=== PATIENT | female | born 1935 | race Caucasian/White ===

== ENCOUNTER 2016-02-26 08:23 | Day surgery (SDC) | payer OTHER, MEDICARE ==
[2016-02-26] MEDS ORDERED: PROPOFOL 20 ML ONE ×2 (08:41)
[2016-02-26 08:48] VITALS: BMI 35.2
[2016-02-26 10:01] VITALS: TEMP 97.3
[2016-02-26 10:45] VITALS: BP 127/74; PULSE 53
--- NOTE | 2016-02-27 13:10 | PATH ---
Surgical Pathology Report Patient Name: [facility]. Rec. #: [id number] /Age/Gender: 1935 (Age: 80) / F Account: [id number] Location: U-ENDOSCOPY Taken: 02/26/2016 Received: 02/26/2016 Reported: 02/27/2016 Physicians: Charly Morgan M.D. Specimen(s) Received BX POLYPS CECUM Clinical History Polyp surveillance, constipation Colon polyps Final Diagnosis COLON, CECUM, POLYPS, BIOPSY: POLYPOID FRAGMENTS OF COLONIC MUCOSA WITH FOCAL ACTIVE INFLAMMATION, REACTIVE LYMPHOID AGGREGATES AND SURFACE HYPERPLASTIC CHANGE MOST SUGGESTIVE OF INFLAMMATORY TYPE POLYPS. Electronically Signed Silas Herrera M.D. Gross Description Received in formalin, labeled "polyp cecum" are 3 levin, irregular portions of soft tissue ranging from 0.1-0.6 cm in greatest dimension. The specimens are submitted in toto in one cassette. 02/26/201602/26/2016
== END 2016-02-26 11:10 | disposition home or self-care (01) ==
LOC: JASU-ENDO 08:23
PROVIDERS: ATTEND Internal Medicine Gastroenterology
PROC: 0DBH8ZX Excision of Cecum, Via Natural or Artificial Opening Endoscopic, Diagnostic (ICD-10-PCS; principal; 2016-02-26 09:00)
DX: Z86.010 Personal history of colon polyps (principal); D12.0 Benign neoplasm of cecum; K57.30 Diverticulosis of large intestine without perforation or abscess without bleeding; K64.8 Other hemorrhoids
CPT/HCPCS: 88305-TC

== ENCOUNTER 2016-06-26 11:33 | Emergency (ER) | payer OTHER, MEDICARE ==
[2016-06-26 11:40] VITALS: TEMP 98; BMI 34.3
--- NOTE | 2016-06-26 12:03 | PDOC ---
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 HISTORY OF PRESENT ILLNESS: The patient states this morning she started having pressure in her chest, along with palpitations. She states she felt dizzy and nauseous as well. He daughter says she looked "clammy". The patient denies LOC , MACK, neck pain, cough, v/d, SOB, abd pain, slurred speech, facial drooping. She took all of her normal morning medications. PCP is Dr. Pedro Mushroom Cultivator is Dr. Lopez. Vital signs on arrival are within normal limits. REVIEW OF SYSTEMS: GENERAL/CONSTITUTIONAL: No fever/chills. No weakness. No weight change. HEAD, EYES, EARS, NOSE AND THROAT: No change in vision. No ear pain or discharge. No sore throat. CARDIOVASCULAR: +chest pain. +palpitations. No chest pain or shortness of breath. RESPIRATORY: No cough, wheezing, or hemoptysis. GASTROINTESTINAL: +nausea. No vomiting, diarrhea, constipation. GENITOURINARY: No dysuria, frequency, or change in urination. MUSCULOSKELETAL: No joint or muscle swelling or pain. No neck or back pain. SKIN: No rash or easy bruising. NEUROLOGIC: +dizziness. No headache, loss of consciousness, or loss of sensation. PHYSICAL EXAM: GENERAL: The patient is awake, alert, and fully oriented, in no acute distress. She is well appearing. No diaphoresis. HEAD: Normal with no signs of trauma. ENT: Pupils equal, round and reactive to light, extraocular movements intact, sclera anicteric, conjunctiva clear. Neck supple. LUNGS: Clear to auscultation bilaterally. Normal excursion. No respiratory distress or use of accessory muscles. CV: RRR, S1/S2, no MRG. Cap refill < 2 sec. No reproducible pain with palpation of anterior chest. ABDOMEN: Soft, non-distended, non-tender even to deep palpation, no hepatomegaly or splenomegaly, no masses. EXTREMITIES: Normal range of motion, no edema. NEUROLOGICAL: Normal speech, normal gait. CN II-XII grossly intact. No slurred speech. No facial droop. PSYCH: Normal mood, normal affect. SKIN: Warm, dry, normal turgor, no rashes or lesions noted. (Candelaria Cosby) Past History - Past Medical History Anemia: No Asthma: No Cancer: Yes (LEFT BREAST CANCER,OVARIAN CANCER) Cardiac Disorders: Yes (ASHD) CVA: No COPD: Yes CHF: No Dementia: No Diabetes: No GI Disorders: Yes (GASTRITIS,HIATAL HERNIA,ACID REFLUX,COLON POLYPS) Disorders: No HTN: Yes Hypercholesterolemia: Yes Liver Disease: Yes (H/O HEPATITIS B) Seizures: No - Surgical History Abdominal Surgery: No Appendectomy: No Cardiac Surgery: Yes (CARDIAC STENT) Cholecystectomy: No Lung Surgery: No Neurologic Surgery: No Orthopedic Surgery: Yes (Bilateral Knees and Shoulders) - Psycho/Social/Smoking Cessation Hx Anxiety: No Suicidal Ideation: No Smoking History: Never smoked Have you smoked in the past 12 months: No Information on smoking cessation initiated: No Hx Alcohol Use: No Drug/Substance Use Hx: No Substance Use Type: None Hx Substance Use Treatment: No <Candelaria Cosby - Last Filed: 06/26/16 19:04> <Thee Boyd - Last Filed: 06/26/16 20:43> - Past Medical History Allergies/Adverse Reactions: Allergies Allergy/AdvReac Type Severity Reaction Status Date / Time latex Allergy Intermediate Swelling Verified 06/26/16 11:40 Home Medications: Ambulatory Orders Clopidogrel Bisulfate [Plavix -] 75 mg PO DAILY 12/29/12 Losartan/Hydrochlorothiazide [Hyzaar 50-12.5 Tablet] 1 each PO DAILY 12/29/12 Ubidecarenone [Coq-10] 100 mg PO DAILY 12/29/12 Ranolazine [Ranexa] 500 mg PO DAILY 12/30/12 Rosuvastatin Calcium [Crestor] 10 mg PO HS 12/30/12 Furosemide [Lasix -] 20 mg PO DAILY PRN 08/22/13 Cholecalciferol (Vitamin D3) [Vitamin D3] 1,200 unit PO DAILY 06/26/16 Melatonin 10 mg PO DAILY 06/26/16 Metoclopramide HCl [Reglan -] 10 mg PO TID #10 tablet 06/26/16 Multivit-Min/FA/Lycopen/Lutein [Centrum Silver Tablet] 1 each PO DAILY 06/26/16 Cardiac Specific PMH - Complaint Specific PMHX Pacemaker: No <Candelaria Cosby - Last Filed: 06/26/16 19:04> - Vital Signs Last Vital Signs Temp Pulse Resp BP Pulse Ox 98.0 F 55 L 20 97/53 92 L 06/26/16 11:37 06/26/16 19:42 06/26/16 19:42 06/26/16 19:42 06/26/16 20:16 Heart Score/ECG Review <Candelaria Cosby - Last Filed: 06/26/16 19:04> <Thee Boyd - Last Filed: 06/26/16 20:43> - ECG Intrepretation Comment:: Twelve-lead EKG was performed and reviewed by Dr. Lockwood. There is normal sinus rhythm with a normal rate. The axis is normal. The intervals are normal. Inferior infarct, age undetermined Impression: Abnormal twelve-lead EKG (Candelaria Cosby) ED Treatment Course - LABORATORY CBC & Chemistry Diagram: 06/26/16 12:30 06/26/16 12:30 <Candelaria Cosby - Last Filed: 06/26/16 19:04> - LABORATORY CBC & Chemistry Diagram: 06/26/16 12:30 06/26/16 12:30 <Thee Boyd - Last Filed: 06/26/16 20:43> - ADDITIONAL ORDERS Additional order review: Laboratory Results 06/26/16 06/26/16 06/26/16 18:05 16:30 12:30 INR Sodium 141 Potassium 3.7 Chloride 103 Carbon Dioxide 31 Anion Gap 7 L BUN 21 H D Creatinine 0.9 Creat Clearance w eGFR > 60 Random Glucose 112 H D Calcium 8.7 Total Bilirubin 0.5 AST 18 ALT 21 Alkaline Phosphatase 54 Creatine Kinase 86 90 Troponin I < 0.02 < 0.02 B-Natriuretic Peptide 141.64 Total Protein 7.1 Albumin 3.8 Urine Color Yellow Urine Appearance Cloudy Urine pH 8.0 Ur Specific [place] 1.015 Urine Protein Negative Urine Glucose (UA) Negative Urine Ketones Negative Urine Blood Negative Urine Nitrite Negative Urine Bilirubin Negative Urine Urobilinogen Negative Ur Leukocyte Esterase Trace H Urine RBC 4 Urine WBC 11 Ur Epithelial Cells Rare Urine Mucus Rare Urine Yeast Few 06/26/16 12:30 INR 1.08 Sodium Potassium Chloride Carbon Dioxide Anion Gap BUN Creatinine Creat Clearance w eGFR Random Glucose Calcium Total Bilirubin AST ALT Alkaline Phosphatase Creatine Kinase Troponin I B-Natriuretic Peptide Total Protein Albumin Urine Color Urine Appearance Urine pH Ur Specific [place] Urine Protein Urine Glucose (UA) Urine Ketones Urine Blood Urine Nitrite Urine Bilirubin Urine Urobilinogen Ur Leukocyte Esterase Urine RBC Urine WBC Ur Epithelial Cells Urine Mucus Urine Yeast 06/26/16 12:30 RBC 4.14 MCV 94.6 MCHC 33.9 RDW 13.4 MPV 8.4 Neutrophils % 62.6 Lymphocytes % 26.8 D Monocytes % 8.5 Eosinophils % 1.0 Basophils % 1.1 - Medications Given in the ED: ED Medications Discontinued Medications Generic Name Dose Route Start Last Admin Trade Name Freq PRN Reason Stop Dose Admin Al Hydroxide/Mg Hydroxide 30 ml 06/26/16 14:34 06/26/16 14:53 Mylanta Oral Suspension - PO 06/26/16 14:35 30 ml ONCE ONE Administration Diphenhydramine HCl 25 mg 06/26/16 17:23 06/26/16 17:30 Benadryl Injection - IVPUSH 06/26/16 17:24 25 mg ONCE ONE Administration Famotidine/Sodium Chloride 50 mls @ 100 mls/hr 06/26/16 13:04 06/26/16 13:19 Pepcid 20 Mg Premixed Ivpb - IVPB 06/26/16 13:33 100 mls/hr ONCE ONE Administration Sodium Chloride 1,000 mls @ 1,000 mls/hr 06/26/16 13:44 06/26/16 14:18 Normal Saline - IV 06/26/16 14:43 1,000 mls/hr ASDIR STA Administration Sodium Chloride 1,000 mls @ 1,000 mls/hr 06/26/16 16:41 06/26/16 17:18 Normal Saline - IV 06/26/16 17:40 1,000 mls/hr ASDIR STA Administration Metoclopramide HCl 10 mg 06/26/16 17:23 06/26/16 17:30 Reglan Injection - IVPB 06/26/16 17:24 10 mg ONCE ONE Administration Ondansetron HCl 4 mg 06/26/16 13:23 06/26/16 13:27 Zofran Injection IVPB 06/26/16 13:24 4 mg ONCE ONE Administration Ondansetron HCl 4 mg 06/26/16 14:09 06/26/16 14:18 Zofran Injection IVPUSH 06/26/16 14:10 4 mg ONCE ONE Administration Medical Decision Making <Candelaria Cosby - Last Filed: 06/26/16 19:04> <Thee Boyd - Last Filed: 06/26/16 20:43> - Medical Decision Making A/P: 80 y/o female with chest pain, palpitations, dizziness and nausea this morning. The patient has a history of PR with 1 stent. She is currently on Plavix. Plan is as follows: 1. EKG 2. CXR 3. Labs CXR IMPRESSION: No evidence of pneumonia, CHF, pleural effusion. EKG normal Labs unremarkable. Pt states her chest pain has resolved. She is now only complaining of "sour stomach". The patient vomited. Given IV zofran. She vomited again. Gave another IV zofran, pepcid and IV fluids The patient was doing ok, waiting for 2nd troponin at 5pm when she vomited a large bolus of food. She denies abdominal pain. She does not want any more zofran. She wants more fluids. The patient continued to retch. Ordered IV benadryl and reglan. The patient states she feels much better after reglan and benadryl. She states that immediately calmed her stomach. She continues to deny abd pain. As long as 2nd cardiac enzyme is negative will d/c to home with rx for reglan. INstructed her and family to make sure she rehydrates and slowly reintroduces bland foods. Instructed them to call Dr. Pedro on Wednesday for follow up and return to the ER immediately with any worsening or concerning symptoms. The patient verbalizes understanding of all instructions, has no further questions and is awaiting discharge. (Candelaria Cosby) *DC/Admit/Observation/Transfer <Candelaria Cosby - Last Filed: 06/26/16 19:04> - Discharge Dispostion Admit: No <Thee Boyd - Last Filed: 06/26/16 20:43> Diagnosis at time of Disposition: Atypical chest pain Vomiting Qualifiers: Vomiting type: unspecified Vomiting Intractability: non-intractable Nausea presence: with nausea Qualified Code(s): R11.2 - Nausea with vomiting, unspecified - Discharge Dispostion Disposition: HOME Condition at time of disposition: Improved - Prescriptions Prescriptions: Metoclopramide HCl [Reglan -] 10 mg PO TID #10 tablet - Referrals Referrals: Chandler Pedro MD [Staff Physician] - (Call Wednesday) - Patient Instructions Printed Discharge Instructions: DI for Atypical Chest Pain, DI for Vomiting -- Adult Additional Instructions: Discharge Instructions: -A prescription was sent to your pharmacy for medication for vomiting; please take only as needed -Drink at least 64oz of water daily and slowly introduce bland foods until feeling better -Call Dr. Pedro on Wednesday to schedule follow up appointment -Return to the ER with any worsening or concerning symptoms
[2016-06-26 12:53] LABS: BASOPHIL 1.1 % (0-2.0); MCH 32.1 pg (25.7-33.7); MCHC 33.9 g/dl (32.0-36.0); MEAN CELL VOLUME 94.6 fl (80-96); MEAN PLT VOLUME 8.4 fl (7.5-11.1); NEUTROPHILS 62.6 % (42.8-82.8); PLATELET COUNT 187 K/MM3 (134-434); RDW 13.4 % (11.6-15.6)
[2016-06-26] MEDS ORDERED: FAMOTIDINE 20 MG/50 ML IVPB 50 ML IVPB ONE ×2 (13:04→13:14)
[2016-06-26 13:11] LABS: ALBUMIN 3.8 g/dl (3.4-5.0); ANION GAP 7 (8-16); CALCIUM 8.7 mg/dL (8.5-10.1); CO2 31 mmol/L (21-32); COCKROFT - GAULT 73.7715; CREATININE 0.9 mg/dL (0.55-1.02); GLUCOSE,RANDOM 112 mg/dL (74-106); SGOT/AST 18 U/L (15-37); SGPT/ALT 21 U/L (12-78); TOT PROT 7.1 g/dl (6.4-8.2)
[2016-06-26] MEDS ORDERED: ONDANSETRON 4 MG/2 ML VIAL IVPB ONE (13:23)
[2016-06-26] MEDS ORDERED: ONDANSETRON 4 MG/2 ML VIAL ONE ×2 (13:24→14:14)
[2016-06-26 13:26] LABS: ALK PHOS 54 U/L (45-117); BILIRUBIN,TOTAL 0.5 mg/dL (0.2-1.0); TROPONIN I < 0.02 ng/ml (0.00-0.05)
[2016-06-26 13:37] LABS: INR 1.08 (0.82-1.09); PROTHROMBIN TIME (PATIENT) 11.9 SEC (9.98-11.88)
[2016-06-26] MEDS ORDERED: SODIUM CHLORIDE 1,000 ML IV STA ×2 (13:44→16:41)
[2016-06-26] MEDS ORDERED: ONDANSETRON 4 MG/2 ML VIAL IVPUSH ONE (14:09)
[2016-06-26] MEDS ORDERED: MAG HYDROX/AL HYDROX/SIMETH 30 ML UNIT-DOSE CUP PO ONE (14:34)
[2016-06-26] MEDS ORDERED: MAG HYDROX/AL HYDROX/SIMETH 30 ML UNIT-DOSE CUP ONE (14:50)
--- NOTE | 2016-06-26 16:10 | EKG ---
Test Reason : Blood Pressure : / mmHG Vent. Rate : 066 BPM Atrial Rate : 066 BPM P-R Int : 156 ms QRS Dur : 072 ms QT Int : 442 ms P-R-T Axes : 044 -12 034 degrees QTc Int : 463 ms NORMAL SINUS RHYTHM INFERIOR INFARCT (CITED ON OR BEFORE 22-AUG-2013) ABNORMAL ECG WHEN COMPARED WITH ECG OF 22-AUG-2013 11:22, NO SIGNIFICANT CHANGE WAS FOUND Confirmed by COREY JOHNSON MD ([id number]) on 06/26/2016 4:10:24 PM Referred By: Confirmed By:COREY JOHNSON MD
[2016-06-26 17:01] LABS: URINE APPEARANCE CLOUDY; URINE BILIRUBIN NEGATIVE (NEGATIVE); URINE BLOOD NEGATIVE (NEGATIVE); URINE COLOR YELLOW; URINE GLUCOSE (UA) NEGATIVE (NEGATIVE); URINE KETONE NEGATIVE (NEGATIVE); URINE NITRITE NEGATIVE (NEGATIVE); URINE PROTEIN NEGATIVE (NEGATIVE); URINE UROBILINOGEN NEGATIVE E.U./dl (0.2-1.0)
[2016-06-26] MEDS ORDERED: METOCLOPRAMIDE HCL INJECTION 10 MG/2 ML VIAL ONE (17:08)
[2016-06-26 17:20] LABS: URINE LEUK ESTERASE TRACE (NEGATIVE)
[2016-06-26] MEDS ORDERED: METOCLOPRAMIDE HCL INJECTION 10 MG/2 ML VIAL IVPB ONE (17:23)
[2016-06-26 18:06] LABS: URINE MUCUS RARE; URINE RBC 4 /hpf (0-3); URINE WBC 11 /hpf (3-5); YEAST FEW
[2016-06-26 19:24] LABS: TROPONIN I < 0.02 ng/ml (0.00-0.05)
[2016-06-26 19:43] VITALS: BP 97/53; PULSE 55
== END 2016-06-26 21:05 | disposition home or self-care (01) ==
LOC: JER 11:33
PROC: 3E0337Z Introduction of Electrolytic and Water Balance Substance into Peripheral Vein, Percutaneous Approach (ICD-10-PCS; principal; 2016-06-26)
PROC: 3E033GC Introduction of Other Therapeutic Substance into Peripheral Vein, Percutaneous Approach (ICD-10-PCS; 2016-06-26)
PROC: 3E033GC Introduction of Other Therapeutic Substance into Peripheral Vein, Percutaneous Approach (ICD-10-PCS; 2016-06-26)
PROC: 3E033GC Introduction of Other Therapeutic Substance into Peripheral Vein, Percutaneous Approach (ICD-10-PCS; 2016-06-26)
DX: R07.89 Other chest pain (principal); R11.2 Nausea with vomiting, unspecified; I25.2 Old myocardial infarction; I25.10 Atherosclerotic heart disease of native coronary artery without angina pectoris; I10 Essential (primary) hypertension; Z95.5 Presence of coronary angioplasty implant and graft; E78.5 Hyperlipidemia, unspecified; J44.9 Chronic obstructive pulmonary disease, unspecified; Z86.19 Personal history of other infectious and parasitic diseases; Z85.3 Personal history of malignant neoplasm of breast; Z85.43 Personal history of malignant neoplasm of ovary; Z90.12 Acquired absence of left breast and nipple
CPT/HCPCS: 36415; 71020-TC; 80053; 81003; 81015; 82550; 83880; 84484; 85025; 85610; 87086; 87186; 93005; 93010; 96361; 96365; 96375; 99284-25

== ENCOUNTER 2018-01-07 11:38 | Observation (INO) | payer OTHER, MEDICARE ==
--- NOTE | 2018-01-07 12:02 | PDOC ---
History of Present Illness - General Chief Complaint: Syncope/Near Syncope Stated Complaint: INJURY Time Seen by Provider: 01/07/18 11:56 - History of Present Illness Initial Comments: 01/07/18 12:50 The patient is an 82 year old female with a history of HTN, HLD, CAD, MN, Breast CA who presents for evaluation following syncope. The patient reports that she was in a grocery store pushing a cart when she had a witnessed syncopal episode. She states she was pushing the shopping cart and the next thing she knew she was on the floor. She notes that she did hit her head on the floor. She otherwise denies fevers, chills, SOB, chest pain, nausea, vomiting, abdominal pain, numbness, tingling, weakness, or changes with urination or bowel movements. Past History - Past Medical History Allergies/Adverse Reactions: Allergies Allergy/AdvReac Type Severity Reaction Status Date / Time latex Allergy Intermediate Swelling Verified 01/07/18 11:49 Home Medications: Ambulatory Orders Losartan/Hydrochlorothiazide [Hyzaar 50-12.5 Tablet] 1 each PO DAILY 12/29/12 Ubidecarenone [Coq-10] 100 mg PO DAILY 12/29/12 Ranolazine [Ranexa] 500 mg PO BID 12/30/12 Cholecalciferol (Vitamin D3) [Vitamin D3] 1,000 unit PO DAILY 06/26/16 Multivit-Min/FA/Lycopen/Lutein [Centrum Silver Tablet] 1 each PO DAILY 06/26/16 Budesonide [Budesonide ER] 9 mg IH ASDIR 01/07/18 Clopidogrel Bisulfate [Plavix -] 75 mg PO DAILY 01/07/18 Melatonin 10 mg PO HS 01/07/18 Mv-Min/FA/Vit K/Lycop/Lut/Zeax [Ocuvite Eye + Multi Tablet] 1 each PO ASDIR Rosuvastatin [Crestor -] 10 mg PO DAILY 01/07/18 Tiotropium [place] [Spiriva] 1 inh PO DAILY 01/07/18 Anemia: No Asthma: No Cancer: Yes (LEFT BREAST CANCER,OVARIAN CANCER) Cardiac Disorders: Yes (ASHD) CVA: No COPD: Yes CHF: No Dementia: No Diabetes: No GI Disorders: Yes (GASTRITIS,HIATAL HERNIA,ACID REFLUX,COLON POLYPS) Disorders: No HTN: Yes Hypercholesterolemia: Yes Liver Disease: Yes (H/O HEPATITIS B) Seizures: No Thyroid Disease: No - Surgical History Abdominal Surgery: No Appendectomy: No Cardiac Surgery: Yes (CARDIAC STENT) Cholecystectomy: No Lung Surgery: No Neurologic Surgery: No Orthopedic Surgery: Yes (Bilateral Knees and Shoulders) - Suicide/Smoking/Psychosocial Hx Smoking History: Never smoked Have you smoked in the past 12 months: No Hx Alcohol Use: No Drug/Substance Use Hx: No Substance Use Type: None Hx Substance Use Treatment: No Review of Systems - Review of Systems Comments:: 01/07/18 12:52 Constitutional: No fevers, chills, fatigue, malaise HEENT: Head Trauma. No Rhinorrhea, nasal congestion, visual changes Cardiovascular: Syncope. No chest pain, palpitations, lightheadedness Respiratory: No Cough, SOB, Hemoptysis, Gastrointestinal: No Abdominal pain, Nausea, Vomiting, Constipation, Diarrhea, Melena Genitourinary: No Dysuria, Frequency, Urgency, Hesitancy, Hematuria, Flank pain Musculoskeletal: No Myalgia, arthralgia Skin: No rashes, itching, bruising, pallor Neurologic: No Headache, Dizziness, Numbness, Weakness, or Tingling Psychiatric: No Hallucinations. No SI or HI *Physical Exam - Vital Signs Last Vital Signs Temp Pulse Resp BP Pulse Ox 97.6 F 69 16 142/68 100 01/07/18 11:49 01/07/18 11:49 01/07/18 11:49 01/07/18 11:49 01/07/18 11:49 - Physical Exam Comments: 01/07/18 12:52 General Appearance: Nourished. No Apparent Distress HEENT: EOMI, BAILEY. No Pharyngeal Erythema, Tonsillar Exudate, Tonsillar Erythema Neck: No Cervical Lymphadenopathy Respiratory/Chest: Lungs Clear, Normal Breath Sounds. No Crackles, Rales, Rhonchi, Wheezing Cardiovascular: Regular Rhythm, Regular Rate. No Murmur, Gallops, Rubs Gastrointestinal/Abdominal: Normal Bowel Sounds, Soft. No Guarding, Rebound, Tenderness Musculoskeletal: No CVA Tenderness Extremity: Normal Capillary Refill Integumentary: Normal Color, Dry, Warm Neurologic: ironer II-XII NML intact, Fully Oriented, Alert, Normal Mood/Affect, Normal Response, Motor Strength 5/5. Moderate Sedation - Procedure Monitoring Vital Signs: Procedure Monitoring Vital Signs Temperature 97.6 F 01/07/18 11:49 Pulse Rate 69 01/07/18 11:49 Respiratory Rate 16 01/07/18 11:49 Blood Pressure 142/68 01/07/18 11:49 O2 Sat by Pulse Oximetry (%) 100 01/07/18 11:49 ED Treatment Course - LABORATORY CBC & Chemistry Diagram: 01/07/18 12:24 01/07/18 12:24 Medical Decision Making - Medical Decision Making 01/07/18 12:53 The patient is an 82 year old female with a history of HTN, HLD, CAD, MN, Breast CA who presents for evaluation following syncope. Differential includes but is not limited to: ACS, Arrhythmia, Intracranial process, Infectious, Metabolic Derangement. Given the patient's history and physical exam, we will obtain a cbc, cmp, troponin, ekg, chest plain film, head CT to evaluate further. We will continue to monitor and reassess while here in the ED. 01/07/18 17:09 CBC, cmp, troponin are unremarkable. Chest plain film is unremarkable. Head CT is unremarkable as read by our radiologist. UA demonstrates positive leuk esterase and elevated wbc consistent with a UTI. We will treat with ceftriaxone. Given the patient's syncopal episode and co-morbidities, she will require observation admission for further monitoring. We discussed the case with the admitting team who accepted the patient for admission. *DC/Admit/Observation/Transfer Diagnosis at time of Disposition: Syncope Qualifiers: Syncope type: unspecified Qualified Code(s): R55 - Syncope and collapse UTI (urinary tract infection) Qualifiers: Urinary tract infection type: site unspecified Hematuria presence: without hematuria Qualified Code(s): N39.0 - Urinary tract infection, site not specified - Discharge Dispostion Condition at time of disposition: Stable Decision to Admit order: Yes - Referrals - Patient Instructions - Post Discharge Activity
[2018-01-07 12:29] LABS: BASO % 1.3 % (0-2.0); EOS % 1.6 % (0-4.5); HEMOGLOBIN 14.4 GM/dL (10.7-15.3); LYMPH % 37.9 % (8-40); MCH 32.8 pg (25.7-33.7); MCHC 32.7 g/dl (32.0-36.0); MEAN CELL VOLUME 100.2 fl (80-96); MEAN PLT VOLUME 8.6 fl (7.5-11.1); MONO % 10.1 % (3.8-10.2); NEUT % 49.1 % (42.8-82.8); PLATELET COUNT 172 K/MM3 (134-434); RBC 4.39 M/mm3 (3.60-5.2); RDW 13.1 % (11.6-15.6); WHITE BLOOD COUNT 7.2 K/mm3 (4.0-10.0)
--- NOTE | 2018-01-07 12:34 | PDOC ---
Attending Attestation - Resident Resident Name: Modesto Mayer - ED Attending Attestation I have performed the following: I have examined & evaluated the patient, The case was reviewed & discussed with the resident, I agree w/resident's findings & plan, Exceptions are as noted - HPI HPI: 01/07/18 16:51 82 yo F here h/o cad, mi hld, htn, breast ca s/p syncopal episode while in grocery store pushing a care, next thing she knew she was on floor . pt denies cp or palpitation. no f/c no n/v no abd pain. no h/o prior syncope. no leg swelling. no h/o pe or dvt. did hit her head on the floor. 01/07/18 17:11 - Physicial Exam PE: 01/07/18 16:52 awake alert lungs clear bilaterally heart rrr no mrg abd soft nt nd. ext wwp no edema. no calf tenderness. alert oriented x 3 5/5 all four ext. - Medical Decision Making 01/07/18 16:53 differntial infection such as uti, pna, dysrhthmia, anemia dehydration. plan lab ekg tele monitoring. uq cxr ua. pt with uti, will treat with abx, admit tele r/o dysrhtymia. ekg unremarkable. Heart Score/ECG Review #1 General ECG Interpretation: Sinus Rhythm, Normal Rate (64), Normal Intervals, No acute ischemic changes
[2018-01-07 13:16] LABS: ALBUMIN 3.4 g/dl (3.4-5.0); ALK PHOS 71 U/L (45-117); ANION GAP 6 MMOL/L (8-16); BILIRUBIN,TOTAL 0.6 mg/dL (0.2-1); BLOOD UREA NITROGEN 19 mg/dL (7-18); CALCIUM 8.8 mg/dL (8.5-10.1); CHLORIDE 101 mmol/L (98-107); CO2 31 mmol/L (21-32); CREATININE 0.8 mg/dL (0.55-1.3); GLUCOSE,RANDOM 94 mg/dL (74-106); POTASSIUM 4.3 mmol/L (3.5-5.1); SGOT/AST 43 U/L (15-37); SGPT/ALT 35 U/L (13-61); SODIUM 138 mmol/L (136-145); TOT PROT 7.2 g/dl (6.4-8.2)
[2018-01-07 15:08] LABS: URINE APPEARANCE CLEAR; URINE BILIRUBIN NEGATIVE (<2.0 mg/dL); URINE COLOR LTYELLOW; URINE GLUCOSE (UA) NEGATIVE (NEGATIVE); URINE KETONE NEGATIVE (NEGATIVE); URINE LEUK ESTERASE 3+ (NEGATIVE); URINE NITRITE NEGATIVE (NEGATIVE); URINE PROTEIN NEGATIVE (NEGATIVE); URINE UROBILINOGEN NEGATIVE mg/dL (0.2-1.0)
[2018-01-07] MEDS ORDERED: CEFTRIAXONE 1 GM in DEXTROSE 5%-WATER - 100 ML IVPB ONE (15:46)
[2018-01-07] MEDS ORDERED: SODIUM CHLORIDE 1,000 ML IV SCH (16:15)
[2018-01-07] MEDS ORDERED: CEFTRIAXONE 1 GM/50 ML BAG ONE (16:18)
--- NOTE | 2018-01-07 16:21 | HP ---
CHIEF COMPLAINT: syncope PCP: HISTORY OF PRESENT ILLNESS: 82 yo F with PMHx HTN, HLD, CAD, [place], Breast CA who presents for evaluation following syncope. The patient reports that she was in a grocery store pushing a cart when she had a witnessed syncopal episode. She states she was pushing the shopping cart and the next thing she knew she was on the floor. She notes that she did hit her head on the floor. She otherwise denies fevers, chills, SOB, chest pain, nausea, vomiting. She endorses pyuria and increased frequency. ER course was notable for: (1)EKG shows Sinus Rhythm, Normal Rate (64), Normal Intervals, No acute ischemic changes (2)UA shows UTI (3)1gm Rocephin given. 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 PAST SURGICAL HISTORY: Social History: Smoking:never Alcohol:denies Drugs: denies Family History: Allergies latex Allergy (Intermediate, Verified 01/07/18 11:49) Swelling HOME MEDICATIONS: Home Medications Medication Instructions Recorded Losartan/Hydrochlorothiazide 1 each PO DAILY 12/29/12 [Hyzaar 50-12.5 Tablet] Ubidecarenone [Coq-10] 100 mg PO DAILY 12/29/12 Ranolazine [Ranexa] 500 mg PO BID 12/30/12 Cholecalciferol (Vitamin D3) 1,000 unit PO DAILY 06/26/16 [Vitamin D3] Multivit-Min/FA/Lycopen/Lutein 1 each PO DAILY 06/26/16 [Centrum Silver Tablet] Budesonide [Budesonide ER] 9 mg IH ASDIR 01/07/18 Clopidogrel Bisulfate [Plavix -] 75 mg PO DAILY 01/07/18 Melatonin 10 mg PO HS 01/07/18 Mv-Min/FA/Vit K/Lycop/Lut/Zeax 1 each PO ASDIR 01/07/18 [Ocuvite Eye + Multi Tablet] Rosuvastatin [Crestor -] 10 mg PO DAILY 01/07/18 Tiotropium [place] [Spiriva] 1 inh PO DAILY 01/07/18 REVIEW OF SYSTEMS CONSTITUTIONAL: Absent: fever, chills, diaphoresis, generalized weakness, malaise, loss of appetite, weight change HEENT: Absent: rhinorrhea, nasal congestion, throat pain, throat swelling, difficulty swallowing, mouth swelling, ear pain, eye pain, visual changes CARDIOVASCULAR: syncope Absent: chest pain,, palpitations, irregular heart rate, lightheadedness, peripheral edema RESPIRATORY: Absent: cough, shortness of breath, dyspnea with exertion, orthopnea, wheezing, stridor, hemoptysis GASTROINTESTINAL: Absent: abdominal pain, abdominal distension, nausea, vomiting, diarrhea, constipation, melena, hematochezia GENITOURINARY: Absent: dysuria, frequency, urgency, hesitancy, hematuria, flank pain, genital pain MUSCULOSKELETAL: Absent: myalgia, arthralgia, joint swelling, back pain, neck pain SKIN: Absent: rash, itching, pallor HEMATOLOGIC/IMMUNOLOGIC: Absent: easy bleeding, easy bruising, lymphadenopathy, frequent infections ENDOCRINE: Absent: unexplained weight gain, unexplained weight loss, heat intolerance, cold intolerance NEUROLOGIC: dizziness, unsteady gait Absent: headache, focal weakness or paresthesias, , seizure, mental status changes, bladder or bowel incontinence PSYCHIATRIC: Absent: anxiety, depression, suicidal or homicidal ideation, hallucinations. PHYSICAL EXAMINATION Vital Signs - 24 hr 01/07/18 11:49 Temperature 97.6 F Pulse Rate 69 Respiratory 16 Rate Blood Pressure 142/68 O2 Sat by Pulse 100 Oximetry (%) GENERAL: Awake and alert, NAD HEAD: NC, small hematoma on right parietal area of scalp . EYES: Pupils equal, round and reactive to light, extraocular movements intact, sclera anicteric, conjunctiva clear. No lid lag. EARS, NOSE, THROAT: Ears normal, nares patent, oropharynx clear without exudates. Moist mucous membranes. NECK: Normal range of motion, supple without lymphadenopathy, JVD, or masses. LUNGS: Breath sounds equal, clear to auscultation bilaterally. No wheezes, and no crackles. No accessory muscle use. HEART: Regular rate and rhythm, normal S1 and S2 without murmur, rub or gallop. ABDOMEN: Soft, suprapubic tenderness. , not distended, normoactive bowel sounds , no guarding, no rebound, no masses. No hepatomegaly or splenomegaly. MUSCULOSKELETAL: Normal range of motion at all joints. No bony deformities or tenderness. No CVA tenderness. UPPER EXTREMITIES: 2+ pulses, warm, well-perfused. No cyanosis. No clubbing. No peripheral edema. LOWER EXTREMITIES: 2+ pulses, warm, well-perfused. No calf tenderness. No peripheral edema. NEUROLOGICAL: Cranial nerves II-XII intact. Normal speech. Normal gait. PSYCHIATRIC: Cooperative. Good eye contact. Appropriate mood and affect. SKIN: Warm, dry, normal turgor, no rashes or lesions noted, normal capillary refill. Laboratory Results - last 24 hr 01/07/18 01/07/18 01/07/18 12:24 12:24 12:24 WBC 7.2 RBC 4.39 Hgb 14.4 Hct 44.0 MCV 100.2 H MCH 32.8 MCHC 32.7 RDW 13.1 Plt Count 172 MPV 8.6 Absolute Neuts (auto) 3.5 Neutrophils % 49.1 D Lymphocytes % 37.9 D Monocytes % 10.1 Eosinophils % 1.6 Basophils % 1.3 Nucleated RBC % 0 Sodium 138 Potassium 4.3 Chloride 101 Carbon Dioxide 31 Anion Gap 6 L BUN 19 H Creatinine 0.8 Creat Clearance w eGFR > 60 Random Glucose 94 Calcium 8.8 Total Bilirubin 0.6 AST 43 H ALT 35 Alkaline Phosphatase 71 Creatine Kinase 87 Troponin I < 0.02 Total Protein 7.2 Albumin 3.4 Urine Color Urine Appearance Urine pH Ur Specific [place] Urine Protein Urine Glucose (UA) Urine Ketones Urine Blood Urine Nitrite Urine Bilirubin Urine Urobilinogen Ur Leukocyte Esterase Urine WBC (Auto) Urine RBC (Auto) 01/07/18 14:56 WBC RBC Hgb Hct MCV MCH MCHC RDW Plt Count MPV Absolute Neuts (auto) Neutrophils % Lymphocytes % Monocytes % Eosinophils % Basophils % Nucleated RBC % Sodium Potassium Chloride Carbon Dioxide Anion Gap BUN Creatinine Creat Clearance w eGFR Random Glucose Calcium Total Bilirubin AST ALT Alkaline Phosphatase Creatine Kinase Troponin I Total Protein Albumin Urine Color Ltyellow Urine Appearance Clear Urine pH 6.0 Ur Specific [place] 1.010 Urine Protein Negative Urine Glucose (UA) Negative Urine Ketones Negative Urine Blood Negative Urine Nitrite Negative Urine Bilirubin Negative Urine Urobilinogen Negative Ur Leukocyte Esterase 3+ H Urine WBC (Auto) 14 Urine RBC (Auto) 1 ASSESSMENT/PLAN: 82 yo F with PMHx HTN, HLD, CAD, [place], Breast CA who presents for evaluation following syncope placed on observation to telemetry. Problem List - Problem (1) Syncope Assessment/Plan: most likely secondary to acute UTI. * place on observation to telemetry. * Orthostatic vital signs Q8H * Trend trops * Echo and carotid doppler pending * Cardiology consult * repeat EKG in AM * IVF with NS @ 50ml/hr (2) UTI (urinary tract infection) Assessment/Plan: * Urine cultures and sensativity pending. * Continue Ceftiaxone 1gm daily. * Repeat CBC in AM (3) CAD (coronary artery disease) Assessment/Plan: Continue statin and ranexa. (4) HTN (hypertension) Assessment/Plan: Continue HCTZ and losartan. (5) Hyperlipidemia type II Assessment/Plan: continue statin. Visit type - Emergency Visit Emergency Visit: Yes ED Registration Date: 01/07/18 Care time: The patient presented to the Emergency Department on the above date and was hospitalized for further evaluation of their emergent condition. - New Patient This patient is new to me today: Yes Date on this admission: 01/10/18 - Critical Care Critical Care patient: No
--- NOTE | 2018-01-07 17:36 | PN ---
Teaching Attending Note Name of Resident: Remberto Rosa ATTENDING PHYSICIAN STATEMENT I saw and evaluated the patient. I reviewed the resident's note and discussed the case with the resident. I agree with the resident's findings and plan as documented. SUBJECTIVE: Mrs Fonseca is a very pleasant 82 year old female who presents with syncopal episode and dysuria Past Medical History Cardio/Vascular CAD,HTN Pulmonary Sleep Apnea Heme/Onc Cancer Psych Anxiety,Depression Past Surgical History Past Surgical History Hysterectomy,Joint Replacement,Mastectomy Allergies Allergy/AdvReac Type Severity Reaction Status Date / Time latex Allergy Intermediate Swelling Verified 01/07/18 11:49 Home Medications Medication Instructions Recorded Losartan/Hydrochlorothiazide 1 each PO DAILY 12/29/12 [Hyzaar 50-12.5 Tablet] Ubidecarenone [Coq-10] 100 mg PO DAILY 12/29/12 Ranolazine [Ranexa] 500 mg PO BID 12/30/12 Cholecalciferol (Vitamin D3) 1,000 unit PO DAILY 06/26/16 [Vitamin D3] Multivit-Min/FA/Lycopen/Lutein 1 each PO DAILY 06/26/16 [Centrum Silver Tablet] Budesonide [Budesonide ER] 9 mg IH ASDIR 01/07/18 Clopidogrel Bisulfate [Plavix -] 75 mg PO DAILY 01/07/18 Melatonin 10 mg PO HS 01/07/18 Mv-Min/FA/Vit K/Lycop/Lut/Zeax 1 each PO ASDIR 01/07/18 [Ocuvite Eye + Multi Tablet] Rosuvastatin [Crestor -] 10 mg PO DAILY 01/07/18 Tiotropium [place] [Spiriva] 1 inh PO DAILY 01/07/18 Social History Smoking history Never smoked Have you smoked in the past 12 No months Hx Alcohol Use No ROS: patient complains of dysuria. Otherwise FROS negative OBJECTIVE: Gen: nad CV: rrr Pulm: ctab Abd: +bs, s/nt/nd Ext: no c/c/e ASSESSMENT AND PLAN: 1. Syncope 2. UTI 3. CAD 4. HTN -admit to telemetry observation -check ECHO and carotid ultrasound -cardiology consult -check orthostatics -rocephin for UTI -gentle hydration Problem List - Problems (1) Syncope Code(s): R55 - SYNCOPE AND COLLAPSE Qualifiers: Syncope type: unspecified Qualified Code(s): R55 - Syncope and collapse (2) UTI (urinary tract infection) Code(s): N39.0 - URINARY TRACT INFECTION, SITE NOT SPECIFIED Qualifiers: Urinary tract infection type: site unspecified Hematuria presence: without hematuria Qualified Code(s): N39.0 - Urinary tract infection, site not specified (3) CAD (coronary artery disease) Code(s): I25.10 - ATHSCL HEART DISEASE OF [place] CORONARY ARTERY W/O ANG PCTRS Qualifiers: Coronary Disease-Associated Artery/Lesion type: [place] artery [place] vs. transplanted heart: [place] heart Associated angina: with stable angina Qualified Code(s): I25.118 - Atherosclerotic heart disease of [place] coronary artery with other forms of angina pectoris (4) HTN (hypertension) Code(s): I10 - ESSENTIAL (PRIMARY) HYPERTENSION Qualifiers: Hypertension type: essential hypertension Qualified Code(s): I10 - Essential (primary) hypertension
[2018-01-07] MEDS: ROSUVASTATIN CA 10 MG TABLET (FP) PO SCH (21:53)
[2018-01-07] MEDS: RANOLAZINE E.R. 500 MG TABLET (FP) PO SCH (21:53)
[2018-01-07] MEDS: MELATONIN 5 MG TABLETS PO SCH (21:53)
[2018-01-07] MEDS ORDERED: MELATONIN 10 MG PO SCH (22:00)
[2018-01-08 04:55] VITALS: BMI 30.9
[2018-01-08 06:43] LABS: BASO % 0.7 % (0-2.0); EOS % 1.4 % (0-4.5); HEMATOCRIT 39.7 % (32.4-45.2); LYMPH % 39.5 % (8-40); MCH 32.6 pg (25.7-33.7); MCHC 32.8 g/dl (32.0-36.0); MEAN CELL VOLUME 99.5 fl (80-96); MONO % 12.7 % (3.8-10.2); NEUT % 45.7 % (42.8-82.8); PLATELET COUNT 142 K/MM3 (134-434); RBC 3.98 M/mm3 (3.60-5.2); WHITE BLOOD COUNT 5.7 K/mm3 (4.0-10.0)
[2018-01-08 06:57] LABS: ALBUMIN 2.9 g/dl (3.4-5.0); ALK PHOS 57 U/L (45-117); ANION GAP 8 MMOL/L (8-16); BILIRUBIN,TOTAL 0.6 mg/dL (0.2-1); BLOOD UREA NITROGEN 15 mg/dL (7-18); CALCIUM 8.3 mg/dL (8.5-10.1); CHLORIDE 105 mmol/L (98-107); CO2 28 mmol/L (21-32); CREATININE 0.8 mg/dL (0.55-1.3); GLUCOSE,RANDOM 85 mg/dL (74-106); MAGNESIUM 2.1 mg/dL (1.8-2.4); PHOSPHOROUS 3.5 mg/dL (2.5-4.9); POTASSIUM 3.6 mmol/L (3.5-5.1); SGOT/AST 24 U/L (15-37); SGPT/ALT 27 U/L (13-61); SODIUM 141 mmol/L (136-145); TOT PROT 5.8 g/dl (6.4-8.2)
[2018-01-08] MEDS ORDERED: LOSARTAN 50MG/HCTZ 12.5MG 1 TAB (FP) PO SCH (10:00)
[2018-01-08] MEDS ORDERED: PATIENT'S OWN MEDICATION (NON-FORMULARY) (Multivit-Min/Fa/Lycopen/Lutein [Centrum Silver T PO SCH (10:00)
[2018-01-08] MEDS ORDERED: PATIENT'S OWN MEDICATION (NON-FORMULARY) (Tiotropium Bromide [Spiriva] 1 INH) PO SCH (10:00)
[2018-01-08] MEDS ORDERED: PATIENT'S OWN MEDICATION (NON-FORMULARY) (Ubidecarenone [Coq-10] 100 MG) PO SCH (10:00)
[2018-01-08] MEDS ORDERED: CEFTRIAXONE 1 GM in DEXTROSE 5%-WATER - 50 ML IVPB SCH (10:00)
--- NOTE | 2018-01-08 10:15 | CON.CARD ---
Consult Consult Specialty:: Cardiology Referred by:: Beverley Reason for Consultation:: syncope - History of Present Illness Chief Complaint: syncope History of Present Illness: 82F h/o HTN, HLD, CAD, [place], breast cancer p/w syncope. Was in the grocery store pushing a cart, lost consciousness. Witnessed episode, not sure how long episode was. no prodrome. No chest pain, palps. In the ER UA c/w UTI, started on abx, stopped for negative culture. Sees John for cardio, saw him earlier this month with plan for stress test given dyspnea on exertion for the last 4 months. No prior episode of syncope. Today feels weak and dizzy. did not feel dizzy prior to syncopal episode - Past Medical History Cardio/Vascular: Yes: CAD, HTN. No: AFIB, CHF Pulmonary: Yes: Sleep Apnea (on CPAP at home) Psych: Yes: Anxiety, Depression - Past Surgical History Past Surgical History: Yes: Hysterectomy, Joint Replacement (b/l knees), Mastectomy - Alcohol/Substance Use Hx Alcohol Use: No - Smoking History Smoking history: Never smoked Have you smoked in the past 12 months: No Home Medications - Allergies Allergies/Adverse Reactions: Allergies Allergy/AdvReac Type Severity Reaction Status Date / Time latex Allergy Intermediate Swelling Verified 01/07/18 11:49 - Home Medications Home Medications: Ambulatory Orders Losartan/Hydrochlorothiazide [Hyzaar 50-12.5 Tablet] 1 each PO DAILY 12/29/12 Ubidecarenone [Coq-10] 100 mg PO DAILY 12/29/12 Ranolazine [Ranexa] 500 mg PO BID 12/30/12 Cholecalciferol (Vitamin D3) [Vitamin D3] 1,000 unit PO DAILY 06/26/16 Multivit-Min/FA/Lycopen/Lutein [Centrum Silver Tablet] 1 each PO DAILY 06/26/16 Budesonide [Budesonide ER] 9 mg IH ASDIR 01/07/18 Clopidogrel Bisulfate [Plavix -] 75 mg PO DAILY 01/07/18 Melatonin 10 mg PO HS 01/07/18 Mv-Min/FA/Vit K/Lycop/Lut/Zeax [Ocuvite Eye + Multi Tablet] 1 each PO ASDIR Rosuvastatin [Crestor -] 10 mg PO DAILY 01/07/18 Tiotropium [place] [Spiriva] 1 inh PO DAILY 01/07/18 Tramadol HCl 50 mg PO 01/08/18 Family Disease History - Family Disease History Family History: Unremarkable Review of Systems - Review of Systems Constitutional: reports: Weakness Eyes: reports: No Symptoms HENT: reports: No Symptoms Neck: reports: No Symptoms Cardiovascular: reports: Shortness of Breath Respiratory: reports: No Symptoms Gastrointestinal: reports: No Symptoms Genitourinary: reports: No Symptoms Musculoskeletal: reports: No Symptoms Integumentary: reports: No Symptoms Neurological: reports: Dizziness Endocrine: reports: No Symptoms Hematology/Lymphatic: reports: No Symptoms Psychiatric: reports: No Symptoms Vital Signs: Vital Signs Temperature 98.3 F 01/08/18 09:51 Pulse Rate 77 01/08/18 09:51 Respiratory Rate 14 01/08/18 09:51 Blood Pressure 107/63 01/08/18 09:51 O2 Sat by Pulse Oximetry (%) 96 01/08/18 08:45 Constitutional: Yes: No Distress, Calm Eyes: Yes: Conjunctiva Clear, EOM Intact HENT: Yes: Atraumatic, Normocephalic Neck: Yes: Supple, Trachea Midline Respiratory: Yes: Regular, CTA Bilaterally Gastrointestinal: Yes: Normal Bowel Sounds, Soft Cardiovascular: Yes: Regular Rate and Rhythm JVD: No Heart Sounds: Yes: S1, S2 Musculoskeletal: No: Back Pain Extremities: No: Cold Edema: No Peripheral Pulses WNL: No Peripheral Pulses: 2+ Left Doralis Pedis, 2+ Right Dorsalis Pedis Integumentary: No: Jaundice Neurological: Yes: Alert, Oriented Psychiatric: Yes: Alert, Oriented - Other Data Labs, Other Data: CBC, BMP 01/08/18 05:30 01/08/18 05:30 Troponin, BNP 01/07/18 01/07/18 01/08/18 12:24 20:15 01:10 Troponin I < 0.02 < 0.02 < 0.02 Troponin, BNP 01/07/18 01/07/18 01/08/18 12:24 20:15 01:10 Troponin I < 0.02 < 0.02 < 0.02 Assessment/Plan Carotid dopplers: no hemodynamically significant stenosis CXR: no acute process Head CT no acute process EKG: sinus rhythm, no ischemic changes tele:sinus 82F h/o HTN, HLD, CAD, [place], breast cancer p/w syncope Syncope - may be vasovagal vs orthostatic vs arrhythmia (no prodrome) - carotid dopplers no stenosis, EKG unremarkable - monitoring on tele, trop neg x 2 - echo pending CAD - continue plavix, statin, ranexa HTN - stable on home meds
[2018-01-08] MEDS ORDERED: cefTRIAXone SODIUM 1 GM VIAL ONE (10:16)
[2018-01-08] MEDS ORDERED: DEXTROSE 5%-WATER - 50 ML IVPB ONE (10:17)
[2018-01-08] MEDS: ENOXAPARIN NA (PORCINE) 40 MG/0.4 ML DISP.SYRIN SQ SCH (11:05)
[2018-01-08] MEDS: CHOLECALCIFEROL (VITAMIN D3) 1,000 UNIT TABLET (FP) PO SCH (11:06)
[2018-01-08] MEDS: MULTIVITAMINS (DAILY MVI) TABLET (FP) PO SCH (11:06)
[2018-01-08] MEDS: RANOLAZINE E.R. 500 MG TABLET (FP) PO SCH ×2 (11:06→21:49)
[2018-01-08] MEDS: CLOPIDOGREL BISULFATE 75 MG TABLET (FP) PO SCH (11:06)
[2018-01-08] MEDS: TIOTROPIUM BROMIDE 2.5 MCG (SPIRIVA) RESPIMAT INHALER IH SCH (11:07)
--- NOTE | 2018-01-08 11:28 | PN ---
Progress Note, Physician Chief Complaint: Mrs Fonseca says she is feeling better today. Has slight weakness but improved. No cp, sob, n/v. - Current Medication List Current Medications: Active Medications Cholecalciferol (Vitamin D3 -) 1,000 unit PO DAILY [facility] Last Admin: 01/08/18 11:06 Dose: 1,000 unit Clopidogrel Bisulfate (Plavix -) 75 mg PO DAILY [facility] Last Admin: 01/08/18 11:06 Dose: 75 mg Enoxaparin Sodium (Lovenox -) 40 mg SQ DAILY [facility] Last Admin: 01/08/18 11:05 Dose: 40 mg HCTZ/Losartan Potassium (Hyzaar -) 1 tab PO DAILY [facility] Last Admin: 01/08/18 11:06 Dose: Not Given Sodium Chloride (Normal Saline -) 1,000 mls @ 50 mls/hr IV ASDIR [facility] Stop: 01/08/18 16:09 Last Admin: 01/07/18 16:19 Dose: 50 mls/hr Melatonin (Melatonin) 10 mg PO [facility] Last Admin: 01/07/18 21:53 Dose: 10 mg Mometasone Furoate (Asmanex 220mcg -) 1 puff IH [facility] Multivitamins/Minerals/Vitamin C (Tab-A-Vit -) 1 tab PO DAILY [facility] Last Admin: 01/08/18 11:06 Dose: 1 tab Ranolazine (Ranexa -) 500 mg PO BID [facility] Last Admin: 01/08/18 11:06 Dose: 500 mg Rosuvastatin Calcium (Crestor -) 10 mg PO HS [facility] Last Admin: 01/07/18 21:53 Dose: 10 mg Tiotropium [place] (Spiriva Respimat) 2 puff IH DAILY [facility] Last Admin: 01/08/18 11:07 Dose: Not Given - Objective Vital Signs: Vital Signs Temperature 36.8 C 01/08/18 09:51 Pulse Rate 77 01/08/18 09:51 Respiratory Rate 14 01/08/18 09:51 Blood Pressure 107/63 01/08/18 09:51 O2 Sat by Pulse Oximetry (%) 96 01/08/18 08:45 Constitutional: Yes: Well Nourished, No Distress, Calm Cardiovascular: Yes: Regular Rate and Rhythm. No: Gallop, Murmur, Rub Respiratory: Yes: Regular, CTA Bilaterally. No: Rales, Rhonchi, Wheezes Gastrointestinal: Yes: Normal Bowel Sounds, Soft. No: Distention, Tenderness Extremities: Yes: WNL Edema: No Labs: CBC, BMP 01/08/18 05:30 01/08/18 05:30 Problem List - Problems (1) Syncope Assessment/Plan: -unclear cause -patient still complains of general weakness -case d/w cardiology -PT consult placed -carotid dopplers performed and read reviewed -not orthostatic -will need ECHO prior to discharge, Dr Aquino in agreement Code(s): R55 - SYNCOPE AND COLLAPSE Qualifiers: Syncope type: unspecified Qualified Code(s): R55 - Syncope and collapse (2) UTI (urinary tract infection) Assessment/Plan: -urine culture NGTD -stop rocephin Code(s): N39.0 - URINARY TRACT INFECTION, SITE NOT SPECIFIED Qualifiers: Urinary tract infection type: site unspecified Hematuria presence: without hematuria Qualified Code(s): N39.0 - Urinary tract infection, site not specified (3) CAD (coronary artery disease) Assessment/Plan: -no chest pain or other signs of angina -continue home regimen -continue telemetry -cardiology following Code(s): I25.10 - ATHSCL HEART DISEASE OF [place] CORONARY ARTERY W/O ANG PCTRS Qualifiers: Coronary Disease-Associated Artery/Lesion type: [place] artery [place] vs. transplanted heart: [place] heart Associated angina: with stable angina Qualified Code(s): I25.118 - Atherosclerotic heart disease of [place] coronary artery with other forms of angina pectoris (4) HTN (hypertension) Assessment/Plan: -low normal -monitor -continue IVF currently Code(s): I10 - ESSENTIAL (PRIMARY) HYPERTENSION Qualifiers: Hypertension type: essential hypertension Qualified Code(s): I10 - Essential (primary) hypertension (5) Hyperlipidemia type II Assessment/Plan: -continue crestor
--- NOTE | 2018-01-08 17:09 | EKG ---
Test Reason : Blood Pressure : / mmHG Vent. Rate : 065 BPM Atrial Rate : 065 BPM P-R Int : 154 ms QRS Dur : 076 ms QT Int : 436 ms P-R-T Axes : 058 025 052 degrees QTc Int : 453 ms NORMAL SINUS RHYTHM NORMAL ECG WHEN COMPARED WITH ECG OF 07-JAN-2018 12:14, CRITERIA FOR INFERIOR INFARCT ARE NO LONGER PRESENT Confirmed by MD AGNES, ESTELA ([id number]) on 01/08/2018 5:09:07 PM Referred By: Confirmed By:ESTELA ALARCON MD
--- NOTE | 2018-01-08 17:22 | EKG ---
Test Reason : Blood Pressure : / mmHG Vent. Rate : 064 BPM Atrial Rate : 064 BPM P-R Int : 154 ms QRS Dur : 078 ms QT Int : 436 ms P-R-T Axes : 041 -22 023 degrees QTc Int : 449 ms NORMAL SINUS RHYTHM INFERIOR INFARCT (CITED ON OR BEFORE 22-AUG-2013) ABNORMAL ECG WHEN COMPARED WITH ECG OF 26-JUN-2016 11:46, NO SIGNIFICANT CHANGE WAS FOUND Confirmed by MD AGNES, ESTELA ([id number]) on 01/08/2018 5:21:39 PM Referred By: Confirmed By:ESTELA ALARCON MD
[2018-01-08] MEDS ORDERED: ACETAMINOPHEN 500 MG TABLET (FP) PO ONE (21:15)
[2018-01-08] MEDS ORDERED: PT OWN MED DRAWER 7, Y5N ONE (21:31)
[2018-01-08] MEDS: MELATONIN 5 MG TABLETS PO SCH (21:49)
[2018-01-08] MEDS: ROSUVASTATIN CA 10 MG TABLET (FP) PO SCH (21:49)
[2018-01-08] MEDS: MOMETASONE FUROATE 220 MCG/IH INHALER IH SCH (23:53)
[2018-01-09 07:53] LABS: ANION GAP 10 MMOL/L (8-16); BLOOD UREA NITROGEN 20 mg/dL (7-18); CALCIUM 8.5 mg/dL (8.5-10.1); CHLORIDE 103 mmol/L (98-107); CO2 28 mmol/L (21-32); CREATININE 0.8 mg/dL (0.55-1.3); GLUCOSE,RANDOM 83 mg/dL (74-106); MAGNESIUM 2.5 mg/dL (1.8-2.4); PHOSPHOROUS 3.2 mg/dL (2.5-4.9); SODIUM 141 mmol/L (136-145)
[2018-01-09 08:29] LABS: BASO % 1.2 % (0-2.0); HEMOGLOBIN 13.8 GM/dL (10.7-15.3); LYMPH % 47.5 % (8-40); MCH 32.3 pg (25.7-33.7); MEAN CELL VOLUME 100.9 fl (80-96); MEAN PLT VOLUME 9.2 fl (7.5-11.1); MONO % 13.1 % (3.8-10.2); NEUT % 36.2 % (42.8-82.8); PLATELET COUNT 149 K/MM3 (134-434); RBC 4.26 M/mm3 (3.60-5.2); WHITE BLOOD COUNT 5.7 K/mm3 (4.0-10.0)
--- NOTE | 2018-01-09 09:56 | PN ---
Progress Note (short form) - Note Progress Note: s: no cp sob palps dizzy o: Vital Signs Period Temp Pulse Resp BP Sys/[place] Pulse Ox Last 24 Hr 97.4 F-98.6 F 54-62 17-18 95-118/51-73 96-98 Constitutional: Yes: No Distress, Calm Eyes: Yes: Conjunctiva Clear Respiratory: Yes: Regular, CTA Bilaterally Gastrointestinal: Yes: Normal Bowel Sounds, Soft Cardiovascular: Yes: Regular Rate and Rhythm JVD: No Heart Sounds: Yes: S1, S2 Extremities: No: Cold Edema: No Peripheral Pulses: 2+ Left Doralis Pedis, 2+ Right Dorsalis Pedis Integumentary: No: Jaundice Neurological: Yes: Alert, Oriented Current Medications Generic Name Dose Route Start Last Admin Trade Name Freq PRN Reason Stop Dose Admin Cholecalciferol 1,000 unit 01/08/18 10:00 01/08/18 11:06 Vitamin D3 - PO 1,000 unit DAILY [facility] Administration Clopidogrel Bisulfate 75 mg 01/08/18 10:00 01/08/18 11:06 Plavix - PO 75 mg DAILY [facility] Administration Enoxaparin Sodium 40 mg 01/08/18 10:00 01/08/18 11:05 Lovenox - SQ 40 mg DAILY [facility] Administration Melatonin 10 mg 01/07/18 22:00 01/08/18 21:49 Melatonin PO 10 mg HS [facility] Administration Mometasone Furoate 1 puff 01/08/18 22:00 01/08/18 23:53 Asmanex 220mcg - IH Not Given HS [facility] Multivitamins/Minerals/Vitamin C 1 tab 01/08/18 10:00 01/08/18 11:06 Tab-A-Vit - PO 1 tab DAILY [facility] Administration Ranolazine 500 mg 01/07/18 22:00 01/08/18 21:49 Ranexa - PO 500 mg BID [facility] Administration Rosuvastatin Calcium 10 mg 01/07/18 22:00 01/08/18 21:49 Crestor - PO 10 mg HS [facility] Administration Tiotropium [place] 2 puff 01/08/18 10:00 01/08/18 11:07 Spiriva Respimat IH Not Given DAILY [facility] CBC, BMP 01/09/18 05:30 01/09/18 05:30 Assessment/Plan Carotid dopplers: no hemodynamically significant stenosis CXR: no acute process Head CT no acute process EKG: sinus rhythm, no ischemic changes tele:sinus 82F h/o HTN, HLD, CAD, [place], breast cancer p/w syncope Syncope - may be vasovagal vs orthostatic vs arrhythmia (no prodrome) - carotid dopplers no stenosis, EKG unremarkable - monitoring on tele, trop neg - echo pending CAD - continue plavix, statin, ranexa HTN - stable on home meds
[2018-01-09] MEDS: RANOLAZINE E.R. 500 MG TABLET (FP) PO SCH ×2 (09:59→21:25)
[2018-01-09] MEDS: ENOXAPARIN NA (PORCINE) 40 MG/0.4 ML DISP.SYRIN SQ SCH (09:59)
[2018-01-09] MEDS: MULTIVITAMINS (DAILY MVI) TABLET (FP) PO SCH (10:00)
[2018-01-09] MEDS: CLOPIDOGREL BISULFATE 75 MG TABLET (FP) PO SCH (10:00)
[2018-01-09] MEDS: CHOLECALCIFEROL (VITAMIN D3) 1,000 UNIT TABLET (FP) PO SCH (10:00)
[2018-01-09] MEDS: TIOTROPIUM BROMIDE 2.5 MCG (SPIRIVA) RESPIMAT INHALER IH SCH (10:00)
--- NOTE | 2018-01-09 10:53 | PN ---
Progress Note, Physician Chief Complaint: Mrs Fonseca says her weakness is unchanged. Denies cp, sob, n/v. - Current Medication List Current Medications: Active Medications Cholecalciferol (Vitamin D3 -) 1,000 unit PO DAILY [facility] Last Admin: 01/09/18 10:00 Dose: 1,000 unit Clopidogrel Bisulfate (Plavix -) 75 mg PO DAILY [facility] Last Admin: 01/09/18 10:00 Dose: 75 mg Enoxaparin Sodium (Lovenox -) 40 mg SQ DAILY [facility] Last Admin: 01/09/18 09:59 Dose: 40 mg Melatonin (Melatonin) 10 mg PO HS [facility] Last Admin: 01/08/18 21:49 Dose: 10 mg Mometasone Furoate (Asmanex 220mcg -) 1 puff IH [facility] Last Admin: 01/08/18 23:53 Dose: Not Given Multivitamins/Minerals/Vitamin C (Tab-A-Vit -) 1 tab PO DAILY [facility] Last Admin: 01/09/18 10:00 Dose: 1 tab Ranolazine (Ranexa -) 500 mg PO BID [facility] Last Admin: 01/09/18 09:59 Dose: 500 mg Rosuvastatin Calcium (Crestor -) 10 mg PO HS [facility] Last Admin: 01/08/18 21:49 Dose: 10 mg Tiotropium [place] (Spiriva Respimat) 2 puff IH DAILY [facility] Last Admin: 01/09/18 10:00 Dose: Not Given - Objective Vital Signs: Vital Signs Temperature 36.6 C 01/09/18 08:26 Pulse Rate 56 L 01/09/18 08:26 Respiratory Rate 18 01/09/18 08:26 Blood Pressure 117/68 01/09/18 08:26 O2 Sat by Pulse Oximetry (%) 98 01/09/18 08:00 Constitutional: Yes: Well Nourished, No Distress, Calm Cardiovascular: Yes: Regular Rate and Rhythm. No: Gallop, Murmur, Rub Respiratory: Yes: Regular, CTA Bilaterally. No: Rales, Rhonchi, Wheezes Gastrointestinal: Yes: Normal Bowel Sounds, Soft. No: Distention, Tenderness Extremities: Yes: WNL Edema: No Labs: CBC, BMP 01/09/18 05:30 01/09/18 05:30 Problem List - Problems (1) Syncope Code(s): R55 - SYNCOPE AND COLLAPSE Qualifiers: Syncope type: unspecified Qualified Code(s): R55 - Syncope and collapse (2) UTI (urinary tract infection) Code(s): N39.0 - URINARY TRACT INFECTION, SITE NOT SPECIFIED Qualifiers: Urinary tract infection type: site unspecified Hematuria presence: without hematuria Qualified Code(s): N39.0 - Urinary tract infection, site not specified (3) CAD (coronary artery disease) Code(s): I25.10 - ATHSCL HEART DISEASE OF [place] CORONARY ARTERY W/O ANG PCTRS Qualifiers: Coronary Disease-Associated Artery/Lesion type: [place] artery [place] vs. transplanted heart: [place] heart Associated angina: with stable angina Qualified Code(s): I25.118 - Atherosclerotic heart disease of [place] coronary artery with other forms of angina pectoris (4) HTN (hypertension) Code(s): I10 - ESSENTIAL (PRIMARY) HYPERTENSION Qualifiers: Hypertension type: essential hypertension Qualified Code(s): I10 - Essential (primary) hypertension Assessment/Plan (1) Syncope Assessment/Plan: -case d/w Dr Cervantes -ECHO pending -continue telemetry monitoring -PT consulted Code(s): R55 - SYNCOPE AND COLLAPSE Qualifiers: Syncope type: unspecified Qualified Code(s): R55 - Syncope and collapse (2) UTI (urinary tract infection) Assessment/Plan: -urine culture NGTD Code(s): N39.0 - URINARY TRACT INFECTION, SITE NOT SPECIFIED Qualifiers: Urinary tract infection type: site unspecified Hematuria presence: without hematuria Qualified Code(s): N39.0 - Urinary tract infection, site not specified (3) CAD (coronary artery disease) Assessment/Plan: -no chest pain or other signs of angina -continue home regimen -continue telemetry -cardiology following Code(s): I25.10 - ATHSCL HEART DISEASE OF [place] CORONARY ARTERY W/O ANG PCTRS Qualifiers: Coronary Disease-Associated Artery/Lesion type: [place] artery [place] vs. transplanted heart: [place] heart Associated angina: with stable angina Qualified Code(s): I25.118 - Atherosclerotic heart disease of [place] coronary artery with other forms of angina pectoris (4) HTN (hypertension) Assessment/Plan: -low normal -stopped antihypertensives currently -monitor Code(s): I10 - ESSENTIAL (PRIMARY) HYPERTENSION Qualifiers: Hypertension type: essential hypertension Qualified Code(s): I10 - Essential (primary) hypertension (5) Hyperlipidemia type II Assessment/Plan: -continue crestor
[2018-01-09] MEDS: ACETAMINOPHEN 325 MG TABLET (FP) PO PRN (12:46)
[2018-01-09] MEDS ORDERED: PT OWN MED DRAWER 7, Y5N ONE (17:38)
[2018-01-09] MEDS: ROSUVASTATIN CA 10 MG TABLET (FP) PO SCH (21:25)
[2018-01-09] MEDS: MELATONIN 5 MG TABLETS PO SCH (21:25)
[2018-01-09] MEDS: MOMETASONE FUROATE 220 MCG/IH INHALER IH SCH (22:25)
[2018-01-10] MEDS: ACETAMINOPHEN 325 MG TABLET (FP) PO PRN (06:00)
[2018-01-10 06:55] LABS: BASO % 1.3 % (0-2.0); EOS % 2.6 % (0-4.5); HEMATOCRIT 41.5 % (32.4-45.2); HEMOGLOBIN 13.5 GM/dL (10.7-15.3); LYMPH % 48.5 % (8-40); MCH 32.6 pg (25.7-33.7); MCHC 32.5 g/dl (32.0-36.0); MEAN CELL VOLUME 100.2 fl (80-96); MEAN PLT VOLUME 8.9 fl (7.5-11.1); MONO % 12.1 % (3.8-10.2); NEUT % 35.5 % (42.8-82.8); PLATELET COUNT 136 K/MM3 (134-434); RBC 4.15 M/mm3 (3.60-5.2); WHITE BLOOD COUNT 4.8 K/mm3 (4.0-10.0)
[2018-01-10 07:11] LABS: ANION GAP 8 MMOL/L (8-16); BLOOD UREA NITROGEN 16 mg/dL (7-18); CALCIUM 8.4 mg/dL (8.5-10.1); CHLORIDE 107 mmol/L (98-107); CO2 28 mmol/L (21-32); CREATININE 0.8 mg/dL (0.55-1.3); GLUCOSE,RANDOM 113 mg/dL (74-106); MAGNESIUM 2.3 mg/dL (1.8-2.4); PHOSPHOROUS 3.5 mg/dL (2.5-4.9); POTASSIUM 3.5 mmol/L (3.5-5.1); SODIUM 142 mmol/L (136-145)
--- NOTE | 2018-01-10 09:28 | PN ---
Progress Note, Physician Chief Complaint: syncope History of Present Illness: no dizzy, palpit, cp, sob - Current Medication List Current Medications: Active Medications Acetaminophen (Tylenol -) 650 mg PO Q4H PRN PRN Reason: PAIN Last Admin: 01/10/18 06:00 Dose: 650 mg Cholecalciferol (Vitamin D3 -) 1,000 unit PO DAILY [facility] Last Admin: 01/09/18 10:00 Dose: 1,000 unit Clopidogrel Bisulfate (Plavix -) 75 mg PO DAILY [facility] Last Admin: 01/09/18 10:00 Dose: 75 mg Enoxaparin Sodium (Lovenox -) 40 mg SQ DAILY [facility] Last Admin: 01/09/18 09:59 Dose: 40 mg Melatonin (Melatonin) 10 mg PO HS [facility] Last Admin: 01/09/18 21:25 Dose: 10 mg Mometasone Furoate (Asmanex 220mcg -) 1 puff IH [facility] Last Admin: 01/09/18 22:25 Dose: 1 puff Multivitamins/Minerals/Vitamin C (Tab-A-Vit -) 1 tab PO DAILY [facility] Last Admin: 01/09/18 10:00 Dose: 1 tab Ranolazine (Ranexa -) 500 mg PO BID [facility] Last Admin: 01/09/18 21:25 Dose: 500 mg Rosuvastatin Calcium (Crestor -) 10 mg PO HS [facility] Last Admin: 01/09/18 21:25 Dose: 10 mg Tiotropium [place] (Spiriva Respimat) 2 puff IH DAILY [facility] Last Admin: 01/09/18 10:00 Dose: Not Given - Objective Vital Signs: Vital Signs Temperature 98.4 F 01/10/18 08:44 Pulse Rate 64 01/10/18 08:44 Respiratory Rate 16 01/10/18 08:44 Blood Pressure 110/76 01/10/18 08:44 O2 Sat by Pulse Oximetry (%) 98 01/10/18 08:03 Constitutional: Yes: Well Nourished, No Distress, Calm Cardiovascular: Yes: Regular Rate and Rhythm, S1, S2. No: Gallop, Murmur Respiratory: Yes: Regular, CTA Bilaterally. No: Accessory Muscle Use Extremities: No: Cold Edema: No Neurological: Yes: Alert, Oriented Psychiatric: No: Agitated Labs: CBC, BMP 01/10/18 05:30 01/10/18 05:30 Assessment/Plan EKG: sinus rhythm, no ischemic changes CXR: no acute process Carotid dopplers: no hemodynamically significant stenosis Head CT no acute process [facility] 2010 (sx's of sob): normal cor.s, patent prior RCA stent. nl EDP [place] Echo 08/24: 89% MPHR. no ST change, no ischemia Cardiac MRI 2013: nl LV/RV. no LVH or HCM. Event monitor (14d) 2011 (for palpitations): PSVT 26b run--no sx. NSVT brief (4 beats) tele: NSR, no bradyarrhythmia/pauses/heart block 82F h/o HTN, HLD, CAD, [place], breast cancer p/w syncope Syncope - occurred while pushing cart in store, no prodrome - suspect orthostatic hypotension, given 8 mmHg fall on standing bp here - holding home losartan-HCT--rpt orthostatics (01/10) no longer drops her bp - given lack of prodrome and pt's CV h istory/age, will monitor for arrhythmia on tele--if tele benign, plan outpt prolonged holter - no s/sx of acute ischemia here - f/u echo today to confirm normal LVEF (normal on stress echo 2016) CAD - h/o RCA stent x2 (BMS, then SAM 2003) - continue plavix, statin, ranexa (sob likely non-anginal but hx equivocal and pt tolerating so continued as outpt) HTN - sbp's often soft here, suspected orthostatic hypotension syncope - holding losartan-HCT - if bp trends up, will resume low dose ARB without thiazide chronic sob: - chronic sx with no cv substrate in past - ? occult early diast chf with filling pressures elevating only during exertion - no signs pulm htn on prior echoes and dobut echo--planned for rpt as outpt given recent increase in sob sx's - not an acute problem--defer to outpt setting (remains with no signs of overt chf here) if EF normal on today's echo, pt can be discharged from CV p.o.v., HOLD LOSARTAN -HCT, and f/u with me 1-2 wks for bp check. will arrange outpt 30 day holter monitor
[2018-01-10] MEDS: ENOXAPARIN NA (PORCINE) 40 MG/0.4 ML DISP.SYRIN SQ SCH (10:47)
[2018-01-10] MEDS: CLOPIDOGREL BISULFATE 75 MG TABLET (FP) PO SCH (10:48)
[2018-01-10] MEDS: MULTIVITAMINS (DAILY MVI) TABLET (FP) PO SCH (10:48)
[2018-01-10] MEDS: RANOLAZINE E.R. 500 MG TABLET (FP) PO SCH (10:48)
[2018-01-10] MEDS: CHOLECALCIFEROL (VITAMIN D3) 1,000 UNIT TABLET (FP) PO SCH (10:48)
[2018-01-10] MEDS: TIOTROPIUM BROMIDE 2.5 MCG (SPIRIVA) RESPIMAT INHALER IH SCH (10:49)
--- NOTE | 2018-01-10 12:01 | ECHO ---
Name: ALMA ELAM Exam:Adult Echocardiogram Study Date: 01/10/2018 08:58 AM Age: 82 yrs Reason For Study: SYNCOPE ASSESS LVF Height: 64 in Weight: 196 lb BSA: 1.9 m2 MMode/2D Measurements & Calculations IVSd: 1.0 cm Ao root diam: 2.8 cm LVIDd: 4.9 cm LA dimension: 3.9 cm LVIDs: 3.5 cm LVPWd: 0.82 cm EDV(Teich): 114.6 ml TAPSE: 2.1 cm ESV(Teich): 52.0 ml Doppler Measurements & Calculations MV E max edi: 110.1 cm/sec MR max edi: 360.9 cm/sec MV A max edi: 134.3 cm/sec MR max P.1 mmHg MV E/A: 0.82 MV dec time: 0.29 sec TR max edi: 163.1 cm/sec Med Peak E' Edi: 4.8 cm/sec TR max P.7 mmHg Med E/e': 23.0 Lat Peak E' Edi: 5.3 cm/sec Lat E/e': 20.9 Procedure A complete two-dimensional transthoracic echocardiogram was performed (2D, M-mode, Doppler and color flow Doppler). The study was technically good with many images being of high quality. Left Ventricle The left ventricle is normal in size. Left ventricular systolic function is normal. Ejection Fraction = 60- 65%. TDI reveals impaired relaxation with elevated filling pressure (E/E' > 20). No regional wall mot ion abnormalities noted. Right Ventricle The right ventricle is normal size. The right ventricular systolic function is normal. RV systolic TD I is 12 cm/s. Atria The left atrial size is normal. Right atrial size is normal. Mitral Valve There is mild mitral valve thickening. There is mild mitral annular calcification. There is no mitral regurgitation noted. Tricuspid Valve The tricuspid valve is normal in structure and function. There is mild tricuspid regurgitation. Right ventricular systolic pressure is normal. Aortic Valve The aortic valve is normal in structure and function. No aortic regurgitation is present. Pulmonic Valve The pulmonic valve is not well visualized. Great Vessels The aortic root is normal size. Pericardium/Pleura There is no pericardial effusion. Interpretation Summary The left ventricle is normal in size. Left ventricular systolic function is normal. No regional wall motion abnormalities noted. Ejection Fraction = 60-65%. TDI reveals impaired relaxation with elevated filling pressure (E/E' > 20) The right ventricular systolic function is normal. The left atrial size is normal. Right atrial size is normal. There is mild mitral valve thickening. There is mild mitral annular calcification. There is mild tricuspid regurgitation. Right ventricular systolic pressure is normal. There is no pericardial effusion. Previous study is not available for comparison Ken Cotton MD 01/10/2018 12:00 PM
[2018-01-10 14:58] VITALS: BP 118/59; PULSE 70; TEMP 97.9
--- NOTE | 2018-01-10 16:27 | DS ---
Physical Exam: SUBJECTIVE: Patient seen and examined at bedside. No overnight events. No new complaints. She states she feels much better today. She is eager to go home. Denies CP, MACK, SOB, abdominal pain, nausea or vomiting. OBJECTIVE: Vital Signs Period Temp Pulse Resp BP Sys/[place] Pulse Ox Last 24 Hr 97.6 F-98.5 F 56-73 16-18 102-129/57-77 96-98 PHYSICAL EXAM GENERAL: Awake and alert, NAD LUNGS: Breath sounds equal, clear to auscultation bilaterally, no wheezes, no crackles, no accessory muscle use. HEART: Regular rate and rhythm, S1, S2 without murmur, rub or gallop. ABDOMEN: Soft, nontender, nondistended, normoactive bowel sounds, no guarding, no rebound, no hepatosplenomegaly, no masses. EXTREMITIES: 2+ pulses, warm, well-perfused, no edema. NEUROLOGICAL: Cranial nerves II through XII grossly intact. Normal speech, gait not observed. PSYCH: Normal mood, normal affect. SKIN: Warm, dry, normal turgor, no rashes or lesions noted. LABS Laboratory Results - last 24 hr 01/10/18 01/10/18 05:30 05:30 WBC 4.8 RBC 4.15 Hgb 13.5 Hct 41.5 MCV 100.2 H MCH 32.6 MCHC 32.5 RDW 13.0 Plt Count 136 MPV 8.9 Absolute Neuts (auto) 1.7 Neutrophils % 35.5 L Lymphocytes % 48.5 H Monocytes % 12.1 H Eosinophils % 2.6 Basophils % 1.3 Nucleated RBC % 0 Sodium 142 Potassium 3.5 Chloride 107 Carbon Dioxide 28 Anion Gap 8 BUN 16 Creatinine 0.8 Creat Clearance w eGFR > 60 Random Glucose 113 H Calcium 8.4 L Phosphorus 3.5 Magnesium 2.3 HOSPITAL COURSE: 82 yo F with PMHx HTN, HLD, CAD, [place], Breast CA who presents for evaluation following syncopal episode. She was placed on observation to telemetry. She was seen by cardiology and echo and carotid doppler were done. Echo showed normal LV size and function with EF of 60%. Carotids did not show any significant stenosis. No events noted on telemetry. Orthostatic BP reveled a 8mmHg drop in BP when standing. As result Hyzaar held and will be discontinued for now as this syncope most likely secondary to orthostatic hypotension. She will continue all other medications as previously prescribed. Plan is to follow up with cardiology 1week for possible holter monitoring as outpatient. Follow up with PCP in one week as well. Patient is stable for discharge home today. Date of Admission:01/07/18 Date of Discharge: 01/10/18 Minutes to complete discharge: 42 Discharge Summary Reason For Visit: UTI/SYNCOPE Current Active Problems Syncope (Acute) UTI (urinary tract infection) (Acute) Condition: Improved - Instructions Diet, Activity, Other Instructions: You have been seen and treated for fainting spell (syncope). This was most likely a result of being dehydrated. Make sure you drink 6-8 cups of water daily.Please hold your hyzaar medication until follow up with cardiology. Increase your activity as tolerated. Resume a heart healthy diet. You need to follow up with your primary doctor and ammonia distiller in one week. You had some complaints of dizziness and hearing difficulties for which you should follow up with Dr. Piña ENT. If your experience worsening of symptoms or you develop chest pain, fever or chills please return to ER immediately. Referrals: Abhijit Lopez MD [Staff Physician] - 1 Week Magno Piña MD [Staff Physician] - 1 Week (Patient is know patient and been advised in past need for hearing aid also now complaining of symptoms of vertigo which may represent BPPV.) Disposition: HOME - Home Medications Comprehensive Discharge Medication List: Ambulatory Orders Losartan/Hydrochlorothiazide [Hyzaar 50-12.5 Tablet] 1 each PO DAILY DISCONTINUE Ubidecarenone [Coq-10] 100 mg PO DAILY 12/29/12 Ranolazine [Ranexa] 500 mg PO BID 12/30/12 Cholecalciferol (Vitamin D3) [Vitamin D3] 1,000 unit PO DAILY 06/26/16 Multivit-Min/FA/Lycopen/Lutein [Centrum Silver Tablet] 1 each PO DAILY 06/26/16 Budesonide [Budesonide ER] 9 mg IH [facility] 01/07/18 Clopidogrel Bisulfate [Plavix -] 75 mg PO DAILY 01/07/18 Melatonin 10 mg PO HS 01/07/18 Mv-Min/FA/Vit K/Lycop/Lut/Zeax [Ocuvite Eye Plus Multi Tablet] 1 each PO ASDIR 01/07/18 Rosuvastatin [Crestor -] 10 mg PO DAILY 01/07/18 Tiotropium [place] [Spiriva] 1 inh PO DAILY 01/07/18 Tramadol HCl 50 mg PO 01/08/18 Problem List - Problems (1) Syncope (2) CAD (coronary artery disease) (3) HTN (hypertension) This patient is new to me today: No Emergency Visit: Yes ED Registration Date: 01/07/18 Care time: The patient presented to the Emergency Department on the above date and was hospitalized for further evaluation of their emergent condition. Critical Care patient: No - Discharge Referral Referred to [facility] No
--- NOTE | 2018-01-10 17:09 | PN ---
Teaching Attending Note Name of Resident: Remberto Rosa ATTENDING PHYSICIAN STATEMENT I saw and evaluated the patient. I reviewed the resident's note and discussed the case with the resident. I agree with the resident's findings and plan as documented. SUBJECTIVE: Mrs Fonseca is without complaint. No cp, sob, n/v. OBJECTIVE: Gen: nad CV: rrr Pulm: ctab Abd: +bs, s/nt/nd Ext: no c/c/e ASSESSMENT AND PLAN: Ms Fonseca is a pleasant 82 year old female who came in with syncope. She was admitted under observation. She had a carotid ultrasound and ECHO which were normal. She was seen by cardiology and cleared. She was seen by PT and ambulated well. Her blood pressure medications will be stopped. She is safe for discharge home. Problem List - Problems (1) Syncope Code(s): R55 - SYNCOPE AND COLLAPSE Qualifiers: Syncope type: unspecified Qualified Code(s): R55 - Syncope and collapse (2) CAD (coronary artery disease) Code(s): I25.10 - ATHSCL HEART DISEASE OF [place] CORONARY ARTERY W/O ANG PCTRS Qualifiers: Coronary Disease-Associated Artery/Lesion type: [place] artery [place] vs. transplanted heart: [place] heart Associated angina: with stable angina Qualified Code(s): I25.118 - Atherosclerotic heart disease of [place] coronary artery with other forms of angina pectoris (3) HTN (hypertension) Code(s): I10 - ESSENTIAL (PRIMARY) HYPERTENSION Qualifiers: Hypertension type: essential hypertension Qualified Code(s): I10 - Essential (primary) hypertension
== END 2018-01-10 16:33 | disposition home or self-care (01) ==
LOC: JER 11:38 → JERBED 15:53 → J4W 21:27
PROVIDERS: ADMIT Internal Medicine; ATTEND Internal Medicine
PROC: 3E0F7GC Introduction of Other Therapeutic Substance into Respiratory Tract, Via Natural or Artificial Opening (ICD-10-PCS; principal; 2018-01-07)
PROC: 3E013GC Introduction of Other Therapeutic Substance into Subcutaneous Tissue, Percutaneous Approach (ICD-10-PCS; 2018-01-07)
DX: R55 Syncope and collapse (principal); N39.0 Urinary tract infection, site not specified; I25.119 Atherosclerotic heart disease of native coronary artery with unspecified angina pectoris; I10 Essential (primary) hypertension; Z95.5 Presence of coronary angioplasty implant and graft; I25.2 Old myocardial infarction; E78.5 Hyperlipidemia, unspecified; Z85.3 Personal history of malignant neoplasm of breast; Z85.43 Personal history of malignant neoplasm of ovary; F41.8 Other specified anxiety disorders; F32.9 Major depressive disorder, single episode, unspecified; G47.30 Sleep apnea, unspecified; K75.4 Autoimmune hepatitis; Z90.710 Acquired absence of both cervix and uterus; Z91.040 Latex allergy status
CPT/HCPCS: 36415; 70450-TC; 71045-TC-FY; 72125-TC; 80048; 80053; 81003; 81015; 82550; 83735; 84100; 84484; 85025; 87086; 93005; 93010; 93306-TC; 93880-TC; 94640; 96372; 97116-GP; 97161-GP; 99284-25; G0378; J7030

== ENCOUNTER 2019-02-26 12:39 | Inpatient (IN) | payer OTHER, MEDICARE ==
--- NOTE | 2019-02-26 13:52 | PDOC ---
History of Present Illness - General Chief Complaint: Pain Stated Complaint: BACK PAIN History Source: Patient Exam Limitations: No Limitations - History of Present Illness Initial Comments: 02/26/19 18:19 83 yo F with a hx of CAD s/p 2x stents, HLD, HTN, COPD, and chronic back pain s/ p vertebral stimulator presents to the emergency department with lower back pain that has been ongoing for 2 weeks. The pain has been chronic for [address] Tesfaye Swartz, of which she has been receiving injections , states her pain has been progressively worsening since her last injection. She states her pain is of same quality but now is unable to walk. Per the , he had difficulty assisting her with moving throughout the home which as baseline she can. For the past 2 weeks, her pain has been progressively worsening. She describes her pain as dull in nature, located in the lumbar/ gluteal region bilaterally, without radiation, worsens with ambulation, and denies the following symptoms: urinary and stool incontinence, urinary retention , paresthesia in the sacral issue, FND, fevers, SOB, nausea, vomiting, diarrhea , and abdominal pain. Allergies: NKDA Past History - Past Medical History Allergies/Adverse Reactions: Allergies Allergy/AdvReac Type Severity Reaction Status Date / Time latex Allergy Intermediate Swelling Verified 02/26/19 12:44 Home Medications: Ambulatory Orders Budesonide [Budesonide ER] 9 mg IH ASDIR 01/07/18 Clopidogrel Bisulfate [Plavix -] 75 mg PO DAILY 01/07/18 Rosuvastatin [Crestor -] 10 mg PO DAILY 01/07/18 Amlodipine Besylate 2.5 mg PO DAILY 02/27/19 Ezetimibe [Zetia] 10 mg PO DAILY 02/27/19 Famotidine [Pepcid -] 20 mg PO BID 02/27/19 Pramipexole Dihydrochloride [Mirapex -] 0.25 mg PO HS 02/28/19 Ropinirole HCl 0.5 mg PO HS 02/28/19 Miscellaneous Medical Supply [Outpatient Order] 1 each ASDIR #1 misc Lidocaine 5% Patch [Lidoderm -] 1 patch TP DAILY #7 patch 03/02/19 Oxycodone HCl 5 mg PO Q12H PRN #9 tablet MDD 2 tab 03/02/19 Prednisone See Taper PO DAILY #11 tablet 03/02/19 Anemia: No Asthma: No Cancer: Yes (LEFT BREAST CANCER,OVARIAN CANCER) Cardiac Disorders: Yes (ASHD) CVA: No COPD: Yes CHF: No Dementia: No Diabetes: No GI Disorders: Yes (GASTRITIS,HIATAL HERNIA,ACID REFLUX,COLON POLYPS) Disorders: No HTN: Yes Hypercholesterolemia: Yes Liver Disease: Yes (H/O HEPATITIS B) Seizures: No Thyroid Disease: No - Surgical History Abdominal Surgery: No Appendectomy: No Cardiac Surgery: Yes (CARDIAC STENT) Cholecystectomy: No Lung Surgery: No Neurologic Surgery: No Orthopedic Surgery: Yes (Bilateral Knees and Shoulders) - Immunization History Immunization Up to Date: Yes - Psycho Social/Smoking Cessation Hx Smoking History: Never smoked Have you smoked in the past 12 months: No Hx Alcohol Use: No Drug/Substance Use Hx: No Substance Use Type: None Hx Substance Use Treatment: No Review of Systems - Review of Systems Able to Perform ROS?: Yes Is the patient limited Ecuadorean proficient: No Constitutional: Yes: Weakness. No: Chills, Diaphoresis, Fever HEENTM: No: Eye Pain, Ear Pain, Nose Pain, Throat Pain, Mouth Pain Respiratory: No: Cough, Shortness of Breath, Hemoptysis Cardiac (ROS): No: Chest Pain, Lightheadedness, Chest Tightness ABD/GI: No: Constipated, Diarrhea, Nausea, Rectal Bleeding, Vomiting, Tarry Stools : No: Dysuria, Hematuria Musculoskeletal: Yes: Back Pain. No: Joint Pain, Neck Pain Integumentary: No: Bruising, Erythema, Rash Neurological: No: Headache, Numbness, Tingling, Tremors Psychiatric: No: Change in Appetite Endocrine: No: Unexplained Weight Loss Hematologic/Lymphatic: No: Anemia *Physical Exam - Vital Signs Last Vital Signs Temp Pulse Resp BP Pulse Ox 97.5 F L 68 18 112/76 98 02/26/19 12:41 02/26/19 12:41 02/26/19 12:41 02/26/19 12:41 02/26/19 12:41 - Physical Exam General Appearance: Yes: Nourished, Appropriately Dressed. No: Apparent Distress, Intoxicated HEENT: positive: EOMI, BAILEY, Normal Voice, Symmetrical, Pharynx Normal, Hearing Grossly Normal. negative: Pale Conjunctivae, Scleral Icterus (R), Scleral Icterus (L), Muffled/Hoarse voice, Pharyngeal Erythema, Tonsillar Exudate, Tonsillar Erythema, Nasal Congestion, Rhinorrhea, Sinus Tenderness, Excessive drooling Neck: positive: Trachea midline, Supple. negative: Tender, Lymphadenopathy (R) , Lymphadenopathy (L), Tender lateral, Tender midline Respiratory/Chest: positive: Lungs Clear, Normal Breath Sounds. negative: Chest Tender, Respiratory Distress, Accessory Muscle Use, Crackles, Rales, Rhonchi, Stridor, Wheezing Cardiovascular: positive: Regular Rhythm, Regular Rate, S1, S2. negative: Systolic Murmur Gastrointestinal/Abdominal: positive: Normal Bowel Sounds, Flat, Soft. negative : Tender, Distended, Guarding, Rebound Lymphatic: negative: Adenopathy Musculoskeletal: positive: Normal Inspection, Vertebral Tenderness (no midline tenderness noted in the lumbar, thoracic, and cervical region. The patient has tenderness in the lumbar and gluteal region bilaterally with palpation. no ecchymosis noted. ). negative: CVA Tenderness Extremity: positive: Normal Capillary Refill, Normal Inspection, Normal Range of Motion. negative: Tender Integumentary: positive: Normal Color, Dry, Warm. 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 negative: EOM Palsy, Facial Droop , Numbness, Sensory Deficit, Finger to Nose ED Treatment Course - LABORATORY CBC & Chemistry Diagram: 03/02/19 07:25 03/02/19 07:25 Medical Decision Making - Medical Decision Making 83 yo F with a hx of CAD s/p 2x stents, HLD, HTN, COPD, and chronic back pain s/ p vertebral stimulator presents to the emergency department with lower back pain that has been ongoing for 2 weeks. Initial vitals: Initial Vital Signs Temp Pulse Resp BP Pulse Ox 97.5 F L 68 18 112/76 98 02/26/19 12:41 02/26/19 12:41 02/26/19 12:41 02/26/19 12:41 02/26/19 12:41 Work up: Patient presents with acute on chronic back pain that has been progressively worsening for the past 2 weeks without fever and toxic appearance. While epidural abscess is unlikely it still remains in the differential as they can present without fever. Ddx also includes the following: epidural hematoma vs fracture of the spinal column (unlikely given no new traumas) vs lumbago vs UTI vs nephrolithiasis. AAA also in the differential diagnosis Because the patient has a stimulator vertebral and has MR conditional setting, will start with CT of the spinal column with IV contrast. Will treat pain with analgesics and obtain blood work. Laboratory Tests 02/26/19 02/26/19 02/26/19 14:13 14:51 14:51 WBC 10.0 RBC 4.00 Hgb 13.4 Hct 39.5 MCV 98.9 H MCH 33.6 MCHC 34.0 RDW 14.3 Plt Count 199 MPV 8.2 Absolute Neuts (auto) 6.4 Neutrophils % 63.8 D Lymphocytes % 22.0 D Monocytes % 13.3 H Eosinophils % 0.2 D Basophils % 0.7 Nucleated RBC % 0 Sodium 141 Potassium 4.0 Chloride 107 Carbon Dioxide 29 Anion Gap 5 L BUN 16.8 Creatinine 0.7 Est GFR (CKD-EPI)AfAm 94.18 Est GFR (CKD-EPI)NonAf 81.26 Random Glucose 109 H Calcium 8.9 Total Bilirubin 0.6 AST 21 ALT 33 Alkaline Phosphatase 64 Total Protein 6.4 Albumin 3.4 Urine Color Yellow Urine Appearance Clear Urine pH 6.0 Ur Specific [place] 1.019 Urine Protein Negative Urine Glucose (UA) Negative Urine Ketones Negative Urine Blood Negative Urine Nitrite Negative Urine Bilirubin Negative Urine Urobilinogen 0.2 Ur Leukocyte Esterase Negative UA negative for UTI and hematuria no leukocytosis no AZEEM No CT evidence of paraspinal, epidural abscess, no bony abnormalities seen, and no evidence of compression deformities. Unlikely to have cord compression given that the patient did not have neurological findings on examinations with negative red flags. Patient needs to be admitted for further work up of inability to walk. 02/26/19 18:[address] Swartz. The patient was admitted to hospitalist team without delay. EKG: sinus amy without ST elevations or depressions. Discharge - Discharge Information Problems reviewed: Yes Clinical Impression/Diagnosis: Unable to ambulate, Intractable pain Disposition: VNS/HOME HEALTH CARE - Follow up/Referral - Patient Discharge Instructions - Post Discharge Activity
[2019-02-26] MEDS ORDERED: LIDOCAINE 5% TOPICAL PATCH TP ONE (14:56)
[2019-02-26] MEDS ORDERED: LIDOCAINE 5% TOPICAL PATCH ONE ×2 (15:11→22:14)
--- NOTE | 2019-02-26 15:42 | PDOC ---
Documentation entered by Modesto Gautam SCRIBE, acting as scribe for Gracie Cummings MD. Gracie Cummings MD: This documentation has been prepared by the Dain agudelo Daniel, SCRIBE, under my direction and personally reviewed by me in its entirety. I confirm that the documentation accurately reflects all work, treatment, procedures, and medical decision making performed by me. Attending Attestation - Resident Resident Name: Silas Pineda - ED Attending Attestation I have performed the following: I have examined & evaluated the patient, The case was reviewed & discussed with the resident, I agree w/resident's findings & plan, Exceptions are as noted - HPI HPI: 02/26/19 14:46 The patient is an 83 year old female with a past medical history of CAD s/p 2 stents, chronic back pain (followed by pain mgmt, s/p spinal stimulator placed at [facility] in 2016), COPD, HTN, HLD, b/l knee replacements 20+ years ago (Dr. Joel Barber at [facility]) here today for evaluation of worsening back pain. The patient reports that she usually sees Dr. Swartz for injections for her back pain. She reports 3 recent injections, the first two having improved her pain, but reports the most recent injection 2 weeks ago cause her pain to become worse. She describes her pain as being in the bilateral lumbar gluteal region and states that it is becoming difficult to walk due to her increasing pain. Denies new focal weakness/numbness, urine or stool incontinence or retention. Patient denies headache, lightheadedness. Denies fever, chills. Denies chest pain, shortness of breath. Denies nausea, vomiting, diarrhea, abdominal pain. Allergies: latex PCP: Chandler Pedro Pain Management: Tesfaye Swartz - Physicial Exam PE: 02/26/19 14:46 GENERAL: Awake, alert, and fully oriented, in no acute distress. Very pleasant HEAD: No signs of trauma EYES: Sclera anicteric, conjunctiva clear ENT: Oropharynx clear without exudates. Moist mucosa NECK: Normal ROM, supple, no lymphadenopathy, JVD, or masses LUNGS: Breath sounds equal, clear to auscultation bilaterally. No wheezes, and no crackles HEART: Regular rate and rhythm, normal S1 and S2, no murmurs, rubs or gallops ABDOMEN: Soft, nontender, normoactive bowel sounds. No guarding, no rebound. No masses EXTREMITIES: Normal range of motion, no edema. No clubbing or cyanosis. No cords , erythema, or tenderness BACK: No midline spinal tenderness in cervical/thoracic/lumbar region. +B/l diffuse paraspinal and gluteal ttp NEUROLOGICAL: Normal speech, cranial nerves intact, \5/5 strength in all 4 extremities, normal sensation to light touch in all 4 extremities, normal cerebellar exam, normal reflexes, unsteady gait with 1 person assistance SKIN: Warm, Dry, normal turgor, no rashes or lesions noted. - Medical Decision Making 02/26/19 15:42 83-year-old female with a past medical history of chronic back pain s/p spinal stimulator 2015 (MR conditional, pt has card), b/l knee replacement >20 yrs ago (unknown MRI compatability) presents to the ED with progressive lower lumbar back pain since injection by pain management 2 weeks ago. Pt unable to walk today prompting ED visit Concern for possible post injection infection vs hematoma causing sudden progression of pain for last 2 weeks Pt's pain is improved after lidocaine and morphine, however pt still unable to walk Attempted to contact [facility] (Dr. Joel Barber) to ascertain MRI safety of pt' s knee replacements but have not heard back Will plan for MRI lumbar spine with IV contrast (under MR conditional setting) once we know if pt's knee replacements are MRI safe In the meantime, will obtain CT lumbar spine Since pt unable to ambulate when she typically is able to at baseline, anticipate admission
[2019-02-26] MEDS ORDERED: morphine CARPU-JECT 2 MG/1 ML DISP.SYRIN IVPUSH ONE (16:50)
[2019-02-26 17:12] LABS: BASO % 0.7 % (0-2.0); EOS % 0.2 % (0-4.5); HEMATOCRIT 39.5 % (32.4-45.2); HEMOGLOBIN 13.4 GM/dL (10.7-15.3); MCH 33.6 pg (25.7-33.7); MEAN CELL VOLUME 98.9 fl (80-96); MEAN PLT VOLUME 8.2 fl (7.5-11.1); MONO % 13.3 % (3.8-10.2); NEUT % 63.8 % (42.8-82.8); PLATELET COUNT 199 K/MM3 (134-434); RDW 14.3 % (11.6-15.6)
[2019-02-26] MEDS ORDERED: MORPHINE SULFATE 2 MG/ML VIAL ONE (17:13)
[2019-02-26 17:49] LABS: ALBUMIN 3.4 g/dl (3.4-5.0); BILIRUBIN,TOTAL 0.6 mg/dL (0.2-1); BLOOD UREA NITROGEN 16.8 mg/dL (7-18); CALCIUM 8.9 mg/dL (8.5-10.1); CREATININE 0.7 mg/dL (0.55-1.3); TOT PROT 6.4 g/dl (6.4-8.2)
[2019-02-26 20:30] LABS: URINE APPEARANCE CLEAR; URINE BILIRUBIN NEGATIVE (NEGATIVE); URINE COLOR YELLOW; URINE GLUCOSE (UA) NEGATIVE (NEGATIVE); URINE KETONE NEGATIVE (NEGATIVE); URINE LEUK ESTERASE NEGATIVE (NEGATIVE); URINE NITRITE NEGATIVE (NEGATIVE); URINE PROTEIN NEGATIVE (NEGATIVE); URINE UROBILINOGEN 0.2 mg/dL (0.2-1.0)
--- NOTE | 2019-02-26 21:27 | PDOC ---
*Physical Exam - Vital Signs Last Vital Signs Temp Pulse Resp BP Pulse Ox 97.5 F L 68 18 112/76 98 02/26/19 12:41 02/26/19 12:41 02/26/19 12:41 02/26/19 12:41 02/26/19 12:41 ED Treatment Course - LABORATORY CBC & Chemistry Diagram: 02/26/19 14:51 02/26/19 14:51 - ADDITIONAL ORDERS Additional order review: Laboratory Results 02/26/19 02/26/19 14:51 14:13 Sodium 141 Potassium 4.0 Chloride 107 Carbon Dioxide 29 Anion Gap 5 L BUN 16.8 Creatinine 0.7 Est GFR (CKD-EPI)AfAm 94.18 Est GFR (CKD-EPI)NonAf 81.26 Random Glucose 109 H Calcium 8.9 Total Bilirubin 0.6 AST 21 ALT 33 Alkaline Phosphatase 64 Total Protein 6.4 Albumin 3.4 Urine Color Yellow Urine Appearance Clear Urine pH 6.0 Ur Specific [place] 1.019 Urine Protein Negative Urine Glucose (UA) Negative Urine Ketones Negative Urine Blood Negative Urine Nitrite Negative Urine Bilirubin Negative Urine Urobilinogen 0.2 Ur Leukocyte Esterase Negative 02/26/19 14:51 RBC 4.00 MCV 98.9 H MCHC 34.0 RDW 14.3 MPV 8.2 Neutrophils % 63.8 D Lymphocytes % 22.0 D Monocytes % 13.3 H Eosinophils % 0.2 D Basophils % 0.7 - RADIOLOGY Radiograph Interpretation: THIS IS A PRELIMINARY REPORT FROM [facility] DATE OF SERVICE: 2019-02-26 20:01:49 EXAM: LUMBAR SPINE CT WITH CONTRAST FINDINGS: There is no evidence of abscess Multilevel bilateral facet arthropathy and multilevel marginal endplate osteophytes in the lumbar spine with grade 1 anterolisthesis of L4 on L5 likely chronic related to adjacent facet arthropathy Bony alignment is otherwise normal. The vertebral body heights and disc spaces are preserved Moderate central canal stenosis at L1-L4 secondary to posterior disc osteophyte complexes Neurostimulator leads enter the spinal canal at the T12/L1 level and extend above the limits of the scan 2 mm nonobstructing stone and small cyst in the lower pole of the right kidney 02/26/19 21:26 - Medications Given in the ED: ED Medications Discontinued Medications Generic Name Dose Route Start Last Admin Trade Name Freq PRN Reason Stop Dose Admin Lidocaine 1 patch 02/26/19 14:56 02/26/19 15:11 Lidoderm Patch - TP 02/26/19 14:57 1 patch ONCE ONE Administration Morphine Sulfate 2 mg 02/26/19 16:50 02/26/19 17:22 Morphine Injection - IVPUSH 02/26/19 16:51 2 mg ONCE ONE Administration Medical Decision Making - Medical Decision Making Pt received as sign out Pending CT lumbar spine w/ contrast -Study neg for abscess/hematoma Plan is for admission for inability to ambulate 2/2 intractable pain Pt signed out to [facility] Admitting Discharge - Discharge Information Problems reviewed: Yes Clinical Impression/Diagnosis: Unable to ambulate, Intractable pain Condition: Stable - Admission Yes - Follow up/Referral - Patient Discharge Instructions - Post Discharge Activity
--- NOTE | 2019-02-26 21:28 | PN ---
Teaching Attending Note Name of Resident: Magno Richardson ATTENDING PHYSICIAN STATEMENT I saw and evaluated the patient. I reviewed the resident's note and discussed the case with the resident. I agree with the resident's findings and plan as documented. SUBJECTIVE: Patient is an 83 year old woman with a past medical history of CAD s/p 2 stents , Chronic back pain (followed by Dr. Tesfaye Swartz. s/p spinal stimulator placed at [place] in 2016), COPD, HTN, HLD, Bilateral knee replacements 20+ years ago (Dr. Joel Barber at [facility]), Left breast cancer (s/p mastectomy) and Ovarian cancer here for evaluation of worsening back pain. The patient reports that she usually sees Dr. Swartz for injections for her back pain but states that they are not as effective as they used to be. She describes her pain as being in the bilateral lumbar gluteal region and states that it is becoming difficult to walk due to her increasing pain. Denies headache, lightheadedness, fever, chills, chest pain, shortness of breath, nausea, vomiting, diarrhea, dysuria, frequency or abdominal pain. Uses a cane and walker at home. Denies alcohol, tobacco or illicit drug use. No sick contacts or recent travels. OBJECTIVE: Alert Vital Signs Period Temp Pulse Resp BP Sys/Santacruz Pulse Ox Last 24 Hr 97.5 F 68 18 112/76 98 HEENT: No Jaundice, eye redness or discharge, PERRLA, EOMI. Normocephalic, atraumatic. External ears are normal and hearing is grossly intact. No nasal discharge. Neck: Supple, nontender. No palpable adenopathy or thyromegaly. No JVD Chest: Good effort. Clear to auscultation and percussion. Heart: Regular. No S3, rub or murmur Abdomen: Not distended, soft, nontender and no HSM. No rebound or guarding. Normal bowel sounds. Ext: Peripheral pulses intact. No leg edema. Normal rectal sphincter tone. Skin: Warm and dry. No petechiae, rash or ecchymosis. Neuro: Alert. Oriented x3. CN 2-12 grossly intact. Pain on straight leg raising of both legs. Sensation grossly intact in all four extremities and DTR are symmetric. Gait not tested for safety reasons. Psych: Appropriate mood and affect. Good insight. Current Medications Generic Name Dose Route Start Last Admin Trade Name [place] PRN Reason Stop Dose Admin Miscellaneous 1 each 02/26/19 22:00 Lidoderm Patch Removal MC [id number] [facility] Home Medications Medication Instructions Recorded Ubidecarenone [Coq-10] 100 mg PO DAILY 12/29/12 Ranolazine [Ranexa] 500 mg PO BID 12/30/12 Cholecalciferol (Vitamin D3) 1,000 unit PO DAILY 06/26/16 [Vitamin D3] Multivit-Min/FA/Lycopen/Lutein 1 each PO DAILY 06/26/16 [Centrum Silver Tablet] Budesonide [Budesonide ER] 9 mg IH ASDIR 01/07/18 Clopidogrel Bisulfate [Plavix -] 75 mg PO DAILY 01/07/18 Melatonin 10 mg PO HS 01/07/18 Mv-Min/FA/Vit K/Lycop/Lut/Zeax 1 each PO ASDIR 01/07/18 [Ocuvite Eye Plus Multi Tablet] Rosuvastatin [Crestor -] 10 mg PO DAILY 01/07/18 Tiotropium Ezel [Spiriva] 1 inh PO DAILY 01/07/18 Abnormal Lab Results 02/26/19 02/26/19 14:51 14:51 MCV 98.9 H Monocytes % 13.3 H Anion Gap 5 L Random Glucose 109 H ASSESSMENT AND PLAN: 1. Intractable low back pain/Inability to ambulate - CT scan of lumbar spine with contrast showed "There is no evidence of abscess. Multilevel bilateral facet arthropathy and multilevel marginal endplate osteophytes in the lumbar spine with grade 1 anterolisthesis of L4 on L5 likely chronic related to adjacent facet arthropathy. Bony alignment is otherwise normal. The vertebral body heights and disc spaces are preserved. Moderate central canal stenosis at L1-L4 secondary to posterior disc osteophyte complexes. Neurostimulator leads enter the spinal canal at the T12/L1 level and extend above the limits of the scan. 2 mm nonobstructing stone and small cyst in the lower pole of the right kidney". EKG shows sinus bradycardia at 59/minute and anterior infarct of undetermined age. Will get a lumbosacral MRI if approved by her orthopedic surgeon. Got IV Morphine and Lidocaine patch in the ER. Will continue Lidocine patch, give PO Oxycodone if Lidocaine patch is insufficient, use IV Morphine for breakthrough pain, give Prednisone, Protonix and provide bowel regimen. Consult Ortho and PT. Will continue comprehensive care for all of patients comorbid conditions including Duoneb PRN. 2. Obesity Counseled on the risks associated with obesity. Will provide patient all the necessary assistance, counseling and positive reinforcement to facilitate weight loss. Consult psychological operations. 3. Hypertension - Restart suitable outpatient antihypertensive drugs when clinically appropriate. Revise regimen to ensure [id number] excellent BP control and vocational counselor patient on the injurious effects of uncontrolled hypertension. Nonpharmacologic measures to control hypertension like weight loss , salt restriction and exercise discussed. Importance of adherence to treatment regimen and attainment of normotension emphasized. 4. DVT prophylaxis - Lovenox 40 mg SQ q 24 hours. 5. Advance directives - Full code
[2019-02-26] MEDS ORDERED: LIDOCAINE PATCH REMOVAL MC SCH (22:00)
[2019-02-26] MEDS: LIDOCAINE PATCH REMOVAL MC SCH (22:23)
[2019-02-26] MEDS ORDERED: ACETAMINOPHEN 325 MG TABLET (FP) PO PRN (23:34)
[2019-02-26] MEDS ORDERED: ALBUTEROL SO4 2.5/IPRATROPIUM 0.5 INH SOL 3 ML VIAL.NEB. NEB PRN (23:39)
[2019-02-27] MEDS ORDERED: oxyCODONE HCL 5 MG TABLET PO PRN (00:09)
[2019-02-27] MEDS ORDERED: ACETAMINOPHEN 325 MG TABLET (FP) PO PRN (00:09)
--- NOTE | 2019-02-27 01:10 | HP ---
CHIEF COMPLAINT: intractable back pain, inability to walk PCP: Dr. Pedro Pain Management: Dr. Tesfaye Swartz HISTORY OF PRESENT ILLNESS: Winter Fonseca is a 83 year old female with a past medical history of CAD (s/ p 2 stents), HLD, HTN, COPD, chronic back pain s/p vertebral stimulator, L breast cancer (s/p mastectomy), ovarian cancer (in remission), hiatal hernia, GERD, autoimmune hepatitis. Patient presents with 2 weeks of worsening back pain. She had been receiving epidural steroid injections with her pain management physician with the most recent on Feb 23. She noted that since that time she had been having worsening back pain and difficulty in ambulating. She normally ambulates with a cane and sometimes uses a walker. She has been having complete inability to ambulate and required assistance from her family in order to move around. She states she had some tingling in her proximal lower extremities. She denies any bowel or bladder incontinence, saddle anesthesia, numbness in the lower extremities. She denies cp, palpitations sob, abd pain, n/v/c/d, fever, chills, dysuria, hematuria, frequency, urgency, hesitancy, dizziness, lightheadedness, focal weakness, visual changes. ER course was notable for: (1) CT lumbar with multilevel bilateral facet arthropathy and multilevel endplate osteophytes. Grade 1 anterolisthesis of L4/L5. Moderate central canal stenosis at L1-L4 secondary to posterior disc osteophyte complexes. No hematoma or epidural abscess identified. 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 Allergies latex Allergy (Intermediate, Verified 02/26/19 12:44) Swelling HOME MEDICATIONS: Home Medications Medication Instructions Recorded Ubidecarenone [Coq-10] 100 mg PO DAILY 12/29/12 Ranolazine [Ranexa] 500 mg PO BID 12/30/12 Cholecalciferol (Vitamin D3) 1,000 unit PO DAILY 06/26/16 [Vitamin D3] Multivit-Min/FA/Lycopen/Lutein 1 each PO DAILY 06/26/16 [Centrum Silver Tablet] Budesonide [Budesonide ER] 9 mg IH ASDIR 01/07/18 Clopidogrel Bisulfate [Plavix -] 75 mg PO DAILY 01/07/18 Melatonin 10 mg PO HS 01/07/18 Mv-Min/FA/Vit K/Lycop/Lut/Zeax 1 each PO ASDIR 01/07/18 [Ocuvite Eye Plus Multi Tablet] Rosuvastatin [Crestor -] 10 mg PO DAILY 01/07/18 Tiotropium [place] [Spiriva] 1 inh PO DAILY 01/07/18 REVIEW OF SYSTEMS CONSTITUTIONAL: generalized weakness Absent: fever, chills, diaphoresis, malaise, loss of appetite, weight change HEENT: Absent: rhinorrhea, nasal congestion, throat pain, throat swelling, difficulty swallowing, visual changes CARDIOVASCULAR: Absent: chest pain, syncope, palpitations, irregular heart rate, lightheadedness RESPIRATORY: Absent: cough, shortness of breath, dyspnea with exertion, orthopnea, wheezing, GASTROINTESTINAL: Absent: abdominal pain, abdominal distension, nausea, vomiting, diarrhea, constipation, GENITOURINARY: Absent: dysuria, frequency, urgency, hesitancy, hematuria, flank pain, MUSCULOSKELETAL: back pain Absent: myalgia, arthralgia, joint swelling, neck pain SKIN: Absent: rash, itching, pallor HEMATOLOGIC/IMMUNOLOGIC: Absent: easy bleeding, easy bruising, lymphadenopathy, frequent infections ENDOCRINE: Absent: unexplained weight gain, unexplained weight loss, heat intolerance, cold intolerance NEUROLOGIC: bilateral lower extremity weakness, tingling of the proximal lower extremities Absent: headache, focal weakness or paresthesias, dizziness, seizure, mental status changes, bowel or bladder incontinence PSYCHIATRIC: Absent: anxiety, depression, suicidal or homicidal ideation, hallucinations. PHYSICAL EXAMINATION Vital Signs - 24 hr 02/26/19 02/26/19 12:41 22:21 Temperature 97.5 F L Pulse Rate 68 Respiratory 18 Rate Blood Pressure 112/76 O2 Sat by Pulse 98 98 Oximetry (%) GENERAL: Awake, alert, and fully oriented, in mild acute distress. HEAD: Normal with no signs of trauma. EYES: Pupils equal, round and reactive to light, extraocular movements intact, sclera anicteric, conjunctiva clear. EARS, NOSE, THROAT: Oropharynx clear without exudates. Moist mucous membranes. NECK: Normal range of motion, supple without lymphadenopathy, JVD. LUNGS: Breath sounds equal, clear to auscultation bilaterally. No wheezes, and no crackles. No accessory muscle use. HEART: Regular rate and rhythm, normal S1 and S2 without murmur, rub. ABDOMEN: Soft, nontender, not distended, normoactive bowel sounds, no guarding, no rebound, no masses. MUSCULOSKELETAL: Decreased motion at the hip secondary to pain. Positive straight leg raise. No bony deformities or tenderness. No CVA tenderness. UPPER EXTREMITIES: 2+ pulses, warm, well-perfused. No cyanosis. No clubbing. No peripheral edema. LOWER EXTREMITIES: 2+ pulses, warm, well-perfused. No calf tenderness. No peripheral edema. NEUROLOGICAL: Cranial nerves II-XII intact. 3/5 hip flexion off the bilateral lower extremities. 4/5 bilateral knee flexion/extension. 5/5 muscle strength of the bilateral distal lower extremities. 5/5 of all bilateral upper extremities. Sensation intact to gross touch throughout. Good rectal tone and no saddle anesthesia. PSYCHIATRIC: Cooperative. Good eye contact. Appropriate mood and affect. SKIN: Warm, dry, normal turgor, no rashes or lesions noted, normal capillary refill. Laboratory Results - last 24 hr 02/26/19 02/26/19 02/26/19 14:13 14:51 14:51 WBC 10.0 RBC 4.00 Hgb 13.4 Hct 39.5 MCV 98.9 H MCH 33.6 MCHC 34.0 RDW 14.3 Plt Count 199 MPV 8.2 Absolute Neuts (auto) 6.4 Neutrophils % 63.8 D Lymphocytes % 22.0 D Monocytes % 13.3 H Eosinophils % 0.2 D Basophils % 0.7 Nucleated RBC % 0 Sodium 141 Potassium 4.0 Chloride 107 Carbon Dioxide 29 Anion Gap 5 L BUN 16.8 Creatinine 0.7 Est GFR (CKD-EPI)AfAm 94.18 Est GFR (CKD-EPI)NonAf 81.26 Random Glucose 109 H Calcium 8.9 Total Bilirubin 0.6 AST 21 ALT 33 Alkaline Phosphatase 64 Total Protein 6.4 Albumin 3.4 Urine Color Yellow Urine Appearance Clear Urine pH 6.0 Ur Specific [place] 1.019 Urine Protein Negative Urine Glucose (UA) Negative Urine Ketones Negative Urine Blood Negative Urine Nitrite Negative Urine Bilirubin Negative Urine Urobilinogen 0.2 Ur Leukocyte Esterase Negative EKG--> sinus bradycardia, age indeterminate inferior infarct, no ST segment changes, QTc 425 ASSESSMENT/PLAN: Iolanda Angelucci is a 83 year old female with a past medical history of CAD (s/ p 2 stents), HLD, HTN, COPD, chronic back pain s/p vertebral stimulator, L breast cancer (s/p mastectomy), ovarian cancer (in remission), hiatal hernia, GERD, autoimmune hepatitis admitted for intractable back pain and inability to walk. Intractable Back Pain/Inability to walk - CT as above with no acute pathology - lidocaine patch - oxycodone prn for pain - can consider MRI, nerve stimulator is compatible but unknown if knee replacements are, will need to contact orthopedist to determine if compatible. Patient states she has received MRIs after the knee replacements were done - will need to contact patient's pain management doctor for further management - prednisone 40mg - protonix 40mg - bowel regimen, senna and Colace - physical therapy - orthopedics consulted Hx of CAD - continue Plavix Hx of autoimmune hepatitis - continue home budesonide HLD - continue home Crestor and Zetia HTN - amlodipine 2.5mg daily GERD - famotidine 20mg daily COPD - duoneb prn Hx of RLS - on pramipexole and ropinirole - will likely need outpatient neurology she is on two dopamine agonists, will need optimization of medications DVT PPx - Lovenox 40 mg subq once daily FEN - no standing fluids - continue to monitor electrolytes and replete as necessary - sodium/fat controlled diet Dispo - admit to med-surg - has been med-reced Family Medical History Family Hx Cancer: Mother (pancreatic cancer), Father (stomach cancer) Visit type - Emergency Visit Emergency Visit: Yes ED Registration Date: 02/26/19 Care time: The patient presented to the Emergency Department on the above date and was hospitalized for further evaluation of their emergent condition. - New Patient This patient is new to me today: Yes Date on this admission: 02/27/19 - Critical Care Critical Care patient: No
[2019-02-27] MEDS ORDERED: BUDESONIDE 9 MG IH SCH (04:00)
--- NOTE | 2019-02-27 09:57 | EKG ---
Test Reason : Blood Pressure : / mmHG Vent. Rate : 059 BPM Atrial Rate : 059 BPM P-R Int : 144 ms QRS Dur : 078 ms QT Int : 430 ms P-R-T Axes : 053 -12 056 degrees QTc Int : 425 ms SINUS BRADYCARDIA WHEN COMPARED WITH ECG OF 08-JAN-2018 09:55, NO SIGNIFICANT CHANGE WAS FOUND Confirmed by RONALDO NICHOLE MD ([id number]) on 02/27/2019 9:57:05 AM Referred By: Confirmed By:RONALDO NICHOLE MD
--- NOTE | 2019-02-27 09:58 | PN ---
Physical Exam: SUBJECTIVE: Patient seen and examined. Pt. tearful about pain and states that she just wants to be able to walk again. Pt. states that she saw Dr. García ~1 year ago and was prescribed a medication for her pain that made her delirious and changed her personality. Pt. stopped taking the medication after 2 weeks despite following up with Dr. García and being reassured. Pt.'s delirium resolved. Pt. requests not to be seen by Dr. García again. Pt. states that the pain has been getting progressively worse. Pt. denies any current constipation but does endorse over active bladder. Pt. denies any numbness to the groin. Pt. denies any numbness in the extremities but endorses pain despite having recent epidural shot on Feb 23. Pt. endorses that she has had MRIs since having her knees replaced. Pt. refused Prednisone. OBJECTIVE: Vital Signs Period Temp Pulse Resp BP Sys/Santacruz Pulse Ox Last 24 Hr 97.5 F-98.7 F 62-89 17-18 103-128/60-81 96-100 GENERAL: The patient is awake, alert, and fully oriented, in mod. distress 2/2 pain. HEAD: Normal with no signs of trauma. EYES: Extraocular movements intact, sclera anicteric, conjunctiva clear. No ptosis. ENT: Ears normal, nares patent, oropharynx clear without exudates, moist mucous membranes. NECK: Trachea midline, full range of motion, supple. LUNGS: Breath sounds equal, clear to auscultation bilaterally, no wheezes, no crackles, no accessory muscle use. HEART: Regular rate and rhythm, S1, S2 without murmur, rub or gallop. EXTREMITIES: 2+ dorsal pedal pulses, warm, no calf tenderness, well-perfused, no edema. 5/5 muscle strength throughout. Straight leg test positive bilaterally with R. worse than the left. Pt. experienced pain at ~70 degreed flexion on right and ~80 degrees flexion on left. NEUROLOGICAL: Cranial nerves II-XII intact. 3/5 hip flexion off the bilateral lower extremities. 4/5 bilateral knee flexion/extension. 5/5 muscle strength of the bilateral distal lower extremities. 5/5 of all bilateral upper extremities. Sensation intact to gross touch throughout. PSYCH: Normal mood, normal affect. SKIN: Warm, dry, normal turgor, no rashes or lesions noted Laboratory Results - last 24 hr 02/26/19 02/26/19 02/26/19 14:13 14:51 14:51 WBC 10.0 RBC 4.00 Hgb 13.4 Hct 39.5 MCV 98.9 H MCH 33.6 MCHC 34.0 RDW 14.3 Plt Count 199 MPV 8.2 Absolute Neuts (auto) 6.4 Neutrophils % 63.8 D Lymphocytes % 22.0 D Monocytes % 13.3 H Eosinophils % 0.2 D Basophils % 0.7 Nucleated RBC % 0 Sodium 141 Potassium 4.0 Chloride 107 Carbon Dioxide 29 Anion Gap 5 L BUN 16.8 Creatinine 0.7 Est GFR (CKD-EPI)AfAm 94.18 Est GFR (CKD-EPI)NonAf 81.26 Random Glucose 109 H Calcium 8.9 Total Bilirubin 0.6 AST 21 ALT 33 Alkaline Phosphatase 64 Total Protein 6.4 Albumin 3.4 Urine Color Yellow Urine Appearance Clear Urine pH 6.0 Ur Specific [place] 1.019 Urine Protein Negative Urine Glucose (UA) Negative Urine Ketones Negative Urine Blood Negative Urine Nitrite Negative Urine Bilirubin Negative Urine Urobilinogen 0.2 Ur Leukocyte Esterase Negative Active Medications Home Medications Medication Instructions Recorded Ranolazine [Ranexa] 1,000 mg PO BID 12/30/12 Cholecalciferol (Vitamin D3) 1,000 unit PO DAILY 06/26/16 [Vitamin D3] Budesonide [Budesonide ER] 9 mg IH ASDIR 01/07/18 Clopidogrel Bisulfate [Plavix -] 75 mg PO DAILY 01/07/18 Rosuvastatin [Crestor -] 10 mg PO DAILY 01/07/18 Amlodipine Besylate 2.5 mg PO DAILY 02/27/19 Ezetimibe [Zetia] 10 mg PO DAILY 02/27/19 Famotidine [Pepcid -] 20 mg PO BID 02/27/19 Oxybutynin Chloride 5 mg PO DAILY 02/27/19 Pramipexole Dihydrochloride 0.25 mg PO HS 02/27/19 [Mirapex -] Ropinirole HCl [Requip -] 0.25 mg PO HS 02/27/19 Current Medications Acetaminophen (Tylenol -) 650 mg PO Q4H PRN PRN Reason: PAIN LEVEL 1-5 Albuterol/Ipratropium (Duoneb -) 1 amp NEB RQID PRN PRN Reason: SHORTNESS OF BREATH Amlodipine Besylate (Norvasc -) 2.5 mg PO DAILY [facility] Cholecalciferol (Vitamin D3 -) 1,000 unit PO DAILY [facility] Clopidogrel Bisulfate (Plavix -) 75 mg PO DAILY [facility] Docusate Sodium (Colace -) 100 mg PO DAILY [facility] Ezetimibe (Zetia -) 10 mg PO DAILY [facility] Enoxaparin Sodium (Lovenox -) 40 mg SQ DAILY [facility] Famotidine (Pepcid -) 20 mg PO BID [facility] Lidocaine (Lidoderm Patch -) 1 patch TP DAILY [facility] Miscellaneous (Lidoderm Patch Removal) 1 each MC DAILY@2200 [facility] Last Admin: 02/26/19 22:23 Dose: 1 each Non-Formulary Medication (Budesonide [Budesonide Er]) 9 mg PO DAILY [facility] Oxycodone HCl (Roxicodone -) 5 mg PO Q6H PRN PRN Reason: PAIN LEVEL 6-10 Pantoprazole Sodium (Protonix -) 40 mg PO DAILY [facility] Pramipexole Dihydrochloride (Mirapex -) 0.25 mg PO HS [facility] Prednisone (Deltasone -) 40 mg PO DAILY [facility] Ranolazine (Ranexa -) 1,000 mg PO BID [facility] Ropinirole HCl (Requip -) 0.25 mg PO HS [facility] Rosuvastatin Calcium (Crestor -) 10 mg PO HS [facility] Senna (Senna -) 1 tab PO HS [facility] ASSESSMENT/PLAN: Winter Fonseca is a 83 year old female with a past medical history of CAD (s/ p 2 stents), HLD, HTN, COPD, chronic back pain s/p vertebral stimulator, L breast cancer (s/p mastectomy), ovarian cancer (in remission), hiatal hernia, GERD, autoimmune hepatitis admitted for intractable back pain and inability to walk. Intractable Back Pain/Inability to walk - CT as above with no acute pathology - lidocaine patch - oxycodone prn for pain - can consider MRI, nerve stimulator is compatible but unknown if knee replacements are, will need to contact orthopedist to determine if compatible. Patient states she has received MRIs after the knee replacements were done - will need to contact patient's pain management doctor for further management - prednisone 40mg (Pt. refused) - protonix 40mg - bowel regimen, senna and Colace - physical therapy - orthopedics consulted - Pain management and Neurosurgery consulted (Dr. Maravilla and Dr. Espinoza) Hx of CAD - continue Plavix Hx of autoimmune hepatitis - continue home budesonide HLD - continue home Crestor and Zetia HTN - amlodipine 2.5mg daily GERD - famotidine 20mg daily COPD - duoneb prn Hx of RLS - on pramipexole and ropinirole - will likely need outpatient neurology she is on two dopamine agonists, will need optimization of medications! DVT PPx - Lovenox 40 mg subq once daily FEN - no standing fluids - continue to monitor electrolytes and replete as necessary - sodium/fat controlled diet Dispo - admit to med-surg - has been med-reced Visit type - Emergency Visit Emergency Visit: Yes ED Registration Date: 02/26/19 Care time: The patient presented to the Emergency Department on the above date and was hospitalized for further evaluation of their emergent condition. - New Patient This patient is new to me today: Yes Date on this admission: 02/27/19 - Critical Care Critical Care patient: No - Discharge Referral Referred to [facility] Med P.C.: No ATTENDING PHYSICIAN STATEMENT I saw and evaluated the patient. I reviewed the resident's note and discussed the case with the resident. I agree with the resident's findings and plan as documented. SUBJECTIVE: OBJECTIVE: ASSESSMENT AND PLAN:
[2019-02-27] MEDS ORDERED: BUDESONIDE 9 MG PO SCH (10:00)
[2019-02-27] MEDS: LIDOCAINE 5% TOPICAL PATCH TP SCH (10:27)
[2019-02-27] MEDS: DOCUSATE SODIUM 100 MG CAPSULE (FP) PO SCH (10:27)
[2019-02-27] MEDS: RANOLAZINE E.R. 500 MG TABLET (FP) PO SCH ×2 (10:28→22:02)
[2019-02-27] MEDS: PANTOPRAZOLE 40 MG TABLET PO SCH (10:28)
[2019-02-27] MEDS: amLODIPine BESYLATE 2.5 MG TABLET (FP) PO SCH (10:28)
[2019-02-27] MEDS: CLOPIDOGREL BISULFATE 75 MG TABLET (FP) PO SCH (10:28)
[2019-02-27] MEDS: CHOLECALCIFEROL (VIT D3) 1,000 UNIT (25 MCG) TABLET PO SCH (10:28)
[2019-02-27] MEDS: EZETIMIBE 10 MG TABLET (FP) PO SCH (10:28)
[2019-02-27] MEDS: FAMOTIDINE 20 MG TABLET PO SCH ×2 (10:28→22:02)
[2019-02-27] MEDS: ENOXAPARIN NA (PORCINE) 40 MG/0.4 ML DISP.SYRIN SQ SCH (10:28)
[2019-02-27] MEDS: predniSONE 20 MG TABLET (UD) PO SCH (10:35)
[2019-02-27 12:06] LABS: BASO % 0.3 % (0-2.0); EOS % 0.3 % (0-4.5); HEMATOCRIT 42.2 % (32.4-45.2); HEMOGLOBIN 14.1 GM/dL (10.7-15.3); LYMPH % 19.4 % (8-40); MCH 32.9 pg (25.7-33.7); MCHC 33.4 g/dl (32.0-36.0); MEAN CELL VOLUME 98.5 fl (80-96); MEAN PLT VOLUME 8.3 fl (7.5-11.1); MONO % 13.6 % (3.8-10.2); NEUT % 66.4 % (42.8-82.8); PLATELET COUNT 201 K/MM3 (134-434); RBC 4.29 M/mm3 (3.60-5.2); RDW 14.4 % (11.6-15.6); WHITE BLOOD COUNT 9.7 K/mm3 (4.0-10.0)
[2019-02-27 12:21] LABS: BLOOD UREA NITROGEN 16.7 mg/dL (7-18); CALCIUM 8.9 mg/dL (8.5-10.1); CREATININE 0.7 mg/dL (0.55-1.3); MAGNESIUM 2.5 mg/dL (1.8-2.4); POTASSIUM 3.8 mmol/L (3.5-5.1)
[2019-02-27 17:52] VITALS: BMI 31.6
--- NOTE | 2019-02-27 18:56 | PN ---
Teaching Attending Note Name of Resident: Rodrigo Howe ATTENDING PHYSICIAN STATEMENT I saw and evaluated the patient. I reviewed the resident's note and discussed the case with the resident. I agree with the resident's findings and plan as documented. SUBJECTIVE: Patient is a 83yo female , presented for having progressive weakness and back pain . Patient perry s a back stimulator and had an epidural x 2 by her pain mangement doctor at [place]. Temperature 98.4 F 02/27/19 16:00 Pulse Rate 70 02/27/19 16:00 Respiratory Rate 20 02/27/19 16:00 Blood Pressure 113/62 02/27/19 16:00 O2 Sat by Pulse Oximetry (%) 98 02/27/19 16:00 GENERAL: The patient is awake, alert, and fully oriented, in mod. HEAD: Normal with no signs of trauma. EYES: Extraocular movements intact, sclera anicteric, conjunctiva clear. ENT: Ears normal, oropharynx clear without exudates, moist mucous membranes. NECK: Trachea midline, full range of motion, supple. LUNGS: Breath sounds equal, clear to auscultation bilaterally, no wheezes, no crackles, no accessory muscle use. HEART: Regular rate and rhythm, S1, S2 without murmur, rub or gallop. EXTREMITIES: 2+ dorsal pedal pulses, warm, no calf tenderness, well-perfused, no edema. 5/5 muscle strength throughout. Straight leg test positive bilaterally with R. worse than the left. Pt. experienced pain at ~70 degreed flexion on right and ~80 degrees flexion on left. NEUROLOGICAL: Cranial nerves II-XII intact. 3/5 hip flexion off the bilateral lower extremities. 4/5 bilateral knee flexion/extension. 5/5 muscle strength of the bilateral distal lower extremities. 5/5 of all bilateral upper extremities. Sensation intact to gross touch throughout. PSYCH: Normal mood, normal affect. SKIN: Warm, dry, normal turgor, no rashes or lesions noted CBCD WBC 9.7 K/mm3 (4.0-10.0) 02/27/19 11:35 RBC 4.29 M/mm3 (3.60-5.2) 02/27/19 11:35 Hgb 14.1 GM/dL (10.7-15.3) 02/27/19 11:35 Hct 42.2 % (32.4-45.2) 02/27/19 11:35 MCV 98.5 fl (80-96) H 02/27/19 11:35 MCHC 33.4 g/dl (32.0-36.0) 02/27/19 11:35 RDW 14.4 % (11.6-15.6) 02/27/19 11:35 Plt Count 201 K/MM3 (134-434) 02/27/19 11:35 MPV 8.3 fl (7.5-11.1) 02/27/19 11:35 CMP Sodium 143 mmol/L (136-145) 02/27/19 11:35 Potassium 3.8 mmol/L (3.5-5.1) 02/27/19 11:35 Chloride 108 mmol/L (98-107) H 02/27/19 11:35 Carbon Dioxide 30 mmol/L (21-32) 02/27/19 11:35 Anion Gap 5 MMOL/L (8-16) L 02/27/19 11:35 BUN 16.7 mg/dL (7-18) 02/27/19 11:35 Creatinine 0.7 mg/dL (0.55-1.3) 02/27/19 11:35 Random Glucose 92 mg/dL (74-106) 02/27/19 11:35 Calcium 8.9 mg/dL (8.5-10.1) 02/27/19 11:35 Total Bilirubin 0.6 mg/dL (0.2-1) 02/26/19 14:51 AST 21 U/L (15-37) 02/26/19 14:51 ALT 33 U/L (13-61) 02/26/19 14:51 Alkaline Phosphatase 64 U/L (45-117) 02/26/19 14:51 Total Protein 6.4 g/dl (6.4-8.2) 02/26/19 14:51 Albumin 3.4 g/dl (3.4-5.0) 02/26/19 14:51 Current Medications Generic Name Dose Route Start Last Admin Trade Name Freq PRN Reason Stop Dose Admin Acetaminophen 650 mg 02/27/19 00:09 Tylenol - PO Q4H PRN PAIN LEVEL 1-5 Albuterol/Ipratropium 1 amp 02/26/19 23:39 Duoneb - NEB RQID PRN SHORTNESS OF BREATH Amlodipine Besylate 2.5 mg 02/27/19 10:00 02/27/19 10:28 Norvasc - PO 2.5 mg DAILY [facility] Administration Cholecalciferol 1,000 unit 02/27/19 10:00 02/27/19 10:28 Vitamin D3 - PO 1,000 unit DAILY [facility] Administration Clopidogrel Bisulfate 75 mg 02/27/19 10:00 02/27/19 10:28 Plavix - PO 75 mg DAILY [facility] Administration Docusate Sodium 100 mg 02/27/19 10:00 02/27/19 10:27 Colace - PO 100 mg DAILY [facility] Administration Ezetimibe 10 mg 02/27/19 10:00 02/27/19 10:28 Zetia - PO 10 mg DAILY [facility] Administration Enoxaparin Sodium 40 mg 02/27/19 10:00 02/27/19 10:28 Lovenox - SQ 40 mg DAILY [facility] Administration Famotidine 20 mg 02/27/19 10:00 02/27/19 10:28 Pepcid - PO 20 mg BID [facility] Administration Lidocaine 1 patch 02/27/19 10:00 02/27/19 10:27 Lidoderm Patch - TP 1 patch DAILY [facility] Administration Miscellaneous 1 each 02/26/19 22:00 02/26/19 22:23 Lidoderm Patch Removal MC 1 each DAILY@2200 [facility] Administration Morphine Sulfate 2 mg 02/27/19 18:23 Morphine Sulfate IVPUSH Q4H PRN PAIN LEVEL 7 - 10 Non-Formulary Medication 9 mg 02/27/19 10:00 Budesonide [Budesonide Er] PO DAILY [facility] Pantoprazole Sodium 40 mg 02/27/19 10:00 02/27/19 10:28 Protonix - PO 40 mg DAILY [facility] Administration Pramipexole Dihydrochloride 0.25 mg 02/27/19 22:00 Mirapex - PO HS [facility] Prednisone 40 mg 02/27/19 10:00 02/27/19 10:35 Deltasone - PO Not Given DAILY [facility] Ranolazine 1,000 mg 02/27/19 10:00 02/27/19 10:28 Ranexa - PO 1,000 mg BID [facility] Administration Ropinirole HCl 0.25 mg 02/27/19 22:00 Requip - PO HS [facility] Rosuvastatin Calcium 10 mg 02/27/19 22:00 Crestor - PO HS [facility] Senna 1 tab 02/27/19 22:00 Senna - PO HS [facility] Home Medications Medication Instructions Recorded Ranolazine [Ranexa] 1,000 mg PO BID 12/30/12 Cholecalciferol (Vitamin D3) 1,000 unit PO DAILY 06/26/16 [Vitamin D3] Budesonide [Budesonide ER] 9 mg IH ASDIR 01/07/18 Clopidogrel Bisulfate [Plavix -] 75 mg PO DAILY 01/07/18 Rosuvastatin [Crestor -] 10 mg PO DAILY 01/07/18 Amlodipine Besylate 2.5 mg PO DAILY 02/27/19 Ezetimibe [Zetia] 10 mg PO DAILY 02/27/19 Famotidine [Pepcid -] 20 mg PO BID 02/27/19 Oxybutynin Chloride 5 mg PO DAILY 02/27/19 Pramipexole Dihydrochloride 0.25 mg PO HS 02/27/19 [Mirapex -] Ropinirole HCl [Requip -] 0.25 mg PO HS 02/27/19 ASSESSMENT/PLAN: Winter Fonseca is a 83 year old female with a past medical history of CAD (s/ p 2 stents), HLD, HTN, COPD, chronic back pain s/p vertebral stimulator, L breast cancer (s/p mastectomy), ovarian cancer (in remission), hiatal hernia, GERD, autoimmune hepatitis admitted for intractable back pain and inability to walk. #Intractable Back Pain/Inability to walk; dr barber and tacho james for consult, CT ordered, and reviewed #Hx of CAD: continue Plavix #Hx of autoimmune hepatitis: continue home budesonide #HLD: continue home Crestor and Zetia #HTN: amlodipine 2.5mg daily #GERD: famotidine 20mg daily #COPD: duoneb prn #Hx of RLS: on pramipexole and ropinirole DVT PPx; Lovenox 40 mg subq once daily
[2019-02-27] MEDS: MORPHINE SULFATE 2 MG/ML VIAL IVPUSH PRN (22:01)
[2019-02-27] MEDS: PRAMIPEXOLE DIHYDROCHLORIDE 0.25 MG TABLET PO SCH ×2 (22:02→22:20)
[2019-02-27] MEDS: ROSUVASTATIN CA 10 MG TABLET (FP) PO SCH (22:02)
[2019-02-27] MEDS: SENNOSIDES 8.6MG TABLET (FP) PO SCH (22:03)
[2019-02-27] MEDS: rOPINIRole HCL 0.25 MG TABLET PO SCH (22:03)
[2019-02-27] MEDS: LIDOCAINE PATCH REMOVAL MC SCH (22:03)
[2019-02-28 08:34] LABS: HEMOGLOBIN 13.4 GM/dL (10.7-15.3); MCH 34.1 pg (25.7-33.7); MCHC 34.4 g/dl (32.0-36.0); MEAN CELL VOLUME 99.1 fl (80-96); MEAN PLT VOLUME 8.3 fl (7.5-11.1); PLATELET COUNT 168 K/MM3 (134-434); RBC 3.93 M/mm3 (3.60-5.2); RDW 14.3 % (11.6-15.6); WHITE BLOOD COUNT 8.3 K/mm3 (4.0-10.0)
[2019-02-28 08:43] LABS: INR 1.08 (0.83-1.09); PROTHROMBIN TIME (PATIENT) 12.8 SEC (9.7-13.0)
[2019-02-28 08:57] LABS: CALCIUM 8.9 mg/dL (8.5-10.1); CREATININE 0.7 mg/dL (0.55-1.3); POTASSIUM 3.6 mmol/L (3.5-5.1)
[2019-02-28] MEDS ORDERED: PT OWN MED DRAWER 7, Y5N ONE (10:04)
[2019-02-28] MEDS: LIDOCAINE 5% TOPICAL PATCH TP SCH (10:11)
[2019-02-28] MEDS: ENOXAPARIN NA (PORCINE) 40 MG/0.4 ML DISP.SYRIN SQ SCH (10:12)
[2019-02-28] MEDS: RANOLAZINE E.R. 500 MG TABLET (FP) PO SCH ×2 (10:13→21:53)
[2019-02-28] MEDS: EZETIMIBE 10 MG TABLET (FP) PO SCH (10:13)
[2019-02-28] MEDS: PANTOPRAZOLE 40 MG TABLET PO SCH ×2 (10:14→10:29)
[2019-02-28] MEDS: predniSONE 20 MG TABLET (UD) PO SCH ×2 (10:14→10:28)
[2019-02-28] MEDS: DOCUSATE SODIUM 100 MG CAPSULE (FP) PO SCH (10:14)
[2019-02-28] MEDS: amLODIPine BESYLATE 2.5 MG TABLET (FP) PO SCH (10:14)
[2019-02-28] MEDS: CLOPIDOGREL BISULFATE 75 MG TABLET (FP) PO SCH (10:15)
[2019-02-28] MEDS: CHOLECALCIFEROL (VIT D3) 1,000 UNIT (25 MCG) TABLET PO SCH (10:15)
[2019-02-28] MEDS: FAMOTIDINE 20 MG TABLET PO SCH ×2 (10:16→21:55)
--- NOTE | 2019-02-28 14:43 | PN ---
Physical Exam: SUBJECTIVE: Patient seen and examined at bedside. Overnight there were no acute events. She rates her back pain as 6/10. Otherwise she has no other complaints. No numbness or tingling this AM. OBJECTIVE: Vital Signs Temp Pulse Resp BP Pulse Ox 98.5 F 80 18 107/63 98 02/28/19 14:30 02/28/19 14:30 02/28/19 14:30 02/28/19 14:30 02/27/19 21:00 GENERAL: AOx3, in no acute distress, resting comfortably in bed. HEAD: NCAT EYES: CATARINA, EOMI, conjunctiva clear. ENT: Ears normal, nares patent, oropharynx clear without exudates. Moist mucous membranes. NECK: Normal range of motion, supple without lymphadenopathy, JVD, or masses. LUNGS: CTAB. No wheezes, and no crackles. No accessory muscle use. HEART: RRR s1 s2 ABDOMEN: Soft, BS present in all 4 quadrants, non-distended, no JVD, MUSCULOSKELETAL: No bony deformities or tenderness. No CVA tenderness. UPPER EXTREMITIES: 2+ pulses, warm, well-perfused. No cyanosis. No clubbing. No peripheral edema. LOWER EXTREMITIES: 2+ pulses, warm, well-perfused. No calf tenderness. No peripheral edema. NEUROLOGICAL: No focal deficits. Cranial nerves II-XII intact. Normal speech. Gait not appreciated. PSYCHIATRIC: Cooperative. Good eye contact. Appropriate mood and affect. SKIN: Vertical surgical scar in lumbar area. Warm, dry, normal turgor, no rashes or lesions noted, normal capillary refill. Laboratory Results - last 24 hr 02/28/19 02/28/19 02/28/19 08:05 08:05 08:05 WBC 8.3 RBC 3.93 Hgb 13.4 Hct 39.0 MCV 99.1 H MCH 34.1 H MCHC 34.4 RDW 14.3 Plt Count 168 MPV 8.3 PT with INR 12.80 INR 1.08 Sodium 140 Potassium 3.6 Chloride 107 Carbon Dioxide 27 Anion Gap 6 L BUN 24.0 H Creatinine 0.7 Est GFR (CKD-EPI)AfAm 94.18 Est GFR (CKD-EPI)NonAf 81.26 Random Glucose 100 Calcium 8.9 Active Medications Acetaminophen (Tylenol -) 650 mg PO Q4H PRN PRN Reason: PAIN LEVEL 1-5 Albuterol/Ipratropium (Duoneb -) 1 amp NEB RQID PRN PRN Reason: SHORTNESS OF BREATH Amlodipine Besylate (Norvasc -) 2.5 mg PO DAILY [facility] Last Admin: 02/28/19 10:14 Dose: 2.5 mg Cholecalciferol (Vitamin D3 -) 1,000 unit PO DAILY [facility] Last Admin: 02/28/19 10:15 Dose: 1,000 unit Clopidogrel Bisulfate (Plavix -) 75 mg PO DAILY [facility] Last Admin: 02/28/19 10:15 Dose: 75 mg Docusate Sodium (Colace -) 100 mg PO DAILY [facility] Last Admin: 02/28/19 10:14 Dose: 100 mg Ezetimibe (Zetia -) 10 mg PO DAILY [facility] Last Admin: 02/28/19 10:13 Dose: 10 mg Enoxaparin Sodium (Lovenox -) 40 mg SQ DAILY [facility] Last Admin: 02/28/19 10:12 Dose: 40 mg Famotidine (Pepcid -) 20 mg PO BID [facility] Last Admin: 02/28/19 10:16 Dose: 20 mg Lidocaine (Lidoderm Patch -) 1 patch TP DAILY [facility] Last Admin: 02/28/19 10:11 Dose: 1 patch Miscellaneous (Lidoderm Patch Removal) 1 each MC DAILY@2200 [facility] Last Admin: 02/27/19 22:03 Dose: 1 each Morphine Sulfate (Morphine Sulfate) 2 mg IVPUSH Q4H PRN PRN Reason: PAIN LEVEL 7 - 10 Last Admin: 02/27/19 22:01 Dose: 2 mg Non-Formulary Medication (Budesonide [Budesonide Er]) 9 mg PO DAILY [facility] Pantoprazole Sodium (Protonix -) 40 mg PO DAILY [facility] Last Admin: 02/28/19 10:29 Dose: Not Given Pramipexole Dihydrochloride (Mirapex -) 0.25 mg PO HS [facility] Last Admin: 02/27/19 22:20 Dose: Not Given Prednisone (Deltasone -) 40 mg PO DAILY [facility] Last Admin: 02/28/19 10:28 Dose: Not Given Ranolazine (Ranexa -) 1,000 mg PO BID [facility] Last Admin: 02/28/19 10:13 Dose: 1,000 mg Ropinirole HCl (Requip -) 0.25 mg PO [facility] Last Admin: 02/27/19 22:03 Dose: 0.25 mg Rosuvastatin Calcium (Crestor -) 10 mg PO [facility] Last Admin: 02/27/19 22:02 Dose: 10 mg Senna (Senna -) 1 tab PO [facility] Last Admin: 02/27/19 22:03 Dose: 1 tab ASSESSMENT/PLAN: 83 y/o female PMH HTN, HLD, CAD (s/p 2 stents), COPD, chronic back pain s/p vertebral stimulator, LEFT breast cancer (s/p mastectomy), ovarian cancer (in remission), hiatal hernia, GERD, autoimmune hepatitis admitted for intractable back pain and inability to walk. She is now stable and pain is moderately controlled. # Intractable Back Pain/Inability to walk - CT NEG - Lidocaine patch - oxycodone prn for pain - Neurosurg and ortho consulted - prednisone 40mg - bowel regimen, senna and Colace - physical therapy # CAD - Plavix # Autoimmune hepatitis - continue home budesonide # HLD - continue home Crestor and Zetia # HTN - amlodipine 2.5mg daily # GERD - famotidine 20mg daily # COPD - Duoneb prn # RLS - on pramipexole and ropinirole - will likely need outpatient neurology she is on two dopamine agonists, will need optimization of medications # DVT PPx - Lovenox 40 mg subq once daily # FEN - no standing fluids - continue to monitor electrolytes and replete as necessary - sodium/fat controlled diet # Dispo - med-surg Visit type - Emergency Visit Emergency Visit: No - New Patient This patient is new to me today: No - Critical Care Critical Care patient: No ATTENDING PHYSICIAN STATEMENT I saw and evaluated the patient. I reviewed the resident's note and discussed the case with the resident. I agree with the resident's findings and plan as documented. SUBJECTIVE: OBJECTIVE: ASSESSMENT AND PLAN:
--- NOTE | 2019-02-28 15:28 | CONSULT ---
Consult - History of Present Illness History of Present Illness: 83-year-old female complains of lower back pain which began a few days ago with a specific injury or trauma. She has a long history of lower back pain and has received epidural cortisone injections in the past which she has had mixed results from. She states when she came to the ER a few days ago she could barely tolerate the pain and cannot walk but today is feeling much better. She was able to walk with help using a cane. - History Source History Provided By: Patient Limitations to Obtaining History: No Limitations - Past Medical History Cardio/Vascular: Yes: CAD, HTN. No: AFIB, CHF Pulmonary: Yes: Sleep Apnea (on CPAP at home) ...: No Psych: Yes: Anxiety, Depression - Past Surgical History Past Surgical History: Yes: Hysterectomy, Joint Replacement (b/l knees), Mastectomy - Alcohol/Substance Use Hx Alcohol Use: No - Smoking History Smoking history: Never smoked Have you smoked in the past 12 months: No Home Medications - Allergies Allergies/Adverse Reactions: Allergies Allergy/AdvReac Type Severity Reaction Status Date / Time latex Allergy Intermediate Swelling Verified 02/26/19 12:44 - Home Medications Home Medications: Ambulatory Orders Ranolazine [Ranexa] 1,000 mg PO BID 12/30/12 Cholecalciferol (Vitamin D3) [Vitamin D3] 1,000 unit PO DAILY 06/26/16 Budesonide [Budesonide ER] 9 mg IH ASDIR 01/07/18 Clopidogrel Bisulfate [Plavix -] 75 mg PO DAILY 01/07/18 Rosuvastatin [Crestor -] 10 mg PO DAILY 01/07/18 Amlodipine Besylate 2.5 mg PO DAILY 02/27/19 Ezetimibe [Zetia] 10 mg PO DAILY 02/27/19 Famotidine [Pepcid -] 20 mg PO BID 02/27/19 Multivitamin [One-Daily Multi-Vitamin] 1 tablet PO 02/27/19 Pramipexole Dihydrochloride [Mirapex -] 0.25 mg PO HS 02/28/19 Ropinirole HCl 0.5 mg PO HS 02/28/19 Review of Systems - Review of Systems Constitutional: reports: No Symptoms Eyes: reports: No Symptoms HENT: reports: No Symptoms Neck: reports: No Symptoms Cardiovascular: reports: No Symptoms Respiratory: reports: No Symptoms Gastrointestinal: reports: No Symptoms Genitourinary: reports: No Symptoms Breasts: reports: No Symptoms Reported Musculoskeletal: reports: Back Pain Neurological: reports: No Symptoms Endocrine: reports: No Symptoms Hematology/Lymphatic: reports: No Symptoms Psychiatric: reports: No Symptoms Physical Exam Vital Signs: Vital Signs Temperature 98.5 F 02/28/19 14:30 Pulse Rate 80 02/28/19 14:30 Respiratory Rate 18 02/28/19 14:30 Blood Pressure 107/63 02/28/19 14:30 O2 Sat by Pulse Oximetry (%) 97 02/28/19 09:00 Constitutional: Yes: Well Nourished, No Distress, Calm Musculoskeletal: Yes: Other (lower back: No midline tenderness. She has mild diffuse tenderness of the paraspinal muscles along the lumbar spine. She does have pain with straight leg test on the left. No pain with straight leg test on the right. Good strength of the bilateral lower extremities and sensation intact throughout.) Labs: CBC, BMP 02/28/19 08:05 02/28/19 08:05 Imaging - Results Cat Scan: Report Reviewed, Image Reviewed Assessment/Plan #1 lower back pain I have discussed today's findings and treatment options with the patient. She is already seeing pain management regarding her lower back as an outpatient. She states she is scheduled to have an injection on but is thinking about canceling it. She states she is feeling much better for a few days ago and is able to walk with assistance and a cane. she is concerned about doing surgery for her lower back. I recommended consultation with neurosurgery regarding an injection. No orthopedic intervention indicated at this time.
--- NOTE | 2019-02-28 19:48 | PN ---
Teaching Attending Note Name of Resident: Dimitri Martins ATTENDING PHYSICIAN STATEMENT I saw and evaluated the patient. I reviewed the resident's note and discussed the case with the resident. I agree with the resident's findings and plan as documented. SUBJECTIVE: Patient is feeling better but unable to ambulate still due to her lower back pain due to stenosis. at bedside Vital Signs Temperature 98.5 F 02/28/19 14:30 Pulse Rate 80 02/28/19 14:30 Respiratory Rate 18 02/28/19 14:30 Blood Pressure 107/63 02/28/19 14:30 O2 Sat by Pulse Oximetry (%) 97 02/28/19 09:00 GENERAL: The patient is awake, alert, and fully oriented, in mod. HEAD: Normal with no signs of trauma. EYES: Extraocular movements intact, sclera anicteric, conjunctiva clear. ENT: Ears normal, oropharynx clear without exudates, moist mucous membranes. NECK: Trachea midline, full range of motion, supple. LUNGS: Breath sounds equal, clear to auscultation bilaterally, no wheezes, no crackles, no accessory muscle use. HEART: Regular rate and rhythm, S1, S2 without murmur, rub or gallop. EXTREMITIES: 2+ dorsal pedal pulses, warm, no calf tenderness, well-perfused, no edema. 5/5 muscle strength throughout. Straight leg test positive bilaterally with R. worse than the left. NEUROLOGICAL: Cranial nerves II-XII intact. 5/5 muscle strength 5/5 LES, 5/5 of all bilateral upper extremities. Sensation intact to gross touch throughout. PSYCH: Normal mood, normal affect. SKIN: Warm, dry, normal turgor, no rashes or lesions noted CBCD WBC 8.3 K/mm3 (4.0-10.0) 02/28/19 08:05 RBC 3.93 M/mm3 (3.60-5.2) 02/28/19 08:05 Hgb 13.4 GM/dL (10.7-15.3) 02/28/19 08:05 Hct 39.0 % (32.4-45.2) 02/28/19 08:05 MCV 99.1 fl (80-96) H 02/28/19 08:05 MCHC 34.4 g/dl (32.0-36.0) 02/28/19 08:05 RDW 14.3 % (11.6-15.6) 02/28/19 08:05 Plt Count 168 K/MM3 (134-434) 02/28/19 08:05 MPV 8.3 fl (7.5-11.1) 02/28/19 08:05 CMP Sodium 140 mmol/L (136-145) 02/28/19 08:05 Potassium 3.6 mmol/L (3.5-5.1) 02/28/19 08:05 Chloride 107 mmol/L (98-107) 02/28/19 08:05 Carbon Dioxide 27 mmol/L (21-32) 02/28/19 08:05 Anion Gap 6 MMOL/L (8-16) L 02/28/19 08:05 BUN 24.0 mg/dL (7-18) H 02/28/19 08:05 Creatinine 0.7 mg/dL (0.55-1.3) 02/28/19 08:05 Random Glucose 100 mg/dL (74-106) 02/28/19 08:05 Calcium 8.9 mg/dL (8.5-10.1) 02/28/19 08:05 Total Bilirubin 0.6 mg/dL (0.2-1) 02/26/19 14:51 AST 21 U/L (15-37) 02/26/19 14:51 ALT 33 U/L (13-61) 02/26/19 14:51 Alkaline Phosphatase 64 U/L (45-117) 02/26/19 14:51 Total Protein 6.4 g/dl (6.4-8.2) 02/26/19 14:51 Albumin 3.4 g/dl (3.4-5.0) 02/26/19 14:51 Home Medications Medication Instructions Recorded Ranolazine [Ranexa] 1,000 mg PO BID 12/30/12 Cholecalciferol (Vitamin D3) 1,000 unit PO DAILY 06/26/16 [Vitamin D3] Budesonide [Budesonide ER] 9 mg IH ASDIR 01/07/18 Clopidogrel Bisulfate [Plavix -] 75 mg PO DAILY 01/07/18 Rosuvastatin [Crestor -] 10 mg PO DAILY 01/07/18 Amlodipine Besylate 2.5 mg PO DAILY 02/27/19 Ezetimibe [Zetia] 10 mg PO DAILY 02/27/19 Famotidine [Pepcid -] 20 mg PO BID 02/27/19 Oxybutynin Chloride 5 mg PO DAILY 02/27/19 Pramipexole Dihydrochloride 0.25 mg PO HS 02/27/19 [Mirapex -] Ropinirole HCl [Requip -] 0.25 mg PO HS 02/27/19 Current Medications Generic Name Dose Route Start Last Admin Trade Name Freq PRN Reason Stop Dose Admin Acetaminophen 650 mg 02/27/19 00:09 Tylenol - PO Q4H PRN PAIN LEVEL 1-5 Albuterol/Ipratropium 1 amp 02/26/19 23:39 Duoneb - NEB RQID PRN SHORTNESS OF BREATH Amlodipine Besylate 2.5 mg 02/27/19 10:00 02/28/19 10:14 Norvasc - PO 2.5 mg DAILY [facility] Administration Cholecalciferol 1,000 unit 02/27/19 10:00 02/28/19 10:15 Vitamin D3 - PO 1,000 unit DAILY [facility] Administration Clopidogrel Bisulfate 75 mg 02/27/19 10:00 02/28/19 10:15 Plavix - PO 75 mg DAILY [facility] Administration Docusate Sodium 100 mg 02/27/19 10:00 02/28/19 10:14 Colace - PO 100 mg DAILY [facility] Administration Ezetimibe 10 mg 02/27/19 10:00 02/28/19 10:13 Zetia - PO 10 mg DAILY [facility] Administration Enoxaparin Sodium 40 mg 02/27/19 10:00 02/28/19 10:12 Lovenox - SQ 40 mg DAILY [facility] Administration Famotidine 20 mg 02/27/19 10:00 02/28/19 10:16 Pepcid - PO 20 mg BID [facility] Administration Lidocaine 1 patch 02/27/19 10:00 02/28/19 10:11 Lidoderm Patch - TP 1 patch DAILY [facility] Administration Miscellaneous 1 each 02/26/19 22:00 02/27/19 22:03 Lidoderm Patch Removal MC 1 each DAILY@2200 [facility] Administration Morphine Sulfate 2 mg 02/27/19 18:23 02/27/19 22:01 Morphine Sulfate IVPUSH 2 mg Q4H PRN Administration PAIN LEVEL 7 - 10 Non-Formulary Medication 9 mg 02/27/19 10:00 Budesonide [Budesonide Er] PO DAILY [facility] Pantoprazole Sodium 40 mg 02/27/19 10:00 02/28/19 10:29 Protonix - PO Not Given DAILY [facility] Pramipexole Dihydrochloride 0.25 mg 02/27/19 22:00 02/27/19 22:20 Mirapex - PO Not Given HS [facility] Prednisone 40 mg 02/27/19 10:00 02/28/19 10:28 Deltasone - PO Not Given DAILY [facility] Ranolazine 1,000 mg 02/27/19 10:00 02/28/19 10:13 Ranexa - PO 1,000 mg BID [facility] Ropinirole HCl 0.25 mg 02/27/19 22:00 02/27/19 22:03 Requip - PO 0.25 mg HS [facility] Administration Rosuvastatin Calcium 10 mg 02/27/19 22:00 02/27/19 22:02 Crestor - PO 10 mg HS [facility] Administration Senna 1 tab 02/27/19 22:00 02/27/19 22:03 Senna - PO 1 tab HS [facility] Administration Home Medications Medication Instructions Recorded Ranolazine [Ranexa] 1,000 mg PO BID 12/30/12 Cholecalciferol (Vitamin D3) 1,000 unit PO DAILY 06/26/16 [Vitamin D3] Budesonide [Budesonide ER] 9 mg IH ASDIR 01/07/18 Clopidogrel Bisulfate [Plavix -] 75 mg PO DAILY 01/07/18 Rosuvastatin [Crestor -] 10 mg PO DAILY 01/07/18 Amlodipine Besylate 2.5 mg PO DAILY 02/27/19 Ezetimibe [Zetia] 10 mg PO DAILY 02/27/19 Famotidine [Pepcid -] 20 mg PO BID 02/27/19 Multivitamin [One-Daily 1 tablet PO 02/27/19 Multi-Vitamin] Pramipexole Dihydrochloride 0.25 mg PO HS 02/28/19 [Mirapex -] Ropinirole HCl 0.5 mg PO HS 02/28/19 ASSESSMENT/PLAN: Winter Fonseca is a 83 year old female with a past medical history of CAD (s/ p 2 stents), HLD, HTN, COPD, chronic back pain s/p vertebral stimulator, L breast cancer (s/p mastectomy), ovarian cancer (in remission), hiatal hernia, GERD, autoimmune hepatitis admitted for intractable back pain and inability to walk. #Intractable Back Pain/Inability to walk; dr iniguez and tacho james for consult, CT ordered, and reviewed discussed with dr iniguez will see the patient , patient has a stimulator that is not compatibale with the MRI machine would like to order CT myelogram, please follow up with dr Iniguez #Hx of CAD: continue Plavix #Hx of autoimmune hepatitis: continue home budesonide #HLD: continue home Crestor and Zetia #HTN: amlodipine 2.5mg daily #GERD: famotidine 20mg daily #COPD: duoneb prn #Hx of RLS: on pramipexole and ropinirole DVT PPx; Lovenox 40 mg subq once daily CT Myelogram as per Dr. iniguez's will arrange it himself, please f/u on that
[2019-02-28] MEDS: rOPINIRole HCL 0.25 MG TABLET PO SCH (21:53)
[2019-02-28] MEDS: LIDOCAINE PATCH REMOVAL MC SCH (21:53)
[2019-02-28] MEDS: ROSUVASTATIN CA 10 MG TABLET (FP) PO SCH (21:53)
[2019-02-28] MEDS: SENNOSIDES 8.6MG TABLET (FP) PO SCH (21:54)
[2019-02-28] MEDS: PRAMIPEXOLE DIHYDROCHLORIDE 0.25 MG TABLET PO SCH (22:01)
[2019-02-28] MEDS: MORPHINE SULFATE 2 MG/ML VIAL IVPUSH PRN (23:02)
[2019-03-01 07:49] LABS: HEMOGLOBIN 14.8 GM/dL (10.7-15.3); MCHC 34.5 g/dl (32.0-36.0); MEAN CELL VOLUME 98.6 fl (80-96); MEAN PLT VOLUME 8.4 fl (7.5-11.1); PLATELET COUNT 203 K/MM3 (134-434); RBC 4.36 M/mm3 (3.60-5.2); RDW 14.7 % (11.6-15.6); WHITE BLOOD COUNT 8.5 K/mm3 (4.0-10.0)
[2019-03-01 08:16] LABS: ALBUMIN 3.2 g/dl (3.4-5.0); BILIRUBIN,TOTAL 0.7 mg/dL (0.2-1); BLOOD UREA NITROGEN 14.6 mg/dL (7-18); CALCIUM 9.1 mg/dL (8.5-10.1); CREATININE 0.8 mg/dL (0.55-1.3); POTASSIUM 3.9 mmol/L (3.5-5.1); TOT PROT 6.9 g/dl (6.4-8.2)
[2019-03-01] MEDS: EZETIMIBE 10 MG TABLET (FP) PO SCH (10:07)
[2019-03-01] MEDS: ENOXAPARIN NA (PORCINE) 40 MG/0.4 ML DISP.SYRIN SQ SCH ×2 (10:08→11:59)
[2019-03-01] MEDS: PANTOPRAZOLE 40 MG TABLET PO SCH (10:09)
[2019-03-01] MEDS: CHOLECALCIFEROL (VIT D3) 1,000 UNIT (25 MCG) TABLET PO SCH (10:09)
[2019-03-01] MEDS: predniSONE 20 MG TABLET (UD) PO SCH ×2 (10:10→10:27)
[2019-03-01] MEDS: DOCUSATE SODIUM 100 MG CAPSULE (FP) PO SCH (10:10)
[2019-03-01] MEDS: amLODIPine BESYLATE 2.5 MG TABLET (FP) PO SCH (10:11)
[2019-03-01] MEDS: FAMOTIDINE 20 MG TABLET PO SCH ×2 (10:11→21:28)
[2019-03-01] MEDS: RANOLAZINE E.R. 500 MG TABLET (FP) PO SCH ×2 (10:13→21:28)
[2019-03-01] MEDS: LIDOCAINE 5% TOPICAL PATCH TP SCH (10:16)
[2019-03-01] MEDS: MORPHINE SULFATE 2 MG/ML VIAL IVPUSH PRN ×2 (11:30→21:32)
[2019-03-01] MEDS: CLOPIDOGREL BISULFATE 75 MG TABLET (FP) PO SCH (11:59)
--- NOTE | 2019-03-01 14:38 | CONSULT ---
Consult - text type - Consultation Consultation Note: NEUROSURGERY CONSULTATION Winter Fonseca is an 83 year old female with a history of low back pain for several years. She has had extensive efforts at conservative management including [facility]. She had a spinal cord stimulator placed 4 years ago at [facility]. Unfortunately, despite all of these efforts, she has continuing pain. She was recently admitted and CT demonstrates marked multilevel degenerative changes. She is unable to have MRI due to the spinal cord stimulator. I agree with plans for CT Myelography once her Plavix has been held. I discussed the potential role of surgical intervention with the patient and her spouse and we will again speak about potential options once the imaging is complete. All questions were answered.
--- NOTE | 2019-03-01 17:57 | PN ---
Physical Exam: SUBJECTIVE: Patient seen and examined at bedside. Overnight there were no acute events. She rates her back pain as 6/10. Otherwise she has no other complaints. No numbness or tingling this AM. OBJECTIVE: Vital Signs Temp Pulse Resp BP Pulse Ox 99.2 F 71 18 135/64 96 03/01/19 20:07 03/01/19 20:07 03/01/19 20:07 03/01/19 20:07 03/01/19 20:48 GENERAL: AOx3, in no acute distress, resting comfortably in bed. HEAD: NCAT EYES: CATARINA, EOMI, conjunctiva clear. ENT: Ears normal, nares patent, oropharynx clear without exudates. Moist mucous membranes. NECK: Normal range of motion, supple without lymphadenopathy, JVD, or masses. LUNGS: CTAB. No wheezes, and no crackles. No accessory muscle use. HEART: RRR s1 s2 ABDOMEN: Soft, BS present in all 4 quadrants, non-distended, no JVD, MUSCULOSKELETAL: No bony deformities or tenderness. No CVA tenderness. UPPER EXTREMITIES: 2+ pulses, warm, well-perfused. No cyanosis. No clubbing. No peripheral edema. LOWER EXTREMITIES: 2+ pulses, warm, well-perfused. No calf tenderness. No peripheral edema. NEUROLOGICAL: No focal deficits. Cranial nerves II-XII intact. Normal speech. Gait not appreciated. PSYCHIATRIC: Cooperative. Good eye contact. Appropriate mood and affect. SKIN: Vertical surgical scar in lumbar area. Warm, dry, normal turgor, no rashes or lesions noted, normal capillary refill. Laboratory Results - last 24 hr 03/01/19 03/01/19 07:15 07:15 WBC 8.5 RBC 4.36 Hgb 14.8 Hct 43.0 MCV 98.6 H MCH 34.0 H MCHC 34.5 RDW 14.7 Plt Count 203 D MPV 8.4 Sodium 142 Potassium 3.9 Chloride 107 Carbon Dioxide 28 Anion Gap 6 L BUN 14.6 Creatinine 0.8 Est GFR (CKD-EPI)AfAm 80.14 Est GFR (CKD-EPI)NonAf 69.14 Random Glucose 109 H Calcium 9.1 Total Bilirubin 0.7 AST 17 ALT 27 Alkaline Phosphatase 71 Total Protein 6.9 Albumin 3.2 L Active Medications Acetaminophen (Tylenol -) 650 mg PO Q4H PRN PRN Reason: PAIN LEVEL 1-5 Albuterol/Ipratropium (Duoneb -) 1 amp NEB RQID PRN PRN Reason: SHORTNESS OF BREATH Amlodipine Besylate (Norvasc -) 2.5 mg PO DAILY [facility] Last Admin: 03/01/19 10:11 Dose: 2.5 mg Cholecalciferol (Vitamin D3 -) 1,000 unit PO DAILY [facility] Last Admin: 03/01/19 10:09 Dose: 1,000 unit Clopidogrel Bisulfate (Plavix -) 75 mg PO DAILY [facility] Last Admin: 03/01/19 11:59 Dose: Not Given Docusate Sodium (Colace -) 100 mg PO DAILY [facility] Last Admin: 03/01/19 10:10 Dose: 100 mg Ezetimibe (Zetia -) 10 mg PO DAILY [facility] Last Admin: 03/01/19 10:07 Dose: 10 mg Enoxaparin Sodium (Lovenox -) 40 mg SQ DAILY [facility] Last Admin: 03/01/19 11:59 Dose: Not Given Famotidine (Pepcid -) 20 mg PO BID [facility] Last Admin: 03/01/19 21:28 Dose: 20 mg Gabapentin (Neurontin -) 100 mg PO BID [facility] Last Admin: 03/01/19 21:51 Dose: Not Given Lidocaine (Lidoderm Patch -) 1 patch TP DAILY [facility] Last Admin: 03/01/19 10:16 Dose: 1 patch Miscellaneous (Lidoderm Patch Removal) 1 each MC DAILY@2200 [facility] Last Admin: 03/01/19 21:28 Dose: 1 each Morphine Sulfate (Morphine Sulfate) 2 mg IVPUSH Q4H PRN PRN Reason: PAIN LEVEL 7 - 10 Last Admin: 03/01/19 21:32 Dose: 2 mg Non-Formulary Medication (Budesonide [Budesonide Er]) 9 mg PO DAILY [facility] Pantoprazole Sodium (Protonix -) 40 mg PO DAILY [facility] Last Admin: 03/01/19 10:09 Dose: 40 mg Pramipexole Dihydrochloride (Mirapex -) 0.25 mg PO [facility] Last Admin: 03/01/19 21:25 Dose: Not Given Prednisone (Deltasone -) 40 mg PO DAILY [facility] Last Admin: 03/01/19 10:27 Dose: 40 mg Ranolazine (Ranexa -) 1,000 mg PO BID [facility] Last Admin: 03/01/19 21:28 Dose: 1,000 mg Ropinirole HCl (Requip -) 0.25 mg PO [facility] Last Admin: 03/01/19 21: Dose: 0.25 mg Rosuvastatin Calcium (Crestor -) 10 mg PO [facility] Last Admin: 03/01/19 21:28 Dose: 10 mg Senna (Senna -) 1 tab PO [facility] Last Admin: 03/01/19 21: Dose: 1 tab ASSESSMENT/PLAN: 83 y/o female PMH HTN, HLD, CAD (s/p 2 stents), COPD, chronic back pain s/p vertebral stimulator, LEFT breast cancer (s/p mastectomy), ovarian cancer (in remission), hiatal hernia, GERD, autoimmune hepatitis admitted for intractable back pain and inability to walk. She is now stable and pain is moderately controlled. # Intractable Back Pain/Inability to walk - Pt has implated stimulator and cannot get MRI - Rx for CT myelogram faxed to radiology today. Attempting to schedule an appointment for patient. Will need to hold Plavix for 5 days prior. - Lidocaine patch - oxycodone prn for pain - Neurosurg and ortho consulted - prednisone 40mg - bowel regimen, senna and Colace - physical therapy # HTN - amlodipine 2.5mg daily # DVT PPx - Lovenox 40 mg subq once daily # FEN - PO - Continue to monitor electrolytes - Sodium/fat controlled diet # Dispo - med-surg - Plan for DC to SNF Dimitri Martins MD Visit type - Emergency Visit Emergency Visit: No - New Patient This patient is new to me today: No - Critical Care Critical Care patient: No ATTENDING PHYSICIAN STATEMENT I saw and evaluated the patient. I reviewed the resident's note and discussed the case with the resident. I agree with the resident's findings and plan as documented. SUBJECTIVE: OBJECTIVE: ASSESSMENT AND PLAN:
--- NOTE | 2019-03-01 19:04 | PN ---
Teaching Attending Note Name of Resident: Dimitri Martins ATTENDING PHYSICIAN STATEMENT I saw and evaluated the patient. I reviewed the resident's note and discussed the case with the resident. I agree with the resident's findings and plan as documented. SUBJECTIVE: No fever or chills. No MACK . has pain in lower back with radiation to buttocks. no weakness, but decreased ability to walk due to pain. no urinary incontinence or retention . No fecal incontinence OBJECTIVE: NAD, awake, tearful Lungs: CTAB CV: RRR, 3/6 SM at RUSB. Ext : No edema on LE. Neuro of LE: strength 5/5 in hip flexion and knee flexion /extension , ankle dorsiflexion/extension. Reflexes 1+ knee jerk. nl sensation to light touch ASSESSMENT AND PLAN: 83 y/o lady h/o chronic back pain, s/p stimulator, CAD, s/p stents, COPD, HTN , HLP, L breast cancer s/p mastectomy, ovarian cancer, hiatal hernia, GERD, autoimmune hepatitis and other medical problems who presented with worsening chronic lower back pain. 1- Lower back pain: CT reviewed. Facet joint arthropathy. - Can't do MRI. - CT myelogram needs antiplatelet to be held x 5 days. case was d/w Dr. castanon by team, OK to be done as out pt - start neurontin - cont lidocaine patch and oxy for now. - team scheduled CT myelo as out pt. - cont prednisone 2- HTN: cont norvasc DVT prophylaxis. lovenox PT patietn is interested in rehab. SW was updated
[2019-03-01] MEDS: PRAMIPEXOLE DIHYDROCHLORIDE 0.25 MG TABLET PO SCH (21:25)
[2019-03-01] MEDS: rOPINIRole HCL 0.25 MG TABLET PO SCH (21:27)
[2019-03-01] MEDS: SENNOSIDES 8.6MG TABLET (FP) PO SCH (21:27)
[2019-03-01] MEDS: GABAPENTIN 100 MG CAPSULE PO SCH ×2 (21:27→21:51)
[2019-03-01] MEDS: LIDOCAINE PATCH REMOVAL MC SCH (21:28)
[2019-03-01] MEDS: ROSUVASTATIN CA 10 MG TABLET (FP) PO SCH (21:28)
[2019-03-02] MEDS: MORPHINE SULFATE 2 MG/ML VIAL IVPUSH PRN (01:30)
[2019-03-02 08:13] LABS: HEMATOCRIT 42.9 % (32.4-45.2); HEMOGLOBIN 14.5 GM/dL (10.7-15.3); MCH 33.5 pg (25.7-33.7); MCHC 33.8 g/dl (32.0-36.0); MEAN CELL VOLUME 99.1 fl (80-96); MEAN PLT VOLUME 8.5 fl (7.5-11.1); PLATELET COUNT 213 K/MM3 (134-434); RBC 4.32 M/mm3 (3.60-5.2); RDW 14.1 % (11.6-15.6); WHITE BLOOD COUNT 11.8 K/mm3 (4.0-10.0)
[2019-03-02] MEDS ORDERED: MAGNESIUM HYDROX 2400MG/30ML ORAL SUSPENSION 30 ML CUP PO PRN (08:23)
[2019-03-02 08:59] LABS: ALBUMIN 3.3 g/dl (3.4-5.0); BILIRUBIN,TOTAL 0.5 mg/dL (0.2-1); BLOOD UREA NITROGEN 23.1 mg/dL (7-18); CALCIUM 9.3 mg/dL (8.5-10.1); CREATININE 0.8 mg/dL (0.55-1.3); POTASSIUM 3.8 mmol/L (3.5-5.1); TOT PROT 6.9 g/dl (6.4-8.2)
[2019-03-02] MEDS: ENOXAPARIN NA (PORCINE) 40 MG/0.4 ML DISP.SYRIN SQ SCH (09:26)
[2019-03-02] MEDS: CHOLECALCIFEROL (VIT D3) 1,000 UNIT (25 MCG) TABLET PO SCH (09:33)
[2019-03-02] MEDS: amLODIPine BESYLATE 2.5 MG TABLET (FP) PO SCH (09:33)
[2019-03-02] MEDS: DOCUSATE SODIUM 100 MG CAPSULE (FP) PO SCH (09:34)
[2019-03-02] MEDS: predniSONE 20 MG TABLET (UD) PO SCH (09:34)
[2019-03-02] MEDS: EZETIMIBE 10 MG TABLET (FP) PO SCH (09:34)
[2019-03-02] MEDS: PANTOPRAZOLE 40 MG TABLET PO SCH (09:34)
[2019-03-02] MEDS: LIDOCAINE 5% TOPICAL PATCH TP SCH (09:35)
[2019-03-02] MEDS: FAMOTIDINE 20 MG TABLET PO SCH (09:35)
[2019-03-02] MEDS: CLOPIDOGREL BISULFATE 75 MG TABLET (FP) PO SCH (09:36)
[2019-03-02] MEDS: RANOLAZINE E.R. 500 MG TABLET (FP) PO SCH (09:36)
[2019-03-02] MEDS ORDERED: POLYETHYLENE GLYCOL 3350 119 GM BTL PO SCH (10:00)
[2019-03-02] MEDS ORDERED: SODIUM PHOSPHATE/NA BIPHOS 133 ML ENEMA PR ONE (14:30)
[2019-03-02 14:33] VITALS: BP 122/64; PULSE 66; TEMP 98.4
--- NOTE | 2019-03-02 14:55 | PN ---
Teaching Attending Note Name of Resident: Dimitri Martins ATTENDING PHYSICIAN STATEMENT I saw and evaluated the patient. I reviewed the resident's note and discussed the case with the resident. I agree with the resident's findings and plan as documented. SUBJECTIVE: pain in lower back. no fever or chills. no urinary incontinence. has constipation x 2 days . no numbness tingling or weakness in LEs. has pain in L leg OBJECTIVE: NAD, awake, tearful Lungs: CTAB CV: RRR, 3/6 SM at RUSB. Ext: No edema on LE. tenderness of the L calf. neg Hufman's sign. Neuro of LE: strength 5/5 in hip flexion and knee flexion /extension , ankle dorsiflexion/extension. Reflexes 1+ knee jerk. nl sensation to light touch. ASSESSMENT AND PLAN: 83 y/o lady h/o chronic back pain, s/p stimulator, CAD, s/p stents, COPD, HTN , HLP, L breast cancer s/p mastectomy, ovarian cancer, hiatal hernia, GERD, autoimmune hepatitis and other medical problems who presented with worsening chronic lower back pain. 1- Exacerbation of lower back pain: - declined neurontin. will dc. - cont to hold plavix ( day 2 ) for CT myelogram . team is trying to schedule test - cont lidocaine patch and oxy for now. - cont prednisone . decrease dose for am 2- HTN: cont norvasc. 3- obtain US of LLE due to calf pain DVT prophylaxis. lovenox dispo : dc is pending placement to rehab
--- NOTE | 2019-03-02 17:03 | DS ---
Physical Exam: SUBJECTIVE: Patient seen and examined at bedside. There were no acute events overnight. This AM she offers no new complaints. OBJECTIVE: Vital Signs Period Temp Pulse Resp BP Sys/Santacruz Pulse Ox Last 24 Hr 98.2 F-99.2 F 61-74 18-18 111-135/64-72 95-96 PHYSICAL EXAM GENERAL: AOx3, in no acute distress, resting comfortably in bed. HEAD: NCAT EYES: ACTARINA, EOMI, conjunctiva clear. ENT: Ears normal, nares patent, oropharynx clear without exudates. Moist mucous membranes. NECK: Normal range of motion, supple without lymphadenopathy, JVD, or masses. LUNGS: CTAB. No wheezes, and no crackles. No accessory muscle use. HEART: RRR s1 s2 ABDOMEN: Soft, BS present in all 4 quadrants, non-distended, no JVD, MUSCULOSKELETAL: No bony deformities or tenderness. No CVA tenderness. UPPER EXTREMITIES: 2+ pulses, warm, well-perfused. No cyanosis. No clubbing. No peripheral edema. LOWER EXTREMITIES: 2+ pulses, warm, well-perfused. No calf tenderness. No peripheral edema. NEUROLOGICAL: No focal deficits. Cranial nerves II-XII intact. Normal speech. Gait not appreciated. PSYCHIATRIC: Cooperative. Good eye contact. Appropriate mood and affect. SKIN: Vertical surgical scar in lumbar area. Warm, dry, normal turgor, no rashes or lesions noted, normal capillary refill. LABS 03/02/19 03/02/19 07:25 07:25 WBC 11.8 H RBC 4.32 Hgb 14.5 Hct 42.9 MCV 99.1 H MCH 33.5 MCHC 33.8 RDW 14.1 Plt Count 213 MPV 8.5 Sodium 141 Potassium 3.8 Chloride 108 H Carbon Dioxide 25 Anion Gap 8 BUN 23.1 H Creatinine 0.8 Est GFR (CKD-EPI)AfAm 80.14 Est GFR (CKD-EPI)NonAf 69.14 Random Glucose 110 H Calcium 9.3 Total Bilirubin 0.5 AST 15 ALT 28 Alkaline Phosphatase 71 Total Protein 6.9 Albumin 3.3 L HOSPITAL COURSE: Date of Admission:02/26/19 83 y/o female PMH HTN, HLD, CAD (s/p 2 stents), COPD, chronic back pain s/p vertebral stimulator, LEFT breast cancer (s/p mastectomy), ovarian cancer (in remission), hiatal hernia, GERD, autoimmune hepatitis admitted for intractable back pain and inability to walk. She is now stable and pain is moderately controlled. Pt has an implated stimulator and cannot get MRI. She has been seen by neurosurgery whom rec myelogram; to be done by IR. She is dc to have CT myelogram and will hold Plavix for 5 days prior. Till then pain covered by lidocaine patch, prednisone, along with bowel regimen (senna and Colace). She will participate in physical therapy; dc to home with [facility]. Date of Discharge: 03/02/19 Minutes to complete discharge: 40 Discharge Summary Problems reviewed: Yes Reason For Visit: HYPERTENSION UNABLE TO WALK - Instructions Diet, Activity, Other Instructions: YOUR VISIT You came to the hospital because you were experiencing back pain. You were admitted to the hospital for care of this problem. While here you were seen by a neurologist and a neurosurgeon. You are now stable and may continue your care at a fpc facility. MEDICATIONS Please continue to take your medications as prescribed. STOP TAKING PLAVIX UNTIL YOUR CT MYELOGRAM Since you were receiving steroid medications in the hospital, you will need to continue this at home with a tapered dose (30 tablets) as follows: March 03, 2019 prednisone 30 mg by mouth March 04, 2019 prednisone 30 mg by mouth March 05, 2019 prednisone 20 mg by mouth March 06, 2019 prednisone 20 mg by mouth March 07, 2019 prednisone 10 mg by mouth then stop ADDITIONAL CARE Please make an appointment to see your primary care provider, Dr. Pedro, 1 week from today. Please make an appointment to see a neurologist in 1 week. A referral has to Dr. Martin has been provided. Please make an appointment to see a neurologist in 1 week. A referral has to Dr. Zimmerman has been provided. You have an appointment for a CT myelogram at [facility]. The department of radiology will call you with the specific date. *It is important you hold your Plavix 7 days before this test* Do not take other similar drugs. Do not take aspirin. Do not take Advil or Motrin. Sarahi Moreno will be in contact with you. If you would like to be in touch , the department can be reached at . ADDITIONAL INFORMATION Please call [phone] or come directly to the emergency department if you experience unusual headache, vision change, shortness of breath, chest pain, numbness, tingling, loss of alertness/awareness, loss of function, unusual bleeding or any alarming symptoms. Referrals: Chandler Pedro MD [Primary Care Provider] - 1 Week Jairo Espinoza MD, FA[facility] [Staff Physician] - Rodrigo Martin MD [Staff Physician] - Disposition: [facility]NS/HOME HEALTH CARE - Home Medications Comprehensive Discharge Medication List: Ambulatory Orders Budesonide [Budesonide ER] 9 mg IH ASDIR 01/07/18 Clopidogrel Bisulfate [Plavix -] 75 mg PO DAILY 01/07/18 Rosuvastatin [Crestor -] 10 mg PO DAILY 01/07/18 Amlodipine Besylate 2.5 mg PO DAILY 02/27/19 Ezetimibe [Zetia] 10 mg PO DAILY 02/27/19 Famotidine [Pepcid -] 20 mg PO BID 02/27/19 Pramipexole Dihydrochloride [Mirapex -] 0.25 mg PO HS 02/28/19 Ropinirole HCl 0.5 mg PO HS 02/28/19 Miscellaneous Medical Supply [Outpatient Order] 1 each ASDIR #1 misc Lidocaine 5% Patch [Lidoderm -] 1 patch TP DAILY #7 patch 03/02/19 Oxycodone HCl 5 mg PO Q12H PRN #9 tablet MDD 2 tab 03/02/19 Prednisone See Taper PO DAILY #11 tablet 03/02/19 This patient is new to me today: No Emergency Visit: No Critical Care patient: No - Discharge Referral Referred to [facility] No ATTENDING PHYSICIAN STATEMENT I saw and evaluated the patient. I reviewed the resident's note and discussed the case with the resident. I agree with the resident's findings and plan as documented. SUBJECTIVE: OBJECTIVE: ASSESSMENT AND PLAN:
== END 2019-03-02 18:35 | disposition home health service (06) | DRG 552 ==
LOC: JER 12:39 → JERBED 21:44 → J7W 02-27 16:14
PROVIDERS: ADMIT Internal Medicine; ATTEND Internal Medicine
DX: M54.9 Dorsalgia, unspecified (principal); M48.061 Spinal stenosis, lumbar region without neurogenic claudication; R26.9 Unspecified abnormalities of gait and mobility; I25.10 Atherosclerotic heart disease of native coronary artery without angina pectoris; K75.4 Autoimmune hepatitis; J44.9 Chronic obstructive pulmonary disease, unspecified; Z95.5 Presence of coronary angioplasty implant and graft; K21.9 Gastro-esophageal reflux disease without esophagitis; I10 Essential (primary) hypertension; Z85.3 Personal history of malignant neoplasm of breast; G25.81 Restless legs syndrome; E78.5 Hyperlipidemia, unspecified; E66.9 Obesity, unspecified; Z68.31 Body mass index [BMI] 31.0-31.9, adult
CPT/HCPCS: 36415; 72132-TC; 80048; 80053; 81003; 83735; 85025; 85027; 85610; 93005; 93010; 93971-TC; 97116-GP; 97162-GP; 99285-25; Q9967

== ENCOUNTER 2021-01-28 04:59 | Day surgery (SDC) | payer OTHER, MEDICARE ==
[2021-01-24 15:10] VITALS: BMI 29.9
[2021-01-28] MEDS ORDERED: DEXAMETHASONE SOD PHOSPHATE 10 MG/1 ML VIAL ONE (07:15)
[2021-01-28] MEDS ORDERED: LIDOCAINE HCL/PF 1% SDV 5ML VIAL ONE (07:15)
[2021-01-28] MEDS ORDERED: LIDOCAINE HCL 1% PRESERVATIVE FREE - 30ML VIAL IJ ONE (08:28)
[2021-01-28] MEDS ORDERED: IOHEXOL 180 MG/1 ML ML IJ ONE (08:35)
[2021-01-28] MEDS ORDERED: DEXAMETHASONE SOD PHOSPHATE 10 MG/1 ML VIAL IVPUSH ONE (08:37)
[2021-01-28 09:03] VITALS: TEMP 98
[2021-01-28 09:54] VITALS: BP 119/71; PULSE 61
== END 2021-01-28 09:30 | disposition home or self-care (01) ==
LOC: JASU-SURG 04:59
PROVIDERS: ATTEND Pain Medicine Pain Medicine
PROC: 3E0R33Z Introduction of Anti-inflammatory into Spinal Canal, Percutaneous Approach (ICD-10-PCS; 2021-01-28)
PROC: 3E0R3BZ Introduction of Anesthetic Agent into Spinal Canal, Percutaneous Approach (ICD-10-PCS; principal; 2021-01-28 08:00)
DX: M54.12 Radiculopathy, cervical region (principal)
CPT/HCPCS: 76000-TC-FY; J1100

== ENCOUNTER 2021-02-18 04:34 | Day surgery (SDC) | payer OTHER, MEDICARE ==
[2021-02-13 12:02] VITALS: BMI 30.4
[2021-02-18] MEDS ORDERED: BUPIVACAINE HCL/PF 0.5% (5MG/ML) 10 ML VIAL ONE (07:27)
[2021-02-18] MEDS ORDERED: LIDOCAINE HCL/PF 1% SDV 5ML VIAL ONE (07:27)
[2021-02-18] MEDS ORDERED: TRIAMCINOLONE ACET 40MG/1ML VIAL ONE (07:37)
[2021-02-18] MEDS ORDERED: IOHEXOL 180 MG/1 ML ML IJ ONE (09:42)
[2021-02-18] MEDS ORDERED: BUPIVACAINE HCL/PF 0.5% (5MG/ML) 10 ML VIAL IJ ONE (09:43)
[2021-02-18 11:45] VITALS: BP 130/70; PULSE 68; TEMP 97
== END 2021-02-18 11:15 | disposition home or self-care (01) ==
LOC: JASU-SURG 04:34
PROVIDERS: ATTEND Pain Medicine Pain Medicine
PROC: 3E0T33Z Introduction of Anti-inflammatory into Peripheral Nerves and Plexi, Percutaneous Approach (ICD-10-PCS; 2021-02-18)
PROC: 3E0T3BZ Introduction of Anesthetic Agent into Peripheral Nerves and Plexi, Percutaneous Approach (ICD-10-PCS; principal; 2021-02-18 09:00)
DX: M47.812 Spondylosis without myelopathy or radiculopathy, cervical region (principal)
CPT/HCPCS: 76000-TC-FY

== ENCOUNTER 2021-03-11 04:30 | Day surgery (SDC) | payer OTHER, MEDICARE ==
[2021-03-07 13:31] VITALS: BMI 30.4
[~2021-03-11 04:30] MED LIST: BUPIVACAINE HCL/PF 0.5% (5MG/ML) 10 ML VIAL IJ ONE; IOHEXOL 180 MG/1 ML ML IJ ONE; LIDOCAINE HCL 1% PRESERVATIVE FREE - 30ML VIAL IJ ONE
[2021-03-11] MEDS ORDERED: LIDOCAINE HCL/PF 1% SDV 5ML VIAL ONE (07:23)
[2021-03-11] MEDS ORDERED: BUPIVACAINE HCL/PF 0.5% (5MG/ML) 10 ML VIAL ONE (07:24)
[2021-03-11] MEDS ORDERED: IOHEXOL 180 MG/1 ML ML IJ ONE ×2 (08:49→08:51)
[2021-03-11] MEDS ORDERED: BUPIVACAINE HCL/PF 0.5% (5MG/ML) 10 ML VIAL IJ ONE (08:51)
[2021-03-11] MEDS ORDERED: ACETAMINOPHEN 325 MG TABLET (FP) ONE (09:46)
[2021-03-11 10:51] VITALS: BP 130/70; PULSE 70; TEMP 98
== END 2021-03-11 10:51 | disposition home or self-care (01) ==
LOC: JASU-SURG 04:30
PROVIDERS: ATTEND Pain Medicine Pain Medicine
PROC: 3E0T33Z Introduction of Anti-inflammatory into Peripheral Nerves and Plexi, Percutaneous Approach (ICD-10-PCS; 2021-03-11)
PROC: 3E0T3BZ Introduction of Anesthetic Agent into Peripheral Nerves and Plexi, Percutaneous Approach (ICD-10-PCS; principal; 2021-03-11 08:22)
DX: M47.812 Spondylosis without myelopathy or radiculopathy, cervical region (principal)
CPT/HCPCS: 76000-TC-FY

== ENCOUNTER 2021-04-01 04:03 | Day surgery (SDC) | payer OTHER, MEDICARE ==
[2021-03-27 11:24] VITALS: BMI 30.4
[2021-04-01] MEDS ORDERED: LIDOCAINE HCL/PF 1% SDV 5ML VIAL ONE (07:10)
[2021-04-01] MEDS ORDERED: BUPIVACAINE HCL/PF 0.5% (5MG/ML) 10 ML VIAL IJ ONE (10:31)
[2021-04-01] MEDS ORDERED: LIDOCAINE HCL 1% PRESERVATIVE FREE - 30ML VIAL IJ ONE (10:32)
[2021-04-01] MEDS ORDERED: LIDOCAINE HCL/PF 2% SDV 5ML VIAL INF ONE (10:32)
[2021-04-01] MEDS ORDERED: DEXAMETHASONE SOD PHOSPHATE 10 MG/1 ML VIAL IVPUSH ONE (10:32)
[2021-04-01] MEDS ORDERED: ACETAMINOPHEN 325 MG TABLET (FP) ONE (11:42)
[2021-04-01 12:38] VITALS: BP 147/47; PULSE 65; TEMP 98.8
== END 2021-04-01 12:30 | disposition home or self-care (01) ==
LOC: JASU-SURG 04:03
PROVIDERS: ATTEND Pain Medicine Pain Medicine
PROC: 3E0T3TZ Introduction of Destructive Agent into Peripheral Nerves and Plexi, Percutaneous Approach (ICD-10-PCS; principal; 2021-04-01 09:30)
PROC: BR14YZZ Fluoroscopy of Cervical Facet Joint(s) using Other Contrast (ICD-10-PCS; 2021-04-01 09:30)
DX: M47.812 Spondylosis without myelopathy or radiculopathy, cervical region (principal)
CPT/HCPCS: 76000-TC-FY; J1100

== ENCOUNTER 2021-04-22 04:23 | Day surgery (SDC) | payer OTHER, MEDICARE ==
[2021-04-21 09:56] VITALS: BMI 30.4
[~2021-04-22 04:23] MED LIST changes: -BUPIVACAINE HCL/PF 0.5% (5MG/ML) 10 ML VIAL IJ ONE; +DEXAMETHASONE SOD PHOSPHATE 10 MG/1 ML VIAL IM ONE; -IOHEXOL 180 MG/1 ML ML IJ ONE; +LIDOCAINE 1% P/F 10 MG/ML VIAL INF ONE; -LIDOCAINE HCL 1% PRESERVATIVE FREE - 30ML VIAL IJ ONE; +LIDOCAINE HCL/PF 2% SDV 5ML VIAL INF ONE
[2021-04-22] MEDS ORDERED: TRIAMCINOLONE ACET 40MG/1ML VIAL ONE (07:07)
[2021-04-22] MEDS ORDERED: BUPIVACAINE HCL/PF 0.5% (5MG/ML) 10 ML VIAL ONE (07:08)
[2021-04-22] MEDS ORDERED: LIDOCAINE HCL/PF 1% SDV 5ML VIAL ONE (07:08)
[2021-04-22] MEDS ORDERED: BUPIVACAINE HCL/PF 0.75% 10 ML VIAL ONE (07:08)
[2021-04-22] MEDS ORDERED: DEXAMETHASONE SOD PHOSPHATE 10 MG/1 ML VIAL ONE (07:23)
[2021-04-22] MEDS ORDERED: SODIUM CHLORIDE 0.9% P/F 10 ML VIAL IJ ONE (07:31)
[2021-04-22 07:36] VITALS: PULSE 60
[2021-04-22] MEDS ORDERED: LIDOCAINE 1% P/F 10 MG/ML VIAL INF ONE (09:28)
[2021-04-22] MEDS ORDERED: LIDOCAINE HCL/PF 2% SDV 5ML VIAL INF ONE (09:29)
[2021-04-22] MEDS ORDERED: LIDOCAINE HCL/PF 2% SDV 5ML VIAL ONE (09:33)
[2021-04-22] MEDS ORDERED: DEXAMETHASONE SOD PHOSPHATE 10 MG/1 ML VIAL IM ONE (09:52)
[2021-04-22 10:23] VITALS: BP 121/70; TEMP 98.8
== END 2021-04-22 10:35 | disposition home or self-care (01) ==
LOC: JASU-SURG 04:23
PROVIDERS: ATTEND Pain Medicine Pain Medicine
PROC: 3E0T3TZ Introduction of Destructive Agent into Peripheral Nerves and Plexi, Percutaneous Approach (ICD-10-PCS; principal; 2021-04-22 09:00)
PROC: BR14YZZ Fluoroscopy of Cervical Facet Joint(s) using Other Contrast (ICD-10-PCS; 2021-04-22 09:00)
DX: M47.812 Spondylosis without myelopathy or radiculopathy, cervical region (principal)
CPT/HCPCS: 76000-TC-FY; J1100

== ENCOUNTER 2021-06-02 05:26 | Day surgery (SDC) | payer OTHER, MEDICARE ==
[2021-05-30 13:30] VITALS: BMI 26.2
[2021-06-02] MEDS ORDERED: BUPIVACAINE HCL/PF 0.5% (5MG/ML) 10 ML VIAL ONE (07:16)
[2021-06-02] MEDS ORDERED: LIDOCAINE HCL 1%, 10 MG/ML (20ML VIAL) ONE (07:16)
[2021-06-02] MEDS ORDERED: MIDAZOLAM HCL 2 MG/2 ML SINGLE DOSE VIAL ONE (08:07)
[2021-06-02] MEDS ORDERED: LACTATED RINGERS SOLUTION 1,000 ML IV SCH (08:15)
[2021-06-02] MEDS ORDERED: oxyCODONE HCL 5 MG TABLET PO PRN ×2 (08:15)
[2021-06-02] MEDS ORDERED: ONDANSETRON 4 MG/2 ML VIAL IVPUSH PRN (08:15)
[2021-06-02] MEDS ORDERED: ceFAZolin SODIUM 1 GM VIAL ONE (08:23)
[2021-06-02] MEDS ORDERED: ceFAZolin SODIUM 1 GM VIAL IVPB ONE (08:25)
[2021-06-02] MEDS ORDERED: LIDOCAINE HCL 1%, 10 MG/ML (20ML VIAL) NR ONE ×2 (08:34)
[2021-06-02] MEDS ORDERED: BUPIVACAINE HCL/PF 0.5% (5MG/ML) 10 ML VIAL NR ONE ×2 (08:35)
[2021-06-02] MEDS ORDERED: ONDANSETRON 4 MG/2 ML VIAL ONE (08:41)
[2021-06-02 09:52] VITALS: TEMP 97.5
[2021-06-02 12:59] VITALS: BP 120/60; PULSE 62
== END 2021-06-02 10:45 | disposition home or self-care (01) ==
LOC: JASU-SURG 05:26
PROVIDERS: ATTEND Orthopaedic Surgery
PROC: 0LN80ZZ Release Left Hand Tendon, Open Approach (ICD-10-PCS; 2021-06-02)
PROC: 01N50ZZ Release Median Nerve, Open Approach (ICD-10-PCS; principal; 2021-06-02 08:00)
PROC: 0LB80ZZ Excision of Left Hand Tendon, Open Approach (ICD-10-PCS; 2021-06-02 08:00)
DX: G56.02 Carpal tunnel syndrome, left upper limb (principal); M65.332 Trigger finger, left middle finger; M65.842 Other synovitis and tenosynovitis, left hand
CPT/HCPCS: 88304-TC

== ENCOUNTER 2021-06-26 17:49 | Emergency (ER) | payer OTHER, MEDICARE ==
[2021-06-26 18:06] VITALS: BMI 28.3
[2021-06-26] MEDS ORDERED: ACETAMINOPHEN 1000 MG/100 ML BAG IVPB ONE (18:37)
[2021-06-26] MEDS ORDERED: ACETAMINOPHEN INJECTION 100 ML IVPB ONE (18:44)
[2021-06-26] MEDS ORDERED: morphine CARPU-JECT 4 MG/1 ML DISP.SYRIN IVPUSH ONE (19:29)
[2021-06-26 20:03] LABS: BASO % 0.9 % (0-2.0); EOS % 1.5 % (0-4.5); HEMATOCRIT 42.4 % (32.4-45.2); HEMOGLOBIN 14.1 GM/dL (10.7-15.3); LYMPH % 34.2 % (8-40); MCH 32.3 pg (25.7-33.7); MCHC 33.1 g/dl (32.0-36.0); MEAN CELL VOLUME 97.5 fl (80-96); MEAN PLT VOLUME 9.5 fl (7.5-11.1); NEUT % 50.4 % (42.8-82.8); PLATELET COUNT 182 10^3/uL (134-434); RBC 4.35 M/mm3 (3.60-5.2); WHITE BLOOD COUNT 5.4 K/mm3 (4.0-10.0)
[2021-06-26 20:28] LABS: ALBUMIN 3.7 g/dl (3.4-5.0); CALCIUM 9.2 mg/dL (8.5-10.1); MAGNESIUM 2.7 mg/dL (1.8-2.4)
[2021-06-26 20:31] LABS: CREATININE 0.8 mg/dL (0.55-1.3)
[2021-06-26 20:33] LABS: BILIRUBIN,TOTAL 0.5 mg/dL (0.2-1); TOT PROT 7.3 g/dl (6.4-8.2)
[2021-06-26] MEDS ORDERED: POLYETHYLENE GLYCOL (HEALTHYLAX) 3350 17 GM PACKET PO SCH (20:45)
[2021-06-26 23:38] VITALS: BP 129/71; PULSE 60
[2021-06-26] MEDS ORDERED: SODIUM PHOSPHATE/NA BIPHOS 133 ML ENEMA PR ONE (23:44)
[2021-06-26] MEDS ORDERED: POLYETHYLENE GLYCOL (HEALTHYLAX) 3350 17 GM PACKET ONE (23:48)
[2021-06-27 01:30] VITALS: TEMP 98.1
== END 2021-06-27 02:15 | disposition home or self-care (01) ==
LOC: JER 17:49
PROC: 3E033GC Introduction of Other Therapeutic Substance into Peripheral Vein, Percutaneous Approach (ICD-10-PCS; principal; 2021-06-26)
DX: K59.00 Constipation, unspecified (principal)
CPT/HCPCS: 36415; 74176-TC; 80053; 82272; 83605; 83735; 85025; 99285-25

== ENCOUNTER 2021-12-03 04:26 | Day surgery (SDC) | payer OTHER, MEDICARE ==
[2021-12-01 14:37] VITALS: BMI 30.4
[2021-12-03] MEDS ORDERED: LIDOCAINE HCL 1%, 10 MG/ML (20ML VIAL) ONE (07:13)
[2021-12-03] MEDS ORDERED: BUPIVACAINE HCL/PF 0.5% (5MG/ML) 10 ML VIAL ONE ×2 (07:13→07:14)
[2021-12-03] MEDS ORDERED: MIDAZOLAM HCL 2 MG/2 ML SINGLE DOSE VIAL ONE (08:14)
[2021-12-03] MEDS ORDERED: KETAMINE HCL 500 MG/10 ML VIAL ONE (08:15)
[2021-12-03] MEDS ORDERED: ONDANSETRON 4 MG/2 ML VIAL ONE (08:27)
[2021-12-03] MEDS ORDERED: ceFAZolin SODIUM 1 GM VIAL ONE (08:28)
[2021-12-03] MEDS ORDERED: PROPOFOL 20 ML ONE (08:35)
[2021-12-03] MEDS ORDERED: KETOROLAC TROMETHAMINE 30 MG/1 ML VIAL ONE (08:43)
[2021-12-03] MEDS ORDERED: BUPIVACAINE HCL/PF 0.5% (5MG/ML) 10 ML VIAL IJ ONE ×2 (08:43)
[2021-12-03] MEDS ORDERED: LIDOCAINE HCL 1%, 10 MG/ML (20ML VIAL) INF ONE ×2 (08:44)
[2021-12-03] MEDS ORDERED: ACETAMINOPHEN 325 MG TABLET (FP) PO PRN (09:11)
[2021-12-03] MEDS ORDERED: oxyCODONE HCL 5 MG TABLET PO PRN (09:11)
[2021-12-03] MEDS ORDERED: ONDANSETRON 4 MG/2 ML VIAL IVPUSH PRN (09:11)
[2021-12-03] MEDS ORDERED: PROMETHAZINE HCL 25 MG/1 ML VIAL IVPUSH PRN (09:11)
[2021-12-03 09:49] VITALS: RESP 18
[2021-12-03 09:51] VITALS: TEMP 98
[2021-12-03 13:48] VITALS: BP 146/89; PULSE 67
== END 2021-12-03 11:15 | disposition home or self-care (01) ==
LOC: JASU-SURG 04:26
PROVIDERS: ATTEND Orthopaedic Surgery
PROC: 01N50ZZ Release Median Nerve, Open Approach (ICD-10-PCS; principal; 2021-12-03 08:00)
DX: G56.01 Carpal tunnel syndrome, right upper limb (principal)
CPT/HCPCS: 88304-TC; 94760

== ENCOUNTER 2022-01-06 23:30 | Inpatient (IN) | payer OTHER, MEDICARE ==
[2022-01-06 23:51] VITALS: BMI 29.8
[2022-01-06] MEDS ORDERED: SODIUM CHLORIDE 0.9% 500 ML INFUS.BAG IV ONE (23:52)
[2022-01-06] MEDS ORDERED: ACETAMINOPHEN 1000 MG/100 ML BAG IVPB ONE (23:52)
[2022-01-06] MEDS ORDERED: ACETAMINOPHEN INJECTION 100 ML IVPB ONE (23:53)
[2022-01-07] MEDS ORDERED: SODIUM CHLORIDE 0.9% 500 ML INFUS.BAG IV ONE (00:22)
[2022-01-07 00:27] LABS: BASO % 0.5 % (0-2.0); EOS % 0.8 % (0-4.5); HEMATOCRIT 41.4 % (32.4-45.2); HEMOGLOBIN 13.9 GM/dL (10.7-15.3); LYMPH % 18.7 % (8-40); MCH 32.7 pg (25.7-33.7); MCHC 33.5 g/dl (32.0-36.0); MEAN CELL VOLUME 97.9 fl (80-96); MEAN PLT VOLUME 9.7 fl (7.5-11.1); PLATELET COUNT 159 10^3/uL (134-434); RBC 4.23 M/mm3 (3.60-5.2); RDW 13.4 % (11.6-15.6); WHITE BLOOD COUNT 6.8 K/mm3 (4.0-10.0)
[2022-01-07 00:28] LABS: VENOUS BASE EXCESS 0.4 mmol/L (-2-2); VENOUS O2 SATURATION 79.1 % (70-80); VENOUS PCO2 40.6 mmHg (38-52); VENOUS PH 7.409 (7.310-7.410)
[2022-01-07 00:38] LABS: INR 1.18 (0.83-1.09); PROTHROMBIN TIME (PATIENT) 13.6 SEC (9.7-13.0)
[2022-01-07 00:41] LABS: ACTIVATED PTT 30.1 SECONDS (25.2-36.5)
[2022-01-07 00:49] LABS: CHLORIDE 104 mmol/L (98-107); SODIUM 137 mmol/L (136-145)
[2022-01-07 00:51] LABS: ALBUMIN 3.4 g/dl (3.4-5.0); ANION GAP 10 MMOL/L (8-16); BLOOD UREA NITROGEN 18.7 mg/dL (7-18); CALCIUM 8.5 mg/dL (8.5-10.1); CO2 23 mmol/L (21-32); GLUCOSE,RANDOM 103 mg/dL (74-106)
[2022-01-07 00:54] LABS: CREATININE 0.8 mg/dL (0.55-1.3); SGOT/AST 50 U/L (15-37)
[2022-01-07 00:55] LABS: SGPT/ALT 22 U/L (13-61)
[2022-01-07 00:56] LABS: BILIRUBIN,TOTAL 0.6 mg/dL (0.2-1); TOT PROT 7.2 g/dl (6.4-8.2)
[2022-01-07 00:59] LABS: ALK PHOS 52 U/L (45-117)
[2022-01-07] MEDS ORDERED: AZITHROMYCIN IVPB 500 MG in DEXTROSE 5%-WATER - 250 ML IVPB ONE (01:32)
[2022-01-07] MEDS ORDERED: CEFTRIAXONE 1 GM in DEXTROSE 5%-WATER - 100 ML IVPB ONE (01:32)
[2022-01-07] MEDS ORDERED: CEFTRIAXONE 1 GM/50 ML BAG ONE ×2 (01:39→08:44)
[2022-01-07] MEDS ORDERED: AZITHROMYCIN IVPB 500 MG/250 ML BAG IVPB ONE (01:40)
[2022-01-07 02:23] VITALS: RESP 20
[2022-01-07] MEDS ORDERED: ALBUTEROL SO4 0.083% IH SOL 2.5 MG/3 ML VIAL.NEB. NEB PRN (02:56)
[2022-01-07] MEDS ORDERED: ACETAMINOPHEN 325 MG TABLET (FP) PO PRN (02:57)
[2022-01-07] MEDS: ALBUTEROL SO4 2.5/IPRATROPIUM 0.5 INH SOL 3 ML VIAL.NEB. NEB SCH ×6 (04:47→23:36)
[2022-01-07 05:50] LABS: N-TERMINAL BNP 213.5 pg/ml (5-450)
[2022-01-07] MEDS ORDERED: ALBUTEROL SO4 2.5/IPRATROPIUM 0.5 INH SOL 3 ML VIAL.NEB. NEB ONE ×3 (06:49→14:19)
[2022-01-07] MEDS ORDERED: ENOXAPARIN NA (PORCINE) 40 MG/0.4 ML DISP.SYRIN SQ ONE (08:43)
[2022-01-07] MEDS ORDERED: AZITHROMYCIN 250 MG TABLET ONE (08:43)
[2022-01-07 08:47] LABS: BASO % 1.3 % (0-2.0); EOS % 1.4 % (0-4.5); HEMATOCRIT 41.6 % (32.4-45.2); HEMOGLOBIN 13.9 GM/dL (10.7-15.3); LYMPH % 23.3 % (8-40); MCH 32.7 pg (25.7-33.7); MCHC 33.4 g/dl (32.0-36.0); MEAN CELL VOLUME 97.8 fl (80-96); MEAN PLT VOLUME 9.3 fl (7.5-11.1); MONO % 13.2 % (3.8-10.2); NEUT % 60.8 % (42.8-82.8); PLATELET COUNT 151 10^3/uL (134-434); RBC 4.25 M/mm3 (3.60-5.2); RDW 12.9 % (11.6-15.6)
[2022-01-07] MEDS ORDERED: POLYETHYLENE GLYCOL (HEALTHYLAX) 3350 17 GM PACKET ONE (08:56)
[2022-01-07 09:12] LABS: ALBUMIN 3.4 g/dl (3.4-5.0); CALCIUM 8.7 mg/dL (8.5-10.1)
[2022-01-07 09:13] LABS: BLOOD UREA NITROGEN 13.2 mg/dL (7-18); MAGNESIUM 2.1 mg/dL (1.8-2.4)
[2022-01-07] MEDS: SODIUM CHLORIDE 1,000 ML IV SCH ×2 (09:14→21:29)
[2022-01-07] MEDS: POLYETHYLENE GLYCOL (HEALTHYLAX) 3350 17 GM PACKET PO SCH (09:15)
[2022-01-07] MEDS: ENOXAPARIN NA (PORCINE) 40 MG/0.4 ML DISP.SYRIN SQ SCH (09:15)
[2022-01-07 09:16] LABS: CREATININE 0.7 mg/dL (0.55-1.3); PHOSPHOROUS 3.3 mg/dL (2.5-4.9)
[2022-01-07 09:17] LABS: TOT PROT 7.1 g/dl (6.4-8.2)
[2022-01-07 09:19] LABS: BILIRUBIN,TOTAL 0.7 mg/dL (0.2-1)
[2022-01-07] MEDS ORDERED: CEFTRIAXONE 1 GM in DEXTROSE 5%-WATER - 50 ML IVPB SCH (10:00)
[2022-01-07] MEDS ORDERED: AZITHROMYCIN IVPB 250 MG in DEXTROSE 5%-WATER - 250 ML IVPB SCH (10:00)
[2022-01-07] MEDS ORDERED: ACETAMINOPHEN 325 MG TABLET (FP) ONE (14:19)
[2022-01-07] MEDS ORDERED: amLODIPine BESYLATE 2.5 MG TABLET (FP) ONE (15:50)
[2022-01-07] MEDS: CLOPIDOGREL BISULFATE 75 MG TABLET (FP) PO SCH (15:55)
[2022-01-07] MEDS ORDERED: amLODIPine BESYLATE 5 MG TABLET (FP) PO SCH (16:00)
[2022-01-07] MEDS ORDERED: amLODIPine BESYLATE 2.5 MG TABLET (FP) PO SCH (16:05)
[2022-01-07] MEDS: guaiFENesin 600 MG TABLET.ER (FP) PO SCH ×2 (16:33→21:28)
[2022-01-07] MEDS ORDERED: RANOLAZINE E.R. 500 MG TABLET (FP) ONE (21:21)
[2022-01-07] MEDS ORDERED: rOPINIRole HCL 0.25 MG TABLET PO SCH (22:00)
[2022-01-07] MEDS ORDERED: SENNOSIDES 8.6MG TABLET (FP) PO SCH (22:00)
[2022-01-07] MEDS: RANOLAZINE E.R. 1,000 MG TABLET (FP) PO SCH (23:23)
[2022-01-08] MEDS ORDERED: MELATONIN 5 MG TABLETS PO PRN (01:29)
[2022-01-08] MEDS: ALBUTEROL SO4 2.5/IPRATROPIUM 0.5 INH SOL 3 ML VIAL.NEB. NEB SCH ×5 (03:50→11:44)
[2022-01-08] MEDS ORDERED: ALBUTEROL SO4 2.5/IPRATROPIUM 0.5 INH SOL 3 ML VIAL.NEB. NEB SCH (07:51)
[2022-01-08] MEDS ORDERED: DOXYCYCLINE HYCLATE 100 MG CAPSULE PO SCH (10:00)
[2022-01-08] MEDS ORDERED: FAMOTIDINE 20 MG TABLET PO SCH (10:00)
[2022-01-08] MEDS ORDERED: CEFTRIAXONE 1 GM in DEXTROSE 5%-WATER - 50 ML IVPB SCH (10:00)
[2022-01-08] MEDS ORDERED: RANOLAZINE E.R. 500 MG TABLET (FP) ONE (10:03)
[2022-01-08] MEDS: CLOPIDOGREL BISULFATE 75 MG TABLET (FP) PO SCH (10:09)
[2022-01-08] MEDS: guaiFENesin 600 MG TABLET.ER (FP) PO SCH (10:09)
[2022-01-08] MEDS: POLYETHYLENE GLYCOL (HEALTHYLAX) 3350 17 GM PACKET PO SCH (10:09)
[2022-01-08] MEDS: RANOLAZINE E.R. 1,000 MG TABLET (FP) PO SCH (10:10)
[2022-01-08] MEDS: ENOXAPARIN NA (PORCINE) 40 MG/0.4 ML DISP.SYRIN SQ SCH (10:13)
[2022-01-08 10:40] LABS: BASO % 0.6 % (0-2.0); EOS % 0.8 % (0-4.5); HEMATOCRIT 36.3 % (32.4-45.2); HEMOGLOBIN 12.2 GM/dL (10.7-15.3); LYMPH % 39.9 % (8-40); MCH 32.9 pg (25.7-33.7); MCHC 33.6 g/dl (32.0-36.0); MEAN CELL VOLUME 97.8 fl (80-96); MEAN PLT VOLUME 9.2 fl (7.5-11.1); MONO % 18.4 % (3.8-10.2); NEUT % 40.3 % (42.8-82.8); PLATELET COUNT 121 10^3/uL (134-434); RBC 3.71 M/mm3 (3.60-5.2); RDW 13.1 % (11.6-15.6); WHITE BLOOD COUNT 3.5 K/mm3 (4.0-10.0)
[2022-01-08 11:04] LABS: BLOOD UREA NITROGEN 11.8 mg/dL (7-18); CALCIUM 8.1 mg/dL (8.5-10.1)
[2022-01-08 11:07] LABS: CREATININE 0.7 mg/dL (0.55-1.3); PHOSPHOROUS 2.4 mg/dL (2.5-4.9)
[2022-01-08 11:09] LABS: BILIRUBIN,TOTAL 0.3 mg/dL (0.2-1)
[2022-01-08] MEDS ORDERED: POTASSIUM CHLORIDE TABS 20 MEQ TABLET.ER (FP) PO ONE (12:45)
[2022-01-08 15:20] VITALS: BP 140/71; PULSE 91; TEMP 98.9
== END 2022-01-08 14:00 | disposition home or self-care (01) | DRG 202 ==
LOC: JER 23:30 → JERBED 01-07 02:13 → OBSVTOIN 01-07 08:57 → J8W 01-07 18:29
PROVIDERS: ADMIT Internal Medicine; ATTEND Internal Medicine
DX: J20.5 Acute bronchitis due to respiratory syncytial virus (principal); J18.9 Pneumonia, unspecified organism; J98.11 Atelectasis; J44.0 Chronic obstructive pulmonary disease with (acute) lower respiratory infection; I10 Essential (primary) hypertension; E78.5 Hyperlipidemia, unspecified; J44.9 Chronic obstructive pulmonary disease, unspecified; K21.9 Gastro-esophageal reflux disease without esophagitis; K59.00 Constipation, unspecified
CPT/HCPCS: 0241U-QW; 36415; 71045-TC-FY; 80053; 82550; 82553; 82803; 83605; 83735; 83880; 84100; 84484; 85025; 85610; 85730; 86850; 86900; 86901; 87040; 93005; 93010; 94640; 99285-25; G0378

== ENCOUNTER 2022-05-08 05:30 | Day surgery (SDC) | payer OTHER, MEDICARE ==
[2022-05-08] MEDS ORDERED: LIDOCAINE HCL 1% PRESERVATIVE FREE - 30ML VIAL IJ ONE ×2 (09:57→10:00)
[2022-05-08] MEDS ORDERED: BUPIVACAINE HCL/PF 0.75% 10 ML VIAL PNB ONE ×3 (09:58→10:00)
[2022-05-08 10:55] VITALS: RESP 20
[2022-05-08 12:06] VITALS: BP 130/60; PULSE 68; TEMP 98
== END 2022-05-08 11:40 | disposition home or self-care (01) ==
LOC: JASU-SURG 05:30
PROVIDERS: ATTEND Pain Medicine Pain Medicine
PROC: 3E0T33Z Introduction of Anti-inflammatory into Peripheral Nerves and Plexi, Percutaneous Approach (ICD-10-PCS; 2022-05-08)
PROC: 3E0T3BZ Introduction of Anesthetic Agent into Peripheral Nerves and Plexi, Percutaneous Approach (ICD-10-PCS; principal; 2022-05-08 10:15)
DX: M47.816 Spondylosis without myelopathy or radiculopathy, lumbar region (principal)
CPT/HCPCS: 76000-TC-FY

== ENCOUNTER 2022-06-09 03:57 | Day surgery (SDC) | payer OTHER, MEDICARE ==
[~2022-06-09 03:57] MED LIST changes: +BUPIVACAINE HCL/PF 0.75% 10 ML VIAL NR ONE; -DEXAMETHASONE SOD PHOSPHATE 10 MG/1 ML VIAL IM ONE; -LIDOCAINE 1% P/F 10 MG/ML VIAL INF ONE; -LIDOCAINE HCL/PF 2% SDV 5ML VIAL INF ONE
[2022-06-09] MEDS ORDERED: BUPIVACAINE HCL/PF 0.75% 10 ML VIAL ONE (07:24)
[2022-06-09] MEDS ORDERED: LIDOCAINE HCL/PF 1% SDV 5ML VIAL ONE (07:24)
[2022-06-09] MEDS ORDERED: LIDOCAINE HCL 1% PRESERVATIVE FREE - 30ML VIAL IJ ONE (10:20)
[2022-06-09] MEDS ORDERED: BUPIVACAINE HCL/PF 0.75% 10 ML VIAL NR ONE (10:24)
[2022-06-09 10:57] VITALS: RESP 16; TEMP 97.1
[2022-06-09] MEDS ORDERED: ACETAMINOPHEN 500 MG TABLET (FP) PO PRN (11:27)
[2022-06-09 11:28] VITALS: BP 106/52; PULSE 62
== END 2022-06-09 11:39 | disposition home or self-care (01) ==
LOC: JASU-SURG 03:57
PROVIDERS: ATTEND Pain Medicine Pain Medicine
PROC: 3E0T33Z Introduction of Anti-inflammatory into Peripheral Nerves and Plexi, Percutaneous Approach (ICD-10-PCS; 2022-06-09)
PROC: 3E0T3BZ Introduction of Anesthetic Agent into Peripheral Nerves and Plexi, Percutaneous Approach (ICD-10-PCS; principal; 2022-06-09 10:00)
DX: M47.816 Spondylosis without myelopathy or radiculopathy, lumbar region (principal)
CPT/HCPCS: 76000-TC-FY

== ENCOUNTER 2022-07-10 04:07 | Day surgery (SDC) | payer OTHER, MEDICARE ==
[~2022-07-10 04:07] MED LIST changes: +DEXAMETHASONE SOD PHOSPHATE 10 MG/1 ML VIAL IVPUSH ONE; +LIDOCAINE HCL 1% PRESERVATIVE FREE - 30ML VIAL INF ONE; +LIDOCAINE HCL/PF 2% SDV 5ML VIAL INF ONE
[2022-07-10] MEDS ORDERED: BUPIVACAINE HCL/PF 0.75% 10 ML VIAL ONE (07:18)
[2022-07-10] MEDS ORDERED: LIDOCAINE HCL/PF 2% SDV 5ML VIAL ONE (07:18)
[2022-07-10] MEDS ORDERED: LIDOCAINE HCL/PF 1% SDV 5ML VIAL ONE (07:18)
[2022-07-10] MEDS ORDERED: DEXAMETHASONE SOD PHOSPHATE 10 MG/1 ML VIAL ONE (07:19)
[2022-07-10] MEDS ORDERED: LIDOCAINE HCL 1% PRESERVATIVE FREE - 30ML VIAL INF ONE (09:38)
[2022-07-10] MEDS ORDERED: LIDOCAINE HCL/PF 2% SDV 5ML VIAL INF ONE (09:40)
[2022-07-10] MEDS ORDERED: BUPIVACAINE HCL/PF 0.75% 10 ML VIAL NR ONE (09:41)
[2022-07-10] MEDS ORDERED: DEXAMETHASONE SOD PHOSPHATE 10 MG/1 ML VIAL IVPUSH ONE (10:02)
[2022-07-10] MEDS ORDERED: ACETAMINOPHEN 500 MG TABLET (FP) PO ONE (10:15)
[2022-07-10] MEDS ORDERED: ACETAMINOPHEN 500 MG TABLET (FP) ONE (10:15)
[2022-07-10 11:36] VITALS: BP 128/62; PULSE 72; RESP 20; TEMP 98.1
[2022-07-10] MEDS ORDERED: ACETAMINOPHEN 500 MG TABLET (FP) PO PRN (14:50)
== END 2022-07-10 11:44 | disposition home or self-care (01) ==
LOC: JASU-SURG 04:07
PROVIDERS: ATTEND Pain Medicine Pain Medicine
PROC: 015B3ZZ Destruction of Lumbar Nerve, Percutaneous Approach (ICD-10-PCS; principal; 2022-07-10 10:30)
DX: M47.816 Spondylosis without myelopathy or radiculopathy, lumbar region (principal)
CPT/HCPCS: 76000-TC-FY; J1100

== ENCOUNTER 2022-08-07 05:35 | Day surgery (SDC) | payer OTHER, MEDICARE ==
[2022-08-06 13:40] VITALS: BMI 32.3
[2022-08-07] MEDS ORDERED: BUPIVACAINE HCL/PF 0.75% 10 ML VIAL ONE (07:34)
[2022-08-07] MEDS ORDERED: LIDOCAINE HCL/PF 2% SDV 5ML VIAL ONE (07:34)
[2022-08-07] MEDS ORDERED: LIDOCAINE HCL/PF 1% SDV 5ML VIAL ONE (07:34)
[2022-08-07] MEDS ORDERED: DEXAMETHASONE SOD PHOSPHATE 10 MG/1 ML VIAL ONE (07:35)
[2022-08-07] MEDS ORDERED: DEXAMETHASONE SOD PHOSPHATE 10 MG/1 ML VIAL IVPUSH ONE (11:53)
[2022-08-07] MEDS ORDERED: LIDOCAINE HCL/PF 2% SDV 5ML VIAL INF ONE (11:54)
[2022-08-07] MEDS ORDERED: ACETAMINOPHEN 500 MG TABLET (FP) ONE (12:30)
[2022-08-07 13:25] VITALS: TEMP 98.2
[2022-08-07 13:32] VITALS: BP 130/70; PULSE 60; RESP 18
[2022-08-07] MEDS ORDERED: ACETAMINOPHEN 500 MG TABLET (FP) PO PRN (16:22)
== END 2022-08-07 13:20 | disposition home or self-care (01) ==
LOC: JASU-SURG 05:35
PROVIDERS: ATTEND Pain Medicine Pain Medicine
PROC: 015B3ZZ Destruction of Lumbar Nerve, Percutaneous Approach (ICD-10-PCS; principal; 2022-08-07 12:45)
DX: M47.816 Spondylosis without myelopathy or radiculopathy, lumbar region (principal)
CPT/HCPCS: 76000-TC-FY; J1100

== ENCOUNTER 2022-10-09 04:08 | Day surgery (SDC) | payer OTHER, MEDICARE ==
[2022-10-01 09:16] VITALS: BMI 33.0
[~2022-10-09 04:08] MED LIST changes: +ACETAMINOPHEN 500 MG TABLET (FP) PO PRN; -BUPIVACAINE HCL/PF 0.75% 10 ML VIAL NR ONE; -DEXAMETHASONE SOD PHOSPHATE 10 MG/1 ML VIAL IVPUSH ONE; -LIDOCAINE HCL 1% PRESERVATIVE FREE - 30ML VIAL INF ONE; -LIDOCAINE HCL/PF 2% SDV 5ML VIAL INF ONE
[2022-10-09] MEDS ORDERED: LIDOCAINE HCL/PF 2% SDV 5ML VIAL ONE (07:16)
[2022-10-09] MEDS ORDERED: BUPIVACAINE HCL/PF 0.75% 10 ML VIAL ONE (07:16)
[2022-10-09] MEDS ORDERED: LIDOCAINE HCL/PF 1% SDV 5ML VIAL ONE ×2 (07:16→10:22)
[2022-10-09] MEDS ORDERED: BUPIVACAINE HCL/PF 0.25% (2.5MG/ML) 10 ML VIAL ONE (07:16)
[2022-10-09] MEDS ORDERED: TRIAMCINOLONE ACET 40MG/1ML VIAL ONE (07:16)
[2022-10-09] MEDS ORDERED: BUPIVACAINE HCL/PF 0.5% (5MG/ML) 10 ML VIAL ONE (07:16)
[2022-10-09] MEDS ORDERED: DEXAMETHASONE SOD PHOSPHATE 10 MG/1 ML VIAL ONE (07:17)
[2022-10-09] MEDS ORDERED: ACETAMINOPHEN 500 MG TABLET (FP) PO PRN (08:46)
[2022-10-09 08:56] VITALS: RESP 18
[2022-10-09] MEDS ORDERED: DEXAMETHASONE SOD PHOSPHATE 10 MG/1 ML VIAL IVPUSH ONE (10:48)
[2022-10-09] MEDS ORDERED: IOHEXOL 180 MG/1 ML ML IJ ONE (10:48)
[2022-10-09] MEDS ORDERED: LIDOCAINE HCL 1% PRESERVATIVE FREE - 30ML VIAL IJ ONE (10:48)
[2022-10-09 11:56] VITALS: BP 127/75; PULSE 68; TEMP 97.1
== END 2022-10-09 12:05 | disposition home or self-care (01) ==
LOC: JASU-SURG 04:08
PROVIDERS: ATTEND Pain Medicine Pain Medicine
PROC: 3E0R3BZ Introduction of Anesthetic Agent into Spinal Canal, Percutaneous Approach (ICD-10-PCS; 2022-10-09)
PROC: 3E0R33Z Introduction of Anti-inflammatory into Spinal Canal, Percutaneous Approach (ICD-10-PCS; principal; 2022-10-09 10:30)
DX: M54.16 Radiculopathy, lumbar region (principal)
CPT/HCPCS: 76000-TC-FY; J1100

== ENCOUNTER 2022-11-12 05:01 | Day surgery (SDC) | payer OTHER, MEDICARE ==
[2022-11-10 10:49] VITALS: BMI 35.1
[2022-11-12 09:32] VITALS: PULSE 53; RESP 14
[2022-11-12 09:44] VITALS: BP 115/79; TEMP 98.3
== END 2022-11-12 10:14 | disposition home or self-care (01) ==
LOC: JASU-ENDO 05:01
PROVIDERS: ATTEND Internal Medicine Gastroenterology
PROC: 0DB68ZX Excision of Stomach, Via Natural or Artificial Opening Endoscopic, Diagnostic (ICD-10-PCS; 2022-11-12)
PROC: 0DJD8ZZ Inspection of Lower Intestinal Tract, Via Natural or Artificial Opening Endoscopic (ICD-10-PCS; principal; 2022-11-12 08:30)
DX: Z12.11 Encounter for screening for malignant neoplasm of colon (principal); Z86.010 Personal history of colon polyps; K64.8 Other hemorrhoids; K29.00 Acute gastritis without bleeding; K44.9 Diaphragmatic hernia without obstruction or gangrene; K29.50 Unspecified chronic gastritis without bleeding
CPT/HCPCS: 43239; G0105; 88305-TC; 88342-TC

== ENCOUNTER 2022-11-17 04:52 | Day surgery (SDC) | payer OTHER, MEDICARE ==
[2022-11-16 12:19] VITALS: BMI 33.0
[2022-11-17] MEDS ORDERED: LIDOCAINE HCL/PF 1% SDV 5ML VIAL ONE (07:25)
[2022-11-17] MEDS ORDERED: LIDOCAINE HCL 1% PRESERVATIVE FREE - 30ML VIAL IJ ONE (08:34)
[2022-11-17 10:55] VITALS: RESP 18; TEMP 98
[2022-11-17 10:56] VITALS: BP 127/69; PULSE 58
[2022-11-17] MEDS ORDERED: ACETAMINOPHEN 500 MG TABLET (FP) PO PRN (15:07)
== END 2022-11-17 10:35 | disposition home or self-care (01) ==
LOC: JASU-SURG 04:52
PROVIDERS: ATTEND Pain Medicine Pain Medicine
PROC: 01HY3MZ Insertion of Neurostimulator Lead into Peripheral Nerve, Percutaneous Approach (ICD-10-PCS; principal; 2022-11-17 08:00)
DX: G89.4 Chronic pain syndrome (principal)
CPT/HCPCS: 64555; C1778; 76000-TC-FY

== ENCOUNTER 2022-12-15 04:23 | Day surgery (SDC) | payer OTHER, MEDICARE ==
[2022-12-14 14:09] VITALS: BMI 32.8
[2022-12-15] MEDS ORDERED: LIDOCAINE HCL/PF 1% SDV 5ML VIAL ONE (07:14)
[2022-12-15 07:15] VITALS: RESP 18
[2022-12-15] MEDS ORDERED: ACETAMINOPHEN 500 MG TABLET (FP) PO PRN (08:38)
[2022-12-15] MEDS ORDERED: LIDOCAINE HCL 1% PRESERVATIVE FREE - 30ML VIAL IJ ONE (08:49)
[2022-12-15 10:59] VITALS: BP 131/63; PULSE 68; TEMP 97.9
== END 2022-12-15 10:41 | disposition home or self-care (01) ==
LOC: JASU-SURG 04:23
PROVIDERS: ATTEND Pain Medicine Pain Medicine
PROC: 01HY3MZ Insertion of Neurostimulator Lead into Peripheral Nerve, Percutaneous Approach (ICD-10-PCS; principal; 2022-12-15 08:30)
DX: G89.4 Chronic pain syndrome (principal); M54.50 Low back pain, unspecified
CPT/HCPCS: 64555; C1778; 76000-TC-FY

== ENCOUNTER 2023-01-08 03:46 | Day surgery (SDC) | payer OTHER, MEDICARE ==
[2022-12-30 14:27] VITALS: BMI 32.8
[2023-01-08] MEDS ORDERED: LIDOCAINE HCL/PF 1% SDV 5ML VIAL ONE (07:29)
[2023-01-08] MEDS ORDERED: LIDOCAINE 1% P/F 10 MG/ML VIAL INF ONE ×2 (09:03)
[2023-01-08] MEDS ORDERED: ACETAMINOPHEN 500 MG TABLET (FP) PO PRN (11:02)
[2023-01-08 14:59] VITALS: BP 128/60; PULSE 72; RESP 20; TEMP 97.2
== END 2023-01-08 10:38 | disposition home or self-care (01) ==
LOC: JASU-SURG 03:46
PROVIDERS: ATTEND Pain Medicine Pain Medicine
PROC: 01HY3MZ Insertion of Neurostimulator Lead into Peripheral Nerve, Percutaneous Approach (ICD-10-PCS; principal; 2023-01-08 08:00)
DX: G89.4 Chronic pain syndrome (principal)
CPT/HCPCS: 64555; C1778; 76000-TC-FY

== ENCOUNTER 2023-01-12 23:55 | Emergency (ER) | payer OTHER, MEDICARE ==
[2023-01-13] VITALS: BMI 33.2
[2023-01-13] MEDS ORDERED: ACETAMINOPHEN 1000 MG/100 ML BAG IVPB ONE (01:41)
[2023-01-13] MEDS ORDERED: ACETAMINOPHEN INJECTION 100 ML IVPB ONE (02:14)
[2023-01-13 02:18] LABS: EOS % 2.9 % (0-4.5); HEMATOCRIT 39.6 % (32.4-45.2); HEMOGLOBIN 13.2 GM/dL (10.7-15.3); LYMPH % 30.8 % (8-40); MCH 32.8 pg (25.7-33.7); MCHC 33.3 g/dl (32.0-36.0); MEAN CELL VOLUME 98.7 fl (80-96); MEAN PLT VOLUME 9.1 fl (7.5-11.1); MONO % 15.7 % (3.8-10.2); NEUT % 49.6 % (42.8-82.8); PLATELET COUNT 168 10^3/uL (134-434); RBC 4.01 M/mm3 (3.60-5.2); RDW 13.3 % (11.6-15.6); WHITE BLOOD COUNT 7.2 K/mm3 (4.0-10.0)
[2023-01-13 02:30] LABS: POTASSIUM 4.6 mmol/L (3.5-5.1)
[2023-01-13 02:34] LABS: ALBUMIN 3.9 g/dl (3.4-5.0); BLOOD UREA NITROGEN 23.2 mg/dL (7-18)
[2023-01-13 02:37] LABS: CREATININE 0.7 mg/dL (0.55-1.3)
[2023-01-13 02:39] LABS: BILIRUBIN,TOTAL 0.6 mg/dL (0.2-1)
[2023-01-13 02:44] LABS: CALCIUM 8.9 mg/dL (8.5-10.1)
[2023-01-13 06:03] LABS: EPI CELLS 2 /uL (0-25.1); HYALINE CASTS 2 /uL (0-3.1); URINE APPEARANCE CLEAR; URINE BACTERIA 200 /uL (0-1359); URINE BILIRUBIN NEGATIVE (NEGATIVE); URINE COLOR YELLOW; URINE GLUCOSE (UA) NEGATIVE (NEGATIVE); URINE KETONE NEGATIVE (NEGATIVE); URINE LEUK ESTERASE 2+ (NEGATIVE); URINE NITRITE NEGATIVE (NEGATIVE); URINE PROTEIN NEGATIVE (NEGATIVE); URINE UROBILINOGEN 0.2 mg/dL (0.2-1.0); URINE WBC 492 /uL (0-25.8)
[2023-01-13] MEDS ORDERED: morphine CARPU-JECT 2 MG/1 ML DISP.SYRIN IM ONE (06:50)
[2023-01-13 08:46] VITALS: BP 120/51; PULSE 62; TEMP 98.5
[2023-01-13 09:57] VITALS: RESP 20
== END 2023-01-13 09:59 | disposition short-term general hospital (02) ==
LOC: JER 23:55
PROC: 3E033NZ Introduction of Analgesics, Hypnotics, Sedatives into Peripheral Vein, Percutaneous Approach (ICD-10-PCS; principal; 2023-01-13)
PROC: 3E023GC Introduction of Other Therapeutic Substance into Muscle, Percutaneous Approach (ICD-10-PCS; 2023-01-13)
DX: S22.41XA Multiple fractures of ribs, right side, initial encounter for closed fracture (principal); W19.XXXA Unspecified fall, initial encounter; Y92.9 Unspecified place or not applicable; Z20.822 Contact with and (suspected) exposure to COVID-19
CPT/HCPCS: 0241U-QW; 36415; 70450-TC; 71045-TC-FY; 71260-TC; 72070-TC-FY; 72125-TC; 72128-TC; 72131-TC; 72170-TC-FY; 73030-TC-RT-FY; 73060-TC-RT-FY; 73552-TC-LT-FY; 73552-TC-RT-FY; 73562-TC-RT-FY; 73590-TC-LT-FY; 73590-TC-RT-FY; 74177-TC; 80053; 81003; 84484; 85025; 87086; 93005; 93010; 99285-25; Q9967

== ENCOUNTER 2023-02-25 04:23 | Inpatient (IN) | payer OTHER, MEDICARE ==
[2023-02-25 05:15] LABS: BASO % 1.2 % (0-2.0); EOS % 2.9 % (0-4.5); HEMATOCRIT 43.1 % (32.4-45.2); HEMOGLOBIN 14.6 GM/dL (10.7-15.3); LYMPH % 29.1 % (8-40); MCH 33.2 pg (25.7-33.7); MCHC 33.8 g/dl (32.0-36.0); MEAN CELL VOLUME 98.2 fl (80-96); MEAN PLT VOLUME 8.6 fl (7.5-11.1); MONO % 13.1 % (3.8-10.2); NEUT % 53.7 % (42.8-82.8); PLATELET COUNT 206 10^3/uL (134-434); RBC 4.39 M/mm3 (3.60-5.2); RDW 13.3 % (11.6-15.6); WHITE BLOOD COUNT 6.3 K/mm3 (4.0-10.0)
[2023-02-25 05:16] LABS: INR 1.05 (0.83-1.09); PROTHROMBIN TIME (PATIENT) 12.2 SEC (9.7-13.0)
[2023-02-25 05:18] LABS: ACTIVATED PTT 32.9 SECONDS (25.2-36.5)
[2023-02-25 05:25] LABS: POTASSIUM 4.1 mmol/L (3.5-5.1)
[2023-02-25 05:27] LABS: ALBUMIN 3.7 g/dl (3.4-5.0); CALCIUM 8.8 mg/dL (8.5-10.1); MAGNESIUM 2.1 mg/dL (1.8-2.4)
[2023-02-25 05:28] LABS: BLOOD UREA NITROGEN 23.3 mg/dL (7-18)
[2023-02-25 05:30] LABS: CREATININE 0.9 mg/dL (0.55-1.3)
[2023-02-25 05:31] LABS: PHOSPHOROUS 3.6 mg/dL (2.5-4.9)
[2023-02-25 05:32] LABS: BILIRUBIN,TOTAL 0.6 mg/dL (0.2-1); TOT PROT 7.3 g/dl (6.4-8.2)
[2023-02-25] MEDS ORDERED: MAG HYDROX/AL HYDROX/SIMETH 30 ML UNIT-DOSE CUP PO ONE (05:52)
[2023-02-25] MEDS ORDERED: FAMOTIDINE 20 MG/50 ML IVPB 20 MG/50 ML MG IVPB ONE ×2 (05:52→06:11)
[2023-02-25 05:58] LABS: EPI CELLS 2 /uL (0-25.1); HYALINE CASTS 0 /uL (0-3.1); URINE APPEARANCE CLEAR; URINE BACTERIA 0 /uL (0-1359); URINE BILIRUBIN NEGATIVE (NEGATIVE); URINE COLOR DK YELLOW; URINE GLUCOSE (UA) NEGATIVE (NEGATIVE); URINE KETONE NEGATIVE (NEGATIVE); URINE LEUK ESTERASE TRACE (NEGATIVE); URINE NITRITE NEGATIVE (NEGATIVE); URINE PROTEIN NEGATIVE (NEGATIVE); URINE RBC 18 /uL (0-23.9); URINE UROBILINOGEN 0.2 mg/dL (0.2-1.0); URINE WBC 3 /uL (0-25.8)
[2023-02-25] MEDS ORDERED: LACTATED RINGERS SOLUTION 1000 ML INFUS.BAG IV ONE (06:15)
[2023-02-25] MEDS ORDERED: GABAPENTIN 100 MG CAPSULE ONE (13:39)
[2023-02-25] MEDS: GABAPENTIN 100 MG CAPSULE PO SCH ×2 (13:44→21:20)
[2023-02-25 19:22] VITALS: RESP 18
[2023-02-25] MEDS ORDERED: RANOLAZINE E.R. 500 MG TABLET (FP) ONE (21:11)
[2023-02-25] MEDS: RANOLAZINE E.R. 1,000 MG TABLET (FP) PO SCH (21:21)
[2023-02-26 03:00] VITALS: BMI 34.0
[2023-02-26] MEDS: GABAPENTIN 100 MG CAPSULE PO SCH ×2 (05:50→13:59)
[2023-02-26 08:33] LABS: BASO % 0.9 % (0-2.0); EOS % 2.4 % (0-4.5); HEMATOCRIT 41.2 % (32.4-45.2); HEMOGLOBIN 14.1 GM/dL (10.7-15.3); LYMPH % 31.1 % (8-40); MCH 33.1 pg (25.7-33.7); MCHC 34.2 g/dl (32.0-36.0); MEAN CELL VOLUME 96.8 fl (80-96); MEAN PLT VOLUME 8.8 fl (7.5-11.1); MONO % 13.2 % (3.8-10.2); NEUT % 52.4 % (42.8-82.8); PLATELET COUNT 203 10^3/uL (134-434); RBC 4.26 M/mm3 (3.60-5.2); RDW 13.5 % (11.6-15.6); WHITE BLOOD COUNT 5.9 K/mm3 (4.0-10.0)
[2023-02-26 08:43] LABS: POTASSIUM 4.2 mmol/L (3.5-5.1)
[2023-02-26 08:46] LABS: ALBUMIN 3.4 g/dl (3.4-5.0); BLOOD UREA NITROGEN 15.6 mg/dL (7-18); MAGNESIUM 1.9 mg/dL (1.8-2.4)
[2023-02-26 08:49] LABS: CREATININE 0.8 mg/dL (0.55-1.3); PHOSPHOROUS 3.4 mg/dL (2.5-4.9)
[2023-02-26 08:50] LABS: BILIRUBIN,TOTAL 0.7 mg/dL (0.2-1); TOT PROT 6.6 g/dl (6.4-8.2)
[2023-02-26] MEDS ORDERED: RANOLAZINE E.R. 500 MG TABLET (FP) ONE ×2 (09:39→21:02)
[2023-02-26] MEDS: SODIUM CHLORIDE 1,000 ML IV SCH (09:54)
[2023-02-26] MEDS: CLOPIDOGREL BISULFATE 75 MG TABLET (FP) PO SCH (09:56)
[2023-02-26] MEDS: RANOLAZINE E.R. 1,000 MG TABLET (FP) PO SCH ×2 (09:57→21:34)
[2023-02-26] MEDS: FAMOTIDINE 20 MG TABLET PO SCH (09:57)
[2023-02-26] MEDS: EMPAGLIFLOZIN (JARDIANCE) 10 MG TABLET PO SCH ×2 (09:58→10:05)
[2023-02-26] MEDS: EZETIMIBE 10 MG TABLET (FP) PO SCH (09:59)
[2023-02-26] MEDS: ENOXAPARIN NA (PORCINE) 40 MG/0.4 ML DISP.SYRIN SQ SCH (09:59)
[2023-02-26] MEDS ORDERED: DONEPEZIL HCL 5 MG TABLET (FP) PO SCH ×2 (10:00→13:24)
[2023-02-26] MEDS: POLYETHYLENE GLYCOL (HEALTHYLAX) 3350 17 GM PACKET PO SCH (12:22)
[2023-02-27 07:06] LABS: HEMATOCRIT 39.6 % (32.4-45.2); HEMOGLOBIN 13.2 GM/dL (10.7-15.3); MCH 32.7 pg (25.7-33.7); MCHC 33.3 g/dl (32.0-36.0); MEAN CELL VOLUME 98.1 fl (80-96); MEAN PLT VOLUME 8.9 fl (7.5-11.1); PLATELET COUNT 199 10^3/uL (134-434); RBC 4.04 M/mm3 (3.60-5.2); RDW 13.4 % (11.6-15.6); WHITE BLOOD COUNT 6.3 K/mm3 (4.0-10.0)
[2023-02-27 07:33] LABS: CALCIUM 8.5 mg/dL (8.5-10.1)
[2023-02-27 07:34] LABS: ALBUMIN 3.1 g/dl (3.4-5.0); MAGNESIUM 2.3 mg/dL (1.8-2.4)
[2023-02-27 07:37] LABS: CREATININE 0.8 mg/dL (0.55-1.3); PHOSPHOROUS 3.5 mg/dL (2.5-4.9)
[2023-02-27 07:39] LABS: BILIRUBIN,TOTAL 0.7 mg/dL (0.2-1); TOT PROT 6.4 g/dl (6.4-8.2)
[2023-02-27] MEDS: SODIUM CHLORIDE 1,000 ML IV SCH (08:01)
[2023-02-27 09:38] VITALS: BP 122/68; PULSE 56
[2023-02-27 09:42] VITALS: TEMP 98.4
[2023-02-27] MEDS: POLYETHYLENE GLYCOL (HEALTHYLAX) 3350 17 GM PACKET PO SCH (09:42)
[2023-02-27] MEDS: ENOXAPARIN NA (PORCINE) 40 MG/0.4 ML DISP.SYRIN SQ SCH (09:42)
[2023-02-27] MEDS: RANOLAZINE E.R. 1,000 MG TABLET (FP) PO SCH (09:42)
[2023-02-27] MEDS: EZETIMIBE 10 MG TABLET (FP) PO SCH (09:43)
[2023-02-27] MEDS: FAMOTIDINE 20 MG TABLET PO SCH (09:43)
[2023-02-27] MEDS: CLOPIDOGREL BISULFATE 75 MG TABLET (FP) PO SCH (09:43)
[2023-02-27] MEDS: EMPAGLIFLOZIN (JARDIANCE) 10 MG TABLET PO SCH (09:46)
[2023-02-27] MEDS ORDERED: DONEPEZIL HCL 5 MG TABLET (FP) PO SCH (22:00)
== END 2023-02-27 13:58 | disposition home or self-care (01) | DRG 312 ==
LOC: JER 04:23 → JERBED 06:04 → J4W 19:54 → OBSVTOIN 02-26 09:02
PROVIDERS: ADMIT Internal Medicine; ATTEND Internal Medicine
DX: I95.1 Orthostatic hypotension (principal); F03.90 Unspecified dementia, unspecified severity, without behavioral disturbance, psychotic disturbance, mood disturbance, and anxiety; I10 Essential (primary) hypertension; I25.10 Atherosclerotic heart disease of native coronary artery without angina pectoris; E78.5 Hyperlipidemia, unspecified; M54.9 Dorsalgia, unspecified; G89.29 Other chronic pain; R10.13 Epigastric pain
CPT/HCPCS: 0241U-QW; 36415; 70450-TC; 71045-TC-FY; 74177-TC; 80053; 81003; 82140; 82962; 83605; 83735; 84100; 84484; 85025; 85027; 85610; 85730; 86850; 86900; 86901; 87086; 93005; 93010; 97116-GP; 97161-GP; 99285-25; G0378; Q9967

== ENCOUNTER 2023-04-13 04:28 | Day surgery (SDC) | payer OTHER, MEDICARE ==
[2023-04-09 12:06] VITALS: BMI 32.6
[2023-04-13] MEDS ORDERED: LIDOCAINE HCL/PF 1% SDV 5ML VIAL ONE (07:52)
[2023-04-13] MEDS ORDERED: ACETAMINOPHEN 500 MG TABLET (FP) PO PRN (10:07)
[2023-04-13 10:15] VITALS: RESP 18
[2023-04-13] MEDS ORDERED: LIDOCAINE HCL/PF 2% SDV 5ML VIAL ONE (13:11)
[2023-04-13] MEDS ORDERED: MIDAZOLAM HCL 2 MG/2 ML SINGLE DOSE VIAL ONE (13:50)
[2023-04-13] MEDS ORDERED: ceFAZolin SODIUM 1 GM VIAL ONE (13:50)
[2023-04-13] MEDS: LIDOCAINE HCL 1% PRESERVATIVE FREE - 30ML VIAL IJ ONE ×3 (14:08)
[2023-04-13] MEDS: LIDOCAINE HCL/PF 2% SDV 5ML VIAL INF ONE ×3 (14:08)
[2023-04-13 16:16] VITALS: TEMP 97.3
[2023-04-13 16:58] VITALS: BP 100/62; PULSE 60
== END 2023-04-13 17:37 | disposition home or self-care (01) ==
LOC: JASU-SURG 04:28
PROVIDERS: ATTEND Pain Medicine Pain Medicine
PROC: 00HU3MZ Insertion of Neurostimulator Lead into Spinal Canal, Percutaneous Approach (ICD-10-PCS; principal; 2023-04-13 14:00)
DX: M96.1 Postlaminectomy syndrome, not elsewhere classified (principal)
CPT/HCPCS: 63650; C1897; 76000-TC-FY; C1889

== ENCOUNTER 2023-08-19 04:13 | Day surgery (SDC) | payer OTHER, MEDICARE ==
[2023-08-17 10:40] VITALS: BMI 32.6
[2023-08-19 08:07] VITALS: RESP 18
[2023-08-19] MEDS ORDERED: ACETAMINOPHEN 500 MG TABLET (FP) PO PRN (12:06)
[2023-08-19] MEDS: IOHEXOL 180 MG/1 ML ML IT ONE ×2 (12:10)
[2023-08-19] MEDS: BUPIVACAINE HCL/PF 0.5% (5MG/ML) 10 ML VIAL PNB ONE ×2 (12:10)
[2023-08-19] MEDS: LIDOCAINE HCL 1% PRESERVATIVE FREE - 30ML VIAL IJ ONE (12:10)
[2023-08-19] MEDS: TRIAMCINOLONE ACET 40MG/1ML VIAL IM ONE (12:10)
[2023-08-19 13:48] VITALS: BP 128/75; PULSE 69; TEMP 97.7
== END 2023-08-19 11:40 | disposition home or self-care (01) ==
LOC: JASU-SURG 04:13
PROVIDERS: ATTEND Pain Medicine Pain Medicine
PROC: 3E0U3BZ Introduction of Anesthetic Agent into Joints, Percutaneous Approach (ICD-10-PCS; 2023-08-19)
PROC: 3E0U33Z Introduction of Anti-inflammatory into Joints, Percutaneous Approach (ICD-10-PCS; principal; 2023-08-19 10:00)
DX: M53.3 Sacrococcygeal disorders, not elsewhere classified (principal)
CPT/HCPCS: 76000-TC-FY

== ENCOUNTER 2023-10-03 14:44 | Emergency (ER) | payer OTHER, MEDICARE ==
[2023-10-03 15:00] VITALS: BP 126/78; PULSE 70; RESP 18; TEMP 98.4; BMI 33.0
[2023-10-03] MEDS ORDERED: CEFTRIAXONE 1 GM/50 ML BAG ONE (16:02)
[2023-10-03] MEDS: CEFTRIAXONE 1,000 MG in DEXTROSE 5%-WATER - 50 ML IVPB ONE (16:38)
== END 2023-10-03 17:29 | disposition home or self-care (01) ==
LOC: JERFT 14:44
DX: L03.115 Cellulitis of right lower limb (principal); M79.671 Pain in right foot
CPT/HCPCS: 99284-25

== ENCOUNTER 2023-10-21 08:10 | Observation (INO) | payer OTHER, MEDICARE ==
[2023-10-21] MEDS ORDERED: ACETAMINOPHEN INJECTION 100 ML ONE (08:53)
[2023-10-21] MEDS: ACETAMINOPHEN 1000 MG/100 ML BAG IVPB ONE (09:34)
[2023-10-21 10:02] LABS: BASO % 0.8 % (0-2.0); EOS % 1.6 % (0-4.5); HEMATOCRIT 37.6 % (32.4-45.2); HEMOGLOBIN 12.8 GM/dL (10.7-15.3); LYMPH % 31.6 % (8-40); MCH 34.3 pg (25.7-33.7); MCHC 34.2 g/dl (32.0-36.0); MEAN CELL VOLUME 100.4 fl (80-96); MEAN PLT VOLUME 8.5 fl (7.5-11.1); MONO % 11.1 % (3.8-10.2); NEUT % 54.9 % (42.8-82.8); PLATELET COUNT 197 10^3/uL (134-434); RBC 3.74 M/mm3 (3.60-5.2); RDW 14.2 % (11.6-15.6); WHITE BLOOD COUNT 5.8 K/mm3 (4.0-10.0)
[2023-10-21 10:09] LABS: INR 0.95 (0.83-1.09); PROTHROMBIN TIME (PATIENT) 10.9 SEC (9.7-13.0)
[2023-10-21 10:12] LABS: ACTIVATED PTT 29.8 SECONDS (25.2-36.5)
[2023-10-21 10:43] LABS: POTASSIUM 4.4 mmol/L (3.5-5.1)
[2023-10-21 10:44] LABS: CALCIUM 9.1 mg/dL (8.5-10.1)
[2023-10-21 10:45] LABS: ALBUMIN 3.4 g/dl (3.4-5.0)
[2023-10-21 10:46] LABS: BLOOD UREA NITROGEN 16.8 mg/dL (7-18)
[2023-10-21 10:48] LABS: CREATININE 0.8 mg/dL (0.55-1.3)
[2023-10-21 10:49] LABS: TOT PROT 6.7 g/dl (6.4-8.2)
[2023-10-21 10:51] LABS: BILIRUBIN,TOTAL 0.7 mg/dL (0.2-1)
[2023-10-21] MEDS ORDERED: METOCLOPRAMIDE HCL INJECTION 10 MG/2 ML VIAL ONE (12:26)
[2023-10-21] MEDS: METOCLOPRAMIDE HCL INJECTION 10 MG/2 ML VIAL IVPUSH ONE (12:39)
[2023-10-21] MEDS ORDERED: ASPIRIN 81 MG CHEWABLE TABLETS ONE (14:21)
[2023-10-21 14:35] LABS: EPI CELLS 8 /uL (0-25.1); HYALINE CASTS 0 /uL (0-3.1); URINE APPEARANCE CLEAR; URINE BACTERIA 60 /uL (0-1359); URINE BILIRUBIN NEGATIVE (NEGATIVE); URINE COLOR YELLOW; URINE GLUCOSE (UA) NEGATIVE (NEGATIVE); URINE KETONE NEGATIVE (NEGATIVE); URINE LEUK ESTERASE 2+ (NEGATIVE); URINE NITRITE NEGATIVE (NEGATIVE); URINE PROTEIN NEGATIVE (NEGATIVE); URINE RBC 21 /uL (0-23.9); URINE UROBILINOGEN 0.2 mg/dL (0.2-1.0); URINE WBC 10 /uL (0-25.8)
[2023-10-21] MEDS: ASPIRIN 81 MG CHEWABLE TABLETS PO ONE (14:53)
[2023-10-21] MEDS ORDERED: CYCLOBENZAPRINE HCL 5 MG TABLET ONE (15:14)
[2023-10-21] MEDS: CYCLOBENZAPRINE HCL 10 MG TABLET (FP) PO ONE (15:26)
[2023-10-21] MEDS ORDERED: ARIPiprazole 5 MG TABLET ONE (17:26)
[2023-10-21] MEDS: DONEPEZIL HCL 5 MG TABLET (FP) PO SCH (17:51)
[2023-10-21 20:35] VITALS: BMI 29.2
[2023-10-21] MEDS ORDERED: RANOLAZINE E.R. 500 MG TABLET (FP) ONE (21:02)
[2023-10-21] MEDS: GABAPENTIN 100 MG CAPSULE PO SCH (21:15)
[2023-10-21] MEDS: RANOLAZINE E.R. 1,000 MG TABLET (FP) PO SCH (21:15)
[2023-10-21] MEDS: ACETAMINOPHEN 500 MG TABLET (FP) PO PRN (21:16)
[2023-10-22 04:22] VITALS: RESP 17
[2023-10-22] MEDS ORDERED: RANOLAZINE E.R. 500 MG TABLET (FP) ONE (09:18)
[2023-10-22] MEDS: MEMANTINE HCL 10 MG TABLET (FP) PO SCH (09:30)
[2023-10-22] MEDS: FAMOTIDINE 20 MG TABLET PO SCH (09:30)
[2023-10-22] MEDS: EZETIMIBE 10 MG TABLET (FP) PO SCH (09:30)
[2023-10-22] MEDS: ENOXAPARIN NA (PORCINE) 40 MG/0.4 ML DISP.SYRIN SQ SCH (09:30)
[2023-10-22] MEDS: CLOPIDOGREL BISULFATE 75 MG TABLET (FP) PO SCH (09:30)
[2023-10-22] MEDS: RANOLAZINE E.R. 500 MG TABLET (FP) PO SCH (10:29)
[2023-10-22] MEDS: LIDOCAINE 5% TOPICAL PATCH TP SCH (12:52)
[2023-10-22 15:28] VITALS: BP 143/91; PULSE 68; TEMP 97.9
[2023-10-22] MEDS ORDERED: LIDOCAINE PATCH REMOVAL MC SCH (22:00)
[2023-10-22] MEDS ORDERED: ROSUVASTATIN CA 10 MG TABLET PO SCH (22:00)
== END 2023-10-22 15:39 | disposition home health service (06) ==
LOC: JER 08:10 → JERBED 16:00 → UNDOADMOB 16:00 → INTOOBSV 16:00 → JERBED 17:07 → J4S 19:39
PROVIDERS: ADMIT Internal Medicine; ATTEND Internal Medicine
PROC: 3E033GC Introduction of Other Therapeutic Substance into Peripheral Vein, Percutaneous Approach (ICD-10-PCS; principal; 2023-10-21)
PROC: 3E023GC Introduction of Other Therapeutic Substance into Muscle, Percutaneous Approach (ICD-10-PCS; 2023-10-21)
DX: R51.9 Headache, unspecified (principal); R47.81 Slurred speech; M54.2 Cervicalgia; I11.9 Hypertensive heart disease without heart failure; K59.00 Constipation, unspecified; R07.9 Chest pain, unspecified; F03.90 Unspecified dementia, unspecified severity, without behavioral disturbance, psychotic disturbance, mood disturbance, and anxiety; J44.9 Chronic obstructive pulmonary disease, unspecified; M54.9 Dorsalgia, unspecified; E78.5 Hyperlipidemia, unspecified; I25.2 Old myocardial infarction; K21.9 Gastro-esophageal reflux disease without esophagitis; G89.29 Other chronic pain; Z90.10 Acquired absence of unspecified breast and nipple; Z85.3 Personal history of malignant neoplasm of breast; Z96.653 Presence of artificial knee joint, bilateral; Z96.60 Presence of unspecified orthopedic joint implant; Z96.611 Presence of right artificial shoulder joint; Z96.612 Presence of left artificial shoulder joint; Z90.49 Acquired absence of other specified parts of digestive tract
CPT/HCPCS: 36415; 70450-TC; 70496-TC; 70498-TC; 70551-TC; 71045-TC-FY; 80053; 80061; 81003; 82550; 82962; 83036; 84484; 85025; 85610; 85730; 86850; 86900; 86901; 87086; 93005; 93010; 96372; 96374; 96375; 97116-GP; 97161-GP; 99285-25; G0378; J0131; Q9967

== ENCOUNTER 2023-12-23 05:09 | Day surgery (SDC) | payer OTHER, MEDICARE ==
[2023-12-20 11:56] VITALS: BMI 28.8
[2023-12-23 07:45] VITALS: TEMP 97.1
[2023-12-23] MEDS: LIDOCAINE HCL/PF 2% SDV 5ML VIAL INF ONE ×2 (09:42)
[2023-12-23] MEDS: LIDOCAINE HCL 1% PRESERVATIVE FREE - 30ML VIAL IJ ONE ×2 (09:42)
[2023-12-23] MEDS: BUPIVACAINE HCL/PF 0.5% (5MG/ML) 10 ML VIAL NR ONE ×2 (09:42)
[2023-12-23] MEDS: DEXAMETHASONE SOD PHOSPHATE 10 MG/1 ML VIAL IM ONE ×2 (09:43)
[2023-12-23 10:07] VITALS: BP 119/52; PULSE 51; RESP 16
[2023-12-23] MEDS ORDERED: ACETAMINOPHEN 500 MG TABLET (FP) ONE (10:52)
[2023-12-23] MEDS: ACETAMINOPHEN 500 MG TABLET (FP) PO PRN (10:57)
== END 2023-12-23 11:12 | disposition home or self-care (01) ==
LOC: JASU-SURG 05:09
PROVIDERS: ATTEND Pain Medicine Pain Medicine
PROC: 01513ZZ Destruction of Cervical Nerve, Percutaneous Approach (ICD-10-PCS; principal; 2023-12-23 09:00)
DX: M47.812 Spondylosis without myelopathy or radiculopathy, cervical region (principal)
CPT/HCPCS: 76000-TC-FY; J1100

== ENCOUNTER 2024-05-12 06:35 | Day surgery (SDC) | payer OTHER, MEDICARE ==
[2024-05-11 17:12] VITALS: BMI 29.9
[2024-05-12] MEDS ORDERED: ACETAMINOPHEN 500 MG TABLET (FP) PO PRN (09:05)
[2024-05-12 12:44] VITALS: TEMP 98.7
[2024-05-12 12:45] VITALS: BP 133/79; PULSE 58; RESP 17
== END 2024-05-12 12:35 | disposition home or self-care (01) ==
LOC: JASU-SURG 06:35
PROVIDERS: ATTEND Pain Medicine Pain Medicine
PROC: 01513ZZ Destruction of Cervical Nerve, Percutaneous Approach (ICD-10-PCS; principal; 2024-05-12 10:45)
DX: M47.812 Spondylosis without myelopathy or radiculopathy, cervical region (principal)
CPT/HCPCS: 76000-TC-FY